=== PATIENT | male | born 1960 | race Caucasian/White ===

== ENCOUNTER 2019-09-25 23:20 | Inpatient (IN) | payer MEDICARE, MEDICAID, SELFPAY ==
--- NOTE | 2019-09-25 23:22 | ED_ITS ---
Entered by Constanza Jones, acting as scribe for Sabina Red HPI - SOB/Dyspnea General: Chief Complaint: Shortness of Breath/Dyspnea Stated Complaint: RESPIRATORY DISTRESS Time Seen by Provider: 09/25/19 23:22 Source: patient and EMS Mode of arrival: EMS History of Present Illness: HPI Narrative: 59 y/o male presents to the ED with complaint of SOB and difficulty breathing. EMS states he has been sick for the past 3-4 days. He has had a cough, yellow sputum and increased difficulty breathing. EMS gave him a breathing treatment en route and report he continued to become more SOB. He was given NTG when his pressure continued to climb ( 170/110). Pt was placed on CPAP after NC O2 became insufficient. EMS reports pedal edema and chest congestion. Pt has hx of CHF. MD elicited complaint: shortness of breath Pertinent past history: other (CHF) Onset (ago): day(s) (3-4) Context: recent illness Timing: progressively worsening Severity: moderate Exacerbating factors: movement, coughing, talking and deep breaths Known history of: congestive heart failure Associated symptoms: Reports cough; Deny abdominal pain, dizziness, extremity pain, fever(s), nausea, polydipsia or vomiting Treatment prior to arrival: oxygen, nitroglycerin, diuretics and other (CPAP) Review of Systems General: Reports: other (negative unless marked) Const: Denies: fever, chills, body aches, fatigue or malaise Eyes: Denies: change in vision or blurry vision ENMT: Denies: throat pain, painful swallowing, hoarseness, ear pain, ear discharge, Change in hearing or nasal discharge Resp: Reports: other (See HPI) GI: Denies: abdominal pain, nausea, vomiting, vomiting blood, coffee grounds in vomit, diarrhea, constipation, cramping, blood in stool or black tarry stool : Denies: flank pain, difficulty urinating, painful urination, urinary frequency, urinary urgency, decreased urine ouput, urinary incontinence or blood in urine Musc: Denies: neck pain, back pain, extremity pain, extremity swelling, joint pain, joint swelling, joint warmth or joint stiffness Skin/Breast: Denies: rash, skin tenderness or yellow skin Neuro: Denies: headache, numbness in extremities, weakness in extremities, changes in sensation, lack of coordination, difficulty walking, dizziness, vertigo or confusion Endo: Denies: excessive thirst, tired all the time, cold intolerance, excessive sweating, flushing or hot flashes Jigar/Lymph: Denies: easy bruising, easy bleeding, petechiae or enlarged lymph nodes All/Imm: Denies: hives, throat swelling, tongue swelling, facial swelling or acute wheezing PFSH ED PFSH: Medical History Hyperlipidemia Hypertension Severe chronic obstructive pulmonary disease Surgical History Hx of inguinal hernia surgery Family History Brother Diabetes Social History Smoking and tobacco status: current every day smoker Alcohol intake: never Substance/Drug Use: never Physical Exam Const: EXAM LIMITATIONS: no altered mental status ORIENTATION/CONSCIOUSNESS: Yes awake HENMT: COMMON NORMALS: normocephalic, head/scalp atraumatic, hearing grossly normal bilaterally, external ears normal, EAC's normal, external nose normal and moist oral mucous membranes HEAD & SCALP: normal to inspection, normocephalic and atraumatic FACE & SINUS: normal facial exam and face symmetric NOSE: external nose normal and nares normal EXTERNAL EAR: Yes external ears normal EXTERNAL AUDITORY CANAL: EAC's normal MOUTH: tongue normal Eye: COMMON NORMALS: PERRL, EOMs intact bilaterally, conjunctivae normal and no scleral icterus GENERAL EYE: normal appearance of both eyes and normal light reflex CONJUNCTIVA: Yes conjunctivae normal SCLERA: sclerae normal CORNEA: Yes corneas normal PUPIL: Yes PERRL DIRECT OPHTHALMOSCOPY: Yes normal light reflex Neck/C-Spine: COMMON NORMALS: full ROM, no lymphadenopathy, supple, no meningeal signs and no JVD GENERAL: Yes normal visual inspection and Yes trachea midline CERVICAL SPINE: Yes cervical ROM normal Chest: COMMONS NORMALS: inspection of chest normal and palpation of chest normal Resp: EFFORT & INSPECTION: Yes abnormal respiratory pattern, Yes tachypneic, Yes respiratory distress, Yes labored, Yes grunting, Yes uses accessory muscles and Yes audible wheezes AUSCULTATION: rhonchi and wheezes Cardio: COMMON NORMALS: no JVD, regular rhythm, S1 normal heart sound, S2 normal heart sound, no gallops, no clicks, no murmurs and no rub JUGULAR VENOUS DISTENTION: no JVD RATE: tachycardic RHYTHM: regular rhythm HEART SOUNDS: S1 normal and S2 normal GI: COMMON NORMALS: non-tender, no hepatosplenomegaly and no masses INSPECTION: Yes normal to inspection PALPATION: Yes no hepatosplenomegaly : COMMON NORMALS: Yes no CVA tenderness BLADDER/KIDNEY EXAM: Yes no CVA tenderness Back/Pelvis: COMMON NORMALS: no CVA tenderness, thoracic and lumbar spine normal to inspection, no thoracic nor lumbar tenderness and thoraco-lumbar ROM normal Neuro: COMMON NORMALS: CN's II-XII intact bilaterally, moves all extremities, no focal motor deficits and no sensory deficits noted MENINGEAL SIGNS: Yes no meningeal signs Psych: COMMON NORMALS: mental status grossly normal, thought process normal, cooperative and affect normal THOUGHT PROCESS: normal thought process Course Vital Signs: Vital signs: Vital Signs Pulse Rate 115 H 09/26/19 01:09 Pulse Oximetry 96 09/26/19 01:09 MDM - SOB/Dyspnea MDM Narrative: Medical decision making narrative: Mr. Ramirez comes in in severe respiratory distress and hypercapnic respiratory failure. After placing him on AVAPS he is doing much better. He has been treated with Solu-Medrol, breathing treatments and he was treated for heart failure by EMS. Clinically he is improving and I have endorsed the case to Dr. Unger. He will be admitted to the hospital for further care. I see no sign or symptom of pulmonary embolism at this time as I believe his cough productive of yellow sputum which is a change from his baseline, his wheezing and his hypercapnic failure are enough to explain his symptoms. Lab Data: Labs: Lab Results 09/25/19 09/25/19 09/25/19 Range/Units 23:45 23:53 23:53 WBC 8.0 (4.0-10.0) 10^3/ uL RBC 5.42 H (4.1-5.3) 10^6/u L Hgb 15.3 (11.7-16.6) g/dL Hct 48.0 (42.0-52.0) % MCV 88.6 (80-94) fL MCH 28.2 (28.0-34.0) pg MCHC 31.9 (30.0-36.0) g/dL RDW 12.5 (12.1-15.1) % Plt Count 143 (130-400) 10^3/c mm MPV 12.2 H (7.4-10.4) fL Neut % (Auto) 87.0 % Lymph % (Auto) 5.1 % Douglas % (Auto) 7.1 % Eos % (Auto) 0.4 % Baso % (Auto) 0.2 % Neut # (Auto) 7.0 (1.8-7.7) 10^3/u L Lymph # (Auto) 0.4 L (0.8-4.8) 10^3/u L Douglas # (Auto) 0.6 (0.2-0.9) 10^3/u L Eos # (Auto) 0.0 (0.0-0.8) 10^3/u L Baso # (Auto) 0.0 (0.0-0.1) 10^3/u L Nucleated RBC % (a uto) 0 % Nucleated RBCs # 0.0 /100WBC Specimen Type Arterial Sample Site Radial, right ABG pH 7.28 L (7.35-7.45) ABG pCO2 81.0 H* (35-45) mmHg ABG pO2 79.9 L (80.0-100.0) mmH g ABG HCO3 37.9 H (22-26) mmol/L ABG Base Excess 7.3 H (-2.0-2.0) mmol/ L Miguel Angel Test Pos Hematocrit 48.8 (42-52) % O2 Delivery Device Bipap FiO2 40.0 % Water Well Driller ID [email or web address] Sodium 141 (136-145) mmol/L Potassium 3.6 (3.5-5.1) mmol/L Chloride 89 L (98-107) mmol/L Carbon Dioxide 35 H (22-29) mmol/L Anion Gap 20.6 H (5-19) BUN 9 (6-20) mg/dL Creatinine 0.5 L (0.7-1.2) mg/dL GFR Calculation 170.2 H (90-130) mL/min Glucose 203 H (65-115) mg/dL Lactic Acid (0.5-2.2) mmol/L Calcium 10.2 (8.5-10.5) mg/dL Magnesium 1.9 (1.7-2.3) mg/dL Total Bilirubin 0.5 (0.15-1.2) mg/dL AST 12 (0-40) U/L ALT 12 (0-41) U/L Alkaline Phosphata se 67 (40-130) IU/L Troponin T Baselin e (0-15) ng/mL NT-Pro-B Natriuret Pep 55 (0-125) pg/mL Total Protein 8.2 (6.6-8.7) g/dL Albumin 4.4 (3.5-5.2) g/dL Globulin 3.8 (1.3-4.6) g/dL 09/25/19 09/25/19 09/26/19 Range/Units 23:53 23:53 00:30 WBC (4.0-10.0) 10^3/ uL RBC (4.1-5.3) 10^6/u L Hgb (11.7-16.6) g/dL Hct (42.0-52.0) % MCV (80-94) fL MCH (28.0-34.0) pg MCHC (30.0-36.0) g/dL RDW (12.1-15.1) % Plt Count (130-400) 10^3/c mm MPV (7.4-10.4) fL Neut % (Auto) % Lymph % (Auto) % Douglas % (Auto) % Eos % (Auto) % Baso % (Auto) % Neut # (Auto) (1.8-7.7) 10^3/u L Lymph # (Auto) (0.8-4.8) 10^3/u L Douglas # (Auto) (0.2-0.9) 10^3/u L Eos # (Auto) (0.0-0.8) 10^3/u L Baso # (Auto) (0.0-0.1) 10^3/u L Nucleated RBC % (a uto) % Nucleated RBCs # /100WBC Specimen Type Arterial Sample Site Radial, left ABG pH 7.28 L (7.35-7.45) ABG pCO2 79.6 H* (35-45) mmHg ABG pO2 68.1 L (80.0-100.0) mmH g ABG HCO3 37.7 H (22-26) mmol/L ABG Base Excess 7.3 H (-2.0-2.0) mmol/ L Miguel Angel Test Pos Hematocrit 48.2 (42-52) % O2 Delivery Device Bipap FiO2 40.0 % Water Well Driller ID [email or web address] Sodium (136-145) mmol/L Potassium (3.5-5.1) mmol/L Chloride (98-107) mmol/L Carbon Dioxide (22-29) mmol/L Anion Gap (5-19) BUN (6-20) mg/dL Creatinine (0.7-1.2) mg/dL GFR Calculation (90-130) mL/min Glucose (65-115) mg/dL Lactic Acid 1.4 (0.5-2.2) mmol/L Calcium (8.5-10.5) mg/dL Magnesium (1.7-2.3) mg/dL Total Bilirubin (0.15-1.2) mg/dL AST (0-40) U/L ALT (0-41) U/L Alkaline Phosphata se (40-130) IU/L Troponin T Baselin e 11 (0-15) ng/mL NT-Pro-B Natriuret Pep (0-125) pg/mL Total Protein (6.6-8.7) g/dL Albumin (3.5-5.2) g/dL Globulin (1.3-4.6) g/dL Imaging Data^: CXR: My impression: Cardiomegaly with borderline mild vascular congestion. EKG Data^: EKG 1: Attestation: I personally reviewed and interpreted this EKG as follows: EKG Interpretation Date: 09/25/19 EKG interpretation time: 23:56 Interpretation: Sinus tachycardia with a rate of 126, narrow QRS, nonspecific ST and T wave changes. Discharge Plan Discharge Patient Disposition: Admitted As Inpatient Admit Provider: Harry Fair Clinical Impression: Severe chronic obstructive pulmonary disease Condition: Stable Coding Level of Care Code ED Specialist Icu for Chg Fwd Exam Comprehensive The documentation recorded by the Robert irene Ashley, accurately reflects the service I personally performed and the decisions made by Neda tijerina Eli N Sep 25, 2019 23:20
--- NOTE | 2019-09-25 23:22 | XR_ITS ---
WS: [id number] XR chest 1V portable [id number] REASON FOR EXAM: cough FINDINGS: Comparisons were made to October 21, 2018. There is evidence of a reticular pattern throughout both lung bowling these are increased since previo us exam and suggests chronic bronchitis. There is no definite pneumonia or pulmonary edema seen today. The heart is within normal limits. XR/XR chest 1V portable [id number] IMPRESSION: Increased markings bilaterally suggesting chronic bronchitis.
[2019-09-25 23:23] VITALS: PULSE 131; RESP 27; O2SAT 94
--- NOTE | 2019-09-25 23:23 | ECG_ITS ---
Measurements Intervals [place] Rate: 126 P: 74 IA: 155 QRS: 85 QRSD: 98 T: 74 QT: 335 QTc: [address] & T-WAVE ABNORMALITY ABNORMAL RHYTHM ECG Compared to ECG 11/21/2018 13:32:25 T-wave abnormality now present Electronically Signed On 09-26-2019 9:13:48 LABORER DRIVER by Villa Hart M.D. [email or web address]
[2019-09-25] MEDS: nitroglycerin 1 gm/inch oint Pkt 1 INCH TOPICAL (23:39)
[2019-09-25 23:56] LABS: ABG PH Result 7.28 (7.35-7.45); Arterial Blood Gas Hematocrit 48.8 % (42-52); Base Excess ABG 7.3 mmol/L (-2.0-2.0); Blood Gas Allen Test Pos; Blood Gas Sample Site Radial, right; Blood Gas Sample Type Arterial; HCO3 ABG 37.9 mmol/L (22-26); Oxygen Device BIPAP; PO2 ABG 79.9 mmHg (80.0-100.0)
[2019-09-25 23:59] LABS: Basophils % 0.2 %; Eosinophils % 0.4 %; Hemoglobin 15.3 g/dL (11.7-16.6); Lymphocytes # 0.4 10^3/uL (0.8-4.8); Lymphocytes % 5.1 %; Mean Corpuscular HGB Conc 31.9 g/dL (30.0-36.0); Mean Corpuscular Hemoglobin 28.2 pg (28.0-34.0); Mean Corpuscular Volume 88.6 fL (80-94); Mean Platelet Volume 12.2 fL (7.4-10.4); Monocytes # 0.6 10^3/uL (0.2-0.9); Monocytes % 7.1 %; Nucleated Red Blood Cells % 0 %; Platelet Count 143 10^3/cmm (130-400); Red Blood Count 5.42 10^6/uL (4.1-5.3); Red Cell Distribution Width 12.5 % (12.1-15.1)
[2019-09-26] VITALS (201 sets, daily range): BP systolic 102–181; BP diastolic 63–119; PULSE 65–128; RESP 15–33; O2SAT 81–98
[2019-09-26 00:15] LABS: Lactic Sepsis W/Reflex 1.4 mmol/L (0.5-2.2)
[2019-09-26 00:17] LABS: Troponin(5th) Baseline 11 ng/mL (0-15)
[2019-09-26 00:25] LABS: Alanine Aminotransferase 12 U/L (0-41); Albumin Level 4.4 g/dL (3.5-5.2); Alkaline Phosphatase 67 IU/L (40-130); Anion Gap 20.6 (5-19); Aspartate Amino Transferase 12 U/L (0-40); Blood Urea Nitrogen 9 mg/dL (6-20); Calcium 10.2 mg/dL (8.5-10.5); Carbon Dioxide 35 mmol/L (22-29); Chloride 89 mmol/L (98-107); Globulin 3.8 g/dL (1.3-4.6); Glomerular Filtration Rate 170.2 mL/min (90-130); Glucose 203 mg/dL (65-115); Magnesium 1.9 mg/dL (1.7-2.3); NT Pro B Type Natriuretic Pept 55 pg/mL (0-125); Potassium 3.6 mmol/L (3.5-5.1); Sodium 141 mmol/L (136-145); Total Bilirubin 0.5 mg/dL (0.15-1.2); Total Protein 8.2 g/dL (6.6-8.7)
[2019-09-26 00:40] LABS: ABG PH Result 7.28 (7.35-7.45); Arterial Blood Gas Hematocrit 48.2 % (42-52); Base Excess ABG 7.3 mmol/L (-2.0-2.0); Blood Gas Allen Test Pos; Blood Gas Sample Site Radial, left; Blood Gas Sample Type Arterial; HCO3 ABG 37.7 mmol/L (22-26); Oxygen Device BIPAP; PO2 ABG 68.1 mmHg (80.0-100.0)
[2019-09-26 00:41] LABS: ABG PCO2 79.6 mmHg (35-45)
--- NOTE | 2019-09-26 01:32 | PM.HP ---
Providers/Chief Complaint Primary Care Provider: EMMIE Freedman Chief Complaint: RESPIRATORY DISTRESS History of Present Illness Conrad Ramirez is a 59 year old male with a past medical history of COPD 5 to 6 L oxygen dependent continuously (spirometry in 2014 showed an FEV1 40% of predicted, FVC 64% of predicted, FEV1 over FVC severely reduced at 62%, total lung capacity is 264% consistent with hyperinflation, hypertension, hyperlipidemia, chronic smoker, obesity who presents emergency room due to complaints of shortness of breath. Currently patient is in acute respiratory failure on BiPAP, history was difficult to obtain, but was able to answer short a few basic questions, answer yes or no questions. Patient states that he presented to the emergency room today due to shortness of breath and cough. Patient states that recently has been having more shortness of breath with exertion, to minimal exertion, and shortness of breath now at rest. His cough is been nonproductive. No fevers. No chills. No sick contacts. No recent antibiotic use. No recent steroid use. Patient continues to smoke. He uses 5 to 6 L oxygen throughout the day. No history of DAWIT, does not use CPAP. Does complain of some substernal chest pain, with his shortness of breath, nonradiating, no diaphoresis, no nausea, no vomiting. Review of Systems Const: Denies: fever, chills, fatigue or malaise Eyes: Denies: change in vision or blurry vision ENMT: Denies: nasal congestion Card: Reports: chest pain; Denies: palpitations, irregular heart rhythm or lightheadedness Resp: Reports: shortness of breath and non-productive cough; Denies: productive cough or wheezing GI: Denies: abdominal pain, nausea, vomiting, vomiting blood, diarrhea, constipation, blood in stool or black tarry stool : Denies: flank pain, difficulty urinating, painful urination or urinary frequency Musc: Denies: neck pain or back pain Skin/Breast: Denies: rash Neuro: Denies: headache, dizziness or vertigo Psych: Denies: anxiety or depression Endo: Denies: excessive urination or excessive thirst Medications/Allergies Additional Medication Information Additional Medication Information: Patient does not know which medications he takes at home, PFSH Acute PFSH: Medical History (Updated 09/26/19 @ 01:40 by Harry Fair MD) Hyperlipidemia Hypertension Severe chronic obstructive pulmonary disease Surgical History (Updated 09/26/19 @ 01:40 by Harry Fair MD) Hx of inguinal hernia surgery Family History (Updated 09/26/19 @ 01:40 by Harry Fair MD) Brother Diabetes Social History (Updated 09/26/19 @ 01:40 by Harry Fair MD) Smoking and tobacco status: current every day smoker Alcohol intake: never Substance/Drug Use: never Vitals/I&O/Wt Last Vital Signs Pulse 115 H 09/26/19 01:09 Pulse Ox 96 09/26/19 01:09 Physical Exam Const: COMMON NORMALS: oriented x3 GENERAL APPEARANCE: cooperative, disheveled and diaphoretic NUTRITIONAL APPEARANCE: obese HENMT: COMMON NORMALS: normocephalic HEAD & SCALP: normocephalic Eye: COMMON NORMALS: PERRL, EOMs intact bilaterally and no papilledema GENERAL EYE: normal appearance of both eyes PUPIL: Yes PERRL DIRECT OPHTHALMOSCOPY: Yes no papilledema Neck/C-Spine: COMMON NORMALS: full ROM, no lymphadenopathy, no JVD and thyroid normal THYROID: thyroid normal Lymph: LYMPHATIC: no lymphadenopathy noted Resp: COMMON NORMALS: normal respiratory effort EFFORT & INSPECTION: Yes abnormal respiratory pattern and Yes tachypneic AUSCULTATION: clear to auscultation bilaterally and breath sounds absent (Diminished breath sounds bilaterally) Cardio: COMMON NORMALS: no JVD, regular rate, regular rhythm, S1 normal heart sound, S2 normal heart sound, no gallops, no clicks and no murmurs RATE: tachycardic RHYTHM: regular rhythm HEART SOUNDS: S1 normal and S2 normal GI: COMMON NORMALS: normal to inspection, nondistended, normoactive bowel sounds, soft to palpation, non-tender and no hepatosplenomegaly PALPATION: Yes soft and Yes no hepatosplenomegaly Extremity: COMMON NORMALS: normal to inspection, full ROM, normal capillary refill and no pedal edema Neuro: COMMON NORMALS: oriented x3, moves all extremities and no focal motor deficits OTHER: Cannot follow full neurologic exam due to somnolence, and as it is on BiPAP Psych: COMMON NORMALS: mental status grossly normal and cooperative THOUGHT PROCESS: normal thought process Data : 09/25/19 23:53 09/25/19 23:53 Micro: Microbiology 09/25/19 23:42 Blood Culture - Preliminary Blood SPECIMEN COLLECTED 09/25/19 23:53 Blood Culture - Preliminary Blood SPECIMEN COLLECTED A&P Assessment and plan (1) Acute on chronic respiratory failure with hypoxia and hypercapnia: Secondary to COPD exacerbation, obesity hypoventilation syndrome Patient is a chronic CO2 retainer, PCO2 has been as high as 90s in the past No diagnosis of sleep apnea, but likely has it Plan: -Admit to the ICU -Patient's PCO2 is improving, has been switched over to a avaps, if PCO2 improves continue BiPAP, patient is full code -Patient does have episodes of somnolence, thus a AVAPS will work better, but is arousable, sitting up in the gurney -Continue ipratropium every 4 hours scheduled, every 2 hours as needed -Solu-Medrol 125 followed like 40 every 8 hours -IV hydration -Doxycycline for anti-inflammatory effect, I cannot see any pneumonia on the chest x-ray, pro-Bishnu pending -CT of the chest -Cardiac echocardiogram -Patient will likely benefit from a BiPAP machine as outpatient for chronic CO2 retention Status: Acute Code(s): J96.21 - Acute and chronic respiratory failure with hypoxia; J96.22 - Acute and chronic respiratory failure with hypercapnia (2) Severe chronic obstructive pulmonary disease: Status: Acute Code(s): J44.9 - Chronic obstructive pulmonary disease, unspecified (3) Sinus tachycardia: Likely secondary to acute respiratory failure, continue telemetry monitoring Status: Acute Code(s): R00.0 - Tachycardia, unspecified (4) Hyperlipidemia: Status: Acute Code(s): E78.5 - Hyperlipidemia, unspecified (5) Hypertension: Status: Acute Code(s): I10 - Essential (primary) hypertension (6) Chest pain: -No active chest pain -EKG shows sinus tachycardia -Troponins pending Plan: -Trend troponins, serial EKGs -Aspirin, statin -Patient did have a negative cardiac catheterization in 2010 Status: Acute Code(s): R07.9 - Chest pain, unspecified Attestations Medical Necessity Statement*: Patient requires ICU mission, greater than 2 midnights, for acute respiratory failure secondary COPD Coding Level of Care Code 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
[2019-09-26 01:41] LABS: ABG PH Result 7.33 (7.35-7.45); Arterial Blood Gas Hematocrit 47.4 % (42-52); Base Excess ABG 9.1 mmol/L (-2.0-2.0); Blood Gas Allen Test Pos; Blood Gas Sample Site Radial, right; Blood Gas Sample Type Arterial; HCO3 ABG 38.5 mmol/L (22-26); Oxygen Device BIPAP; PO2 ABG 69.2 mmHg (80.0-100.0)
[2019-09-26 01:42] LABS: ABG PCO2 73.1 mmHg (35-45)
[2019-09-26 02:18] LABS: Troponin 5 2HR 11.39 ng/mL (0-15); Troponin 5 2HR Delta 0.39 ABS# (0-10)
[2019-09-26 02:23] LABS: Bilirubin Urine Neg (NEGATIVE); Blood Urine Neg (Negative); Glucose Urine UA Norm (Normal); Ketones Urine Negative (Negative); Leukocyte Esterase Urine Negative (Negative); Nitrate Urine Negative (Negative); Protein Urine 3+ (Negative); Urine Appearance Clear (CLEAR); Urine Color Yellow (Yellow); Urobilinogen Urine Norm (Negative); pH Urine 5 (5-7)
[2019-09-26 02:24] LABS: Bacteria Urine TRACE; Mucus Urine TRACE; RBC Urine 0-4 /hpf (0-2); Squamous Epithelial Cell Urine 0-4 (0-5); WBC Urine 0-4 /hpf (0-5)
[2019-09-26 02:25] LABS: Add Urine Culture? No
[2019-09-26 02:29] LABS: Amphetamines Screen Urine Negative (Negative); Barbiturates Screen Urine Negative (Negative); Benzodiazepines Screen Urine Negative (Negative); Cocaine Screen Urine Negative (Negative); Opiate Screen Urine Negative (Negative); PCP Screen Urine Negative (Negative); THC Screen Urine Negative (Negative)
--- NOTE | 2019-09-26 02:39 | USCV_ITS ---
Conrad Ramirez Age: 59 Gender: M : 1960 Exam Date: 09/26/2019 06:20 Ordering Phys: Harry Fair MD Technologist: Beckie Kaur Exam Location[place] [facility] [place] Indication: SOB BP: 156 / 90 HR: 89 Rhythm: Sinus Technical Quality: Suboptimal MEASUREMENTS (Male / Female) Normal Values 2D ECHO LV Diastolic Diameter PLAX 3.7 cm 4.2 - 5.9 / 3.9 - 5.3 cm LV Systolic Diameter PLAX 2.8 cm LV Chamber Size 2.7 cm IVS Diastolic Thickness 1.7 cm 0.6 - 1.0 / 0.6 - 0.9 cm IVS Systolic Thickness 1.3 cm LVPW Diastolic Thickness 2.0 cm 0.6 - 1.0 / 0.6 - 0.9 cm LVPW Systolic Thickness 2.3 cm RV Chamber Size 2.8 cm LVOT Diameter 2.1 cm LV Ejection Fraction 2D Teich 47.6 % LV Ejection Fraction MOD 2C 41.3 % LV Ejection Fraction 2C AL 37.2 % LA Diameter 3.2 cm LA Width 3.3 cm LA Height 4.0 cm RA Width 3.8 cm RA Height 2.8 cm Aorta at Sinotubular Diameter 3.1 cm M-MODE LV Diastolic Diameter MM 3.3 cm 4.2 - 5.9 / 3.9 - 5.3 cm LV Systolic Diameter MM 2.1 cm LV Ejection Fraction MM Teich 66.5 % IVS Diastolic Thickness MM 1.1 cm 0.6 - 1.0 / 0.6 - 0.9 cm IVS Systolic Thickness MM 1.6 cm LVPW Diastolic Thickness MM 1.6 cm 0.6 - 1.0 / 0.6 - 0.9 cm LVPW Systolic Thickness MM 1.7 cm RV Diastolic Diameter MM 1.8 cm Aortic Annulus Diameter 3.1 cm LA Ao Ratio MM 1.0 MV E Point Septal Separation 0.5 cm DOPPLER AV Peak Velocity 165.0 cm/s LVOT Peak Velocity 119.0 cm/s AV Area Cont Eq vti 2.2 cm squared AV Area Cont Eq pk 2.4 cm squared MV Area PHT 8.5 cm squared Mitral E to A Ratio 0.8 MV E' Velocity 11.0 cm/s Mitral E to MV E' Ratio 9.4 Mitral E to LV E' Lateral Ratio 8.6 Mitral E to LV E' Septal Ratio 10.5 TR Peak Velocity 188.2 cm/s TR Peak Gradient 14.2 mmHg TR Mean Velocity 138.7 cm/s TR Mean Gradient 8.9 mmHg TR Velocity Time Integral 48.5 cm TV Peak E Velocity 72.0 cm/s Right Atrial Pressure 5.0 mmHg Pulmonary Artery Systolic Pressu 19.2 mmHg PV Peak Velocity 75.0 cm/s RV Acceleration Time 0.2 s RV Ejection Time 0.4 s RV AcT/ET 0.5 FINDINGS Left Ventricle Left ventricular cavity not well visualized. Normal left ventricular size, systolic function and wall thickness, with no regional wall motion abnormalities. Grade I/IV diastolic dysfunction (abnormal relaxation filling pattern), normal to mildly elevated filling pressures. Left ventricular ejection fraction is estimated at 60%. Right Ventricle Right ventricle not well visualized. Normal right ventricular size and systolic function. Normal right ventricular systolic pressure. Right Atrium The right atrium is normal in size. Left Atrium The left atrium is normal in size. Mitral Valve Mitral valve not well visualized. No mitral valve regurgitation. Aortic Valve Aortic valve not well visualized. No aortic valve regurgitation. No aortic valve stenosis. Tricuspid Valve Tricuspid valve not well visualized. Pulmonic Valve Pulmonic valve not well visualized. Pericardium Normal pericardium without effusion. Aorta Normal ascending aorta dimension. CONCLUSIONS Left ventricular cavity not well visualized. Normal left ventricular size, systolic function and wall thickness, with no regional wall motion abnormalities. Grade I/IV diastolic dysfunction (abnormal relaxation filling pattern), normal to mildly elevated filling pressures. Left ventricular ejection fraction is estimated at 60%. Technically limited study. No significant valve abnormalities. No change from the previous study done 04/03/2015 Dr. Villa Hart MD (Electronically Signed) Final Date: 26 September 2019 09:05 S
--- NOTE | 2019-09-26 02:39 | CTR_ITS ---
PROCEDURE INFORMATION: Exam: CT Chest With Contrast Exam date and time: 09/26/2019 4:18 AM Age: 59 years old Clinical indication: Shortness of breath; Additional info: SOB TECHNIQUE: Imaging protocol: Computed tomography of the chest with intravenous contrast. Total DLP: 1037.79 mGy-cm Radiation optimization: All CT scans at this facility use at least one of these dose optimization techniques: automated exposure control; mA and/or kV adjustment per patient size (includes targeted exams where dose is matched to clinical indication); or iterative reconstruction. Contrast material: OMNI 300; Contrast volume: 95 ml; Contrast route: RT AC; COMPARISON: CT chest w con* [id number] 10/28/2016 10:03 AM FINDINGS: Lungs: Apical predominant emphysematous change appears stable. There is an unchanged 7 mm spiculated nodule within the right upper lobe (image 16, series 3). Additional subpleural subcentimeter nodules within the right upper lobe are not significantly changed. Additional scattered 6 mm and less bilateral pulmonary nodules are unchanged. No new pulmonary nodules identified. There is no focal consolidation. There is unchanged chronic interstitial thickening with bilateral reticular opacities. Pleural space: No pneumothorax. No pleural effusion. Heart: No cardiomegaly. No pericardial effusion. Aorta: No aortic aneurysm. Lymph nodes: Multiple mildly enlarged mediastinal and right hilar lymph nodes, some which are calcified appear stable to slightly increased in size from prior with the largest a left paratracheal node measuring up to 1.4 cm in short axis (image 27, series 2). Bones/joints: No acute fracture. Soft tissues: Unremarkable. CT/CT chest w con* [id number] IMPRESSION: 1. Stable appearance of emphysematous change with scattered bilateral pulmonary nodules. There is no focal consolidation. No new pulmonary nodules identified. Continued surveillance per clinical protocol is suggested. 2. Stable to mild interval increase of mediastinal and right hilar adenopathy, which may be reactive. Attention on follow-up suggested. Radiation Dose CTDIVOL = (mGy): DLP = 1037.79 (mGy-cm)
[2019-09-26] MEDS: ipratropium-albuterol 3 mL Neb INHALATION ×6 (03:22→23:16)
[2019-09-26 04:21] LABS: Influenza A by IFA Negative (Negative); Influenza B by IFA Negative (Negative)
[2019-09-26] MEDS: sodium chloride 0.9% 1,000 ML 100 ML IV (04:50)
[2019-09-26] MEDS: doxycycline 100 MG in sodium chloride 0.9% (plus) 100 ML IV (04:51)
[2019-09-26] MEDS: amlodipine 10 mg Tablet PO (04:52)
[2019-09-26] MEDS: enoxaparin 40 mg/0.4 mL Syringe SUBCUT (04:52)
[2019-09-26] MEDS: aspirin 81 mg EC Tablet PO ×2 (04:53→09:13)
[2019-09-26] MEDS: atorvastatin 40 mg Tablet PO ×2 (04:53→20:17)
--- NOTE | 2019-09-26 05:23 | ECG_ITS ---
Measurements Intervals [place] Rate: 108 P: 83 DE: 148 QRS: 80 QRSD: 98 T: 73 QT: 322 QTc: 432 SINUS TACHYCARDIA RIGHT ATRIAL ENLARGEMENT [0.3mV P WAVE] POSSIBLE LEFT ATRIAL ENLARGEMENT [-0.1mV P WAVE IN V1/V2] NONSPECIFIC T-WAVE ABNORMALITY Compared to ECG 11/21/2018 13:32:25 T-wave abnormality now present Electronically Signed On 09-26-2019 9:15:05 HAND TRIMMER by Villa Hart M.D. [email or web address]
--- NOTE | 2019-09-26 06:00 | PC.NURSE ---
patient arrived at 0230, sob but no complaints of pain. he came o stretcher and 3 staff helped him transfer to his bed and settled him. patient is alert, oriented and pleasant. patient on bipap on arrival
[2019-09-26 06:36] LABS: Basophils % 0.2 %; Hematocrit 44.6 % (42.0-52.0); Hemoglobin 14.4 g/dL (11.7-16.6); Lymphocytes # 0.2 10^3/uL (0.8-4.8); Lymphocytes % 3.7 %; Mean Corpuscular HGB Conc 32.3 g/dL (30.0-36.0); Mean Corpuscular Hemoglobin 28.3 pg (28.0-34.0); Mean Corpuscular Volume 87.8 fL (80-94); Mean Platelet Volume 12.3 fL (7.4-10.4); Monocytes # 0.1 10^3/uL (0.2-0.9); Monocytes % 1.3 %; Neutrophils # 5.8 10^3/uL (1.8-7.7); Neutrophils % 94.6 %; Nucleated Red Blood Cells % 0 %; Platelet Count 140 10^3/cmm (130-400); Red Blood Count 5.08 10^6/uL (4.1-5.3); Red Cell Distribution Width 12.6 % (12.1-15.1); White Blood Count 6.2 10^3/uL (4.0-10.0)
[2019-09-26 06:49] LABS: Alanine Aminotransferase 11 U/L (0-41); Albumin Level 4.1 g/dL (3.5-5.2); Alkaline Phosphatase 61 IU/L (40-130); Anion Gap 13.4 (5-19); Aspartate Amino Transferase 11 U/L (0-40); Blood Urea Nitrogen 13 mg/dL (6-20); Calcium 10.1 mg/dL (8.5-10.5); Carbon Dioxide 38 mmol/L (22-29); Chloride 93 mmol/L (98-107); Globulin 3.7 g/dL (1.3-4.6); Glomerular Filtration Rate 220.2 mL/min (90-130); Glucose 164 mg/dL (65-115); Potassium 4.4 mmol/L (3.5-5.1); Sodium 140 mmol/L (136-145); Total Bilirubin 0.3 mg/dL (0.15-1.2); Total Protein 7.8 g/dL (6.6-8.7)
[2019-09-26 06:51] LABS: Troponin 5 6HR 13.72 ng/mL (0-15); Troponin 5 6HR Delta 2.72 ng/L (0-12)
[2019-09-26 07:01] LABS: Procalcitonin 0.12 ng/mL (0-0.5)
[2019-09-26 07:06] LABS: Magnesium 2.1 mg/dL (1.7-2.3); Phosphorus 2.8 mg/dL (2.5-4.5)
[2019-09-26 07:08] LABS: Estmated Average Glucose 105; Hemoglobin A1C 5.3 % (4.0-6.0)
[2019-09-26 07:12] LABS: Chol HDL Ratio 4.14 mg/dL (1.0-5.00); Cholesterol 207 mg/dL (0-200); HDL Cholesterol 50 mg/dL (60-100); LDL Cholesterol Calculated 138 mg/dL (50-129); LDL HDL Ratio 2.76 RATIO (0.00-3.22); Triglycerides 93 mg/dL (0-150)
--- NOTE | 2019-09-26 07:33 | PM.PN ---
Subjective Subjective: Interval history: Patient sleeping when I entered the room. Currently on BiPAP. History and physical reviewed. No specific complaints. Vitals/I&O/Wt Last Vital Signs Pulse 71 09/26/19 05:23 Resp 21 H 09/26/19 04:00 BP 119/82 09/26/19 04:00 Pulse Ox 92 09/26/19 05:23 09/25/19 09/26/19 09/26/19 22:59 06:59 14:59 Intake Total 83.333 / 83.333 Balance 83.333 / 83.333 Weight last 48 hrs Weight 122.651 kg Physical Exam Narrative: EXAM NARRATIVE: General exam is no apparent distress Cardiovascular mild tachycardia, regular, no murmur Lungs diminished breath sounds bilaterally. A few expiratory wheezes are noted Abdomen is soft, positive bowel sounds Extremities trace to 1+ edema bilaterally Data : 09/26/19 06:25 09/26/19 06:25 Micro: Microbiology 09/25/19 23:42 Blood Culture - Preliminary Blood SPECIMEN COLLECTED 09/25/19 23:53 Blood Culture - Preliminary Blood SPECIMEN COLLECTED A&P Assessment and plan (1) Severe chronic obstructive pulmonary disease: Continue IV steroids currently. On 40 mg IV every 8 hours. Will reduce dose slightly. Continue pulmonary toilet with albuterol and Atrovent every 4 hours Change doxycycline to p.o. Status: Acute Code(s): J44.9 - Chronic obstructive pulmonary disease, unspecified (2) Acute on chronic respiratory failure with hypoxia and hypercapnia: Status: Acute Code(s): J96.21 - Acute and chronic respiratory failure with hypoxia; J96.22 - Acute and chronic respiratory failure with hypercapnia (3) Hyperglycemia: A1c normal. Likely blood sugar elevation will resolve with decrease of steroids and eventual discontinue Status: Acute Code(s): R73.9 - Hyperglycemia, unspecified (4) Tobacco dependency: Counseled on abstaining from smoking Status: Acute Code(s): F17.200 - Nicotine dependence, unspecified, uncomplicated Additional A&P Information Hyperlipidemia Hypertension, controlled DVT prophylaxis with Lovenox Reduce IV fluids Laboratory in the a.m. Echocardiogram, CT chest, and TSH have been ordered and are pending from admitting physician. Await results. Attestations Medical Necessity Statement*: Needs continued hospital stay for frequent breathing treatments, support with BiPAP secondary to hypercarbic respiratory failure Coding Level of Care Code Acute Special Effects Designer for Chg F[employer] Diagnoses Severe chronic obstructive pulmonary disease J44.9 Acute on chronic respiratory failure with hypoxia and hypercapnia J96.21; J96.22 Hyperglycemia R73.9 Tobacco dependency F17.200
[2019-09-26 08:12] LABS: Thyroid Stimulating Hormone 1.04 uIU/mL (0.27-4.20)
[2019-09-26] MEDS: iohexol 300 mg/mL 100 mL Btl IV (09:08)
[2019-09-26] MEDS: doxycycline 100 mg Tablet PO ×2 (09:13→17:26)
[2019-09-26] MEDS: FUROsemide 40 mg Tablet PO ×2 (09:13→17:26)
[2019-09-26] MEDS: fenofibrate 145 mg Tablet PO (09:13)
[2019-09-26] MEDS: roflumilast 500 mcg Tablet PO (09:13)
[2019-09-26] MEDS: sodium chloride 0.9% 1,000 ML 50 ML IV (20:16)
[2019-09-27] VITALS (40 sets, daily range): BP systolic 113–147; BP diastolic 60–84; PULSE 60–120; RESP 9–26; TEMP 36.6–37.1; O2SAT 89–98
[2019-09-27] MEDS: enoxaparin 40 mg/0.4 mL Syringe SUBCUT (02:55)
[2019-09-27] MEDS: ipratropium-albuterol 3 mL Neb INHALATION ×6 (03:32→23:16)
[2019-09-27 05:33] LABS: Basophils % 0.2 %; Hematocrit 42.8 % (42.0-52.0); Hemoglobin 13.4 g/dL (11.7-16.6); Lymphocytes # 0.5 10^3/uL (0.8-4.8); Lymphocytes % 8.3 %; Mean Corpuscular HGB Conc 31.3 g/dL (30.0-36.0); Mean Corpuscular Hemoglobin 27.8 pg (28.0-34.0); Mean Corpuscular Volume 88.8 fL (80-94); Mean Platelet Volume 12.5 fL (7.4-10.4); Monocytes # 0.4 10^3/uL (0.2-0.9); Monocytes % 6.3 %; Neutrophils # 5.5 10^3/uL (1.8-7.7); Neutrophils % 84.7 %; Nucleated Red Blood Cells % 0 %; Platelet Count 133 10^3/cmm (130-400); Red Blood Count 4.82 10^6/uL (4.1-5.3); Red Cell Distribution Width 12.3 % (12.1-15.1); White Blood Count 6.5 10^3/uL (4.0-10.0)
[2019-09-27 05:51] LABS: Alanine Aminotransferase 10 U/L (0-41); Albumin Level 3.3 g/dL (3.5-5.2); Alkaline Phosphatase 53 IU/L (40-130); Anion Gap 11.4 (5-19); Aspartate Amino Transferase 11 U/L (0-40); Blood Urea Nitrogen 18 mg/dL (6-20); Carbon Dioxide 39 mmol/L (22-29); Chloride 95 mmol/L (98-107); Globulin 3.9 g/dL (1.3-4.6); Glomerular Filtration Rate 220.2 mL/min (90-130); Glucose 154 mg/dL (65-115); Magnesium 2.3 mg/dL (1.7-2.3); Phosphorus 2.8 mg/dL (2.5-4.5); Potassium 4.4 mmol/L (3.5-5.1); Sodium 141 mmol/L (136-145); Total Bilirubin 0.2 mg/dL (0.15-1.2); Total Protein 7.2 g/dL (6.6-8.7)
[2019-09-27] MEDS: doxycycline 100 mg Tablet PO ×2 (08:55→17:10)
[2019-09-27] MEDS: aspirin 81 mg EC Tablet PO (08:55)
[2019-09-27] MEDS: fenofibrate 145 mg Tablet PO (08:55)
[2019-09-27] MEDS: roflumilast 500 mcg Tablet PO (08:55)
[2019-09-27] MEDS: amlodipine 10 mg Tablet PO (08:56)
[2019-09-27] MEDS: FUROsemide 40 mg Tablet PO ×2 (08:56→17:10)
--- NOTE | 2019-09-27 12:17 | P.PN_ITS ---
Subjective Subjective: Interval history: He is feeling a little bit better. This morning was weaned down to nasal cannula, although currently back to BiPAP as he was going to take a nap. Vitals/I&O/Wt Last Vital Signs Temp 98.7 F 09/27/19 12:00 Pulse 120 H 09/27/19 12:00 Resp 22 H 09/27/19 12:00 BP 130/70 09/27/19 12:00 Pulse Ox 90 09/27/19 12:00 09/26/19 09/27/19 09/27/19 22:59 06:59 14:59 Intake Total 1100 / 1685 240 / 1925 1140 / 1140 Output Total 600 / 1300 600 / 1900 1300 / 1300 Balance 500 / 385 -360 / 25 -160 / -160 Weight last 48 hrs Weight 122.651 kg Physical Exam Const: COMMON NORMALS: no apparent distress and oriented x3 HENMT: COMMON NORMALS: oropharynx normal Neck/C-Spine: COMMON NORMALS: no JVD Resp: AUSCULTATION: diminished lung sounds OTHER: BiPAP mask on. Cardio: COMMON NORMALS: no JVD, regular rhythm, S1 normal heart sound, S2 normal heart sound and no murmurs RHYTHM: regular rhythm HEART SOUNDS: S1 normal and S2 normal GI: COMMON NORMALS: normal to inspection, nondistended, normoactive bowel sounds, soft to palpation and non-tender PALPATION: Yes soft Extremity: COMMON NORMALS: no joint enlargement and no pedal edema OTHER: Bilateral chronic venous stasis changes, but no edema. Neuro: COMMON NORMALS: oriented x3 and moves all extremities Skin: COMMON NORMALS: no rashes or lesions noted GENERAL SKIN EXAM: no rashes or lesions noted Data : 09/27/19 04:42 09/27/19 04:42 Micro: Microbiology 09/26/19 05:30 Gram Stain - Final Sputum - Expectorated Sputum Sputum Culture - Preliminary 09/25/19 23:42 Blood Culture - Preliminary Blood NEGATIVE TO DATE 09/25/19 23:53 Blood Culture - Preliminary Blood NEGATIVE TO DATE 09/26/19 01:53 Bacterial Antigens - Final Urine,Voided A&P Assessment and plan (1) Severe chronic obstructive pulmonary disease: Given slow improvement for now we will continue IV steroids unchanged. They were reduced to 40 mg every 12 hours. Continue pulmonary toilet with albuterol and Atrovent every 4 hours Continue doxycycline for now. CT chest with stable appearing emphysema, scattered bilateral pulmonary nodules. No focal consolidation. CT chest with contrast without obvious reported PE. Stable mediastinal and right hilar adenopathy which may be reactive. Consider follow-up. We will transfer him out of ICU. Continuous pulse oximetry. He reports at home he is on 5 L oxygen chronically by nasal cannula. Given severity of his COPD, slow improvement, hypercapnia, will assess with overnight pulse oximetry as he may likely benefit from BiPAP at home. Status: Acute Code(s): J44.9 - Chronic obstructive pulmonary disease, unspecified (2) Acute on chronic respiratory failure with hypoxia and hypercapnia: Severe distribution of COPD. As above. Status: Acute Code(s): J96.21 - Acute and chronic respiratory failure with hypoxia; J96.22 - Acute and chronic respiratory failure with hypercapnia (3) Hyperglycemia: A1c normal. Glucose with some improvement. Likely were secondary to steroids currently. Status: Acute Code(s): R73.9 - Hyperglycemia, unspecified (4) Tobacco dependency: Encourage cessation. Status: Acute Code(s): F17.200 - Nicotine dependence, unspecified, uncomplicated Additional A&P Information Hyperlipidemia Hypertension, controlled DVT prophylaxis with Lovenox Attestations Medical Necessity Statement*: Continue admission for assessment management of severe exacerbation of COPD, acute on severe failure with hypoxia, hypercapnia. Coding Level of Care Code Acute Seasonal Sales Associate for Chg Fwd Diagnoses Severe chronic obstructive pulmonary disease J44.9 Acute on chronic respiratory failure with hypoxia and hypercapnia J96.21; J96.22 Hyperglycemia R73.9 Tobacco dependency F17.200
--- NOTE | 2019-09-27 13:14 | PC.CHAP ---
Pastoral Care Encounter/Spiritual Assessment Type of Contact [] Declined allergist visit [] Patient/Family/Request visit [] Outpatient visit [] Follow-up visit [] Physician referral [] Code/Alert [x] Routine visit [] Staff referral [] Actively dying [] Patient sleeping [] Family support [] [] Out of room [] Palliative care [] [] Receiving care in room [] Pre-surgical visit [] Trauma [] Long length of stay [x] ICU visit [] Other: Relational/Emotional Strength [x] Patient feels connected with others/family/visitors/staff [] Distress [] Loneliness/isolation [x] Abandonment Spirituality of Patient [] Person of [place] [] Attends Anglican of their [place] [x] Believes in Prayer [] Reads Bible or Sikh materials [] There are Spiritual issues to be addressed Crate Icer Interventions [x] Prayer [x] Active listening [x] Non-anxious presence [x] Spiritual/emotional support [] Crisis/trauma care [] Spiritual counseling [] Bereavement support [] Provided bereavement packet [] Provided Bible/devotional materials [] Provided toy/stuffed animal, coloring book to patient or family member [] Provided Communion [] Anointing/[place] [] Salvation [x] Completed spiritual assessment [] Other: Impact on Illness or Injury [] Angry [] Fearful [] Anxious [] Often cries [] Exhaustion [] Unable to work [] Unable to attend methodist [] Unable to walk/stand [] Unable to read [] Unable to drive [] Unable to eat/drink [] Unable to sleep [] Unable to be with family [] Patient intubated [] Other: Summary Patient expressed continued grief over his leaving him. Patient stated that he did not know if he had any tests or procedures coming up and wasn't sure what the course of treatment was going to be. Patient asked for prayer for his children; allergist prayed with him. Patient was visited by Crate Icermarnie Mar. Time spent with patient 13 minutes
--- NOTE | 2019-09-27 14:05 | PC.RESP ---
Patient given information on Smoking Cessation and Pulmonary Rehab.
[2019-09-27] MEDS: sodium chloride 0.9% 1,000 ML 50 ML IV (16:12)
--- NOTE | 2019-09-27 19:00 | PC.NURSE ---
Introduction of staff and report received, aidet.
[2019-09-27] MEDS: atorvastatin 40 mg Tablet PO (21:40)
[2019-09-28] VITALS (17 sets, daily range): BP systolic 101–156; BP diastolic 63–79; PULSE 71–117; RESP 16–24; TEMP 36.4–36.8; O2SAT 90–98
[2019-09-28] MEDS: sodium chloride 0.9% 1,000 ML 50 ML IV (01:15)
[2019-09-28] MEDS: ipratropium-albuterol 3 mL Neb INHALATION ×5 (03:20→20:35)
[2019-09-28] MEDS: enoxaparin 40 mg/0.4 mL Syringe SUBCUT (04:28)
[2019-09-28 05:49] LABS: Hematocrit 42.6 % (42.0-52.0); Hemoglobin 13.4 g/dL (11.7-16.6); Lymphocytes # 0.7 10^3/uL (0.8-4.8); Lymphocytes % 9.4 %; Mean Corpuscular HGB Conc 31.5 g/dL (30.0-36.0); Mean Corpuscular Hemoglobin 27.8 pg (28.0-34.0); Mean Corpuscular Volume 88.4 fL (80-94); Mean Platelet Volume 12.6 fL (7.4-10.4); Monocytes # 0.4 10^3/uL (0.2-0.9); Neutrophils # 6.1 10^3/uL (1.8-7.7); Nucleated Red Blood Cells % 0 %; Platelet Count 134 10^3/cmm (130-400); Red Blood Count 4.82 10^6/uL (4.1-5.3); Red Cell Distribution Width 12.3 % (12.1-15.1); White Blood Count 7.1 10^3/uL (4.0-10.0)
[2019-09-28 06:09] LABS: Alanine Aminotransferase 13 U/L (0-41); Albumin Level 3.5 g/dL (3.5-5.2); Alkaline Phosphatase 53 IU/L (40-130); Anion Gap 13.2 (5-19); Aspartate Amino Transferase 14 U/L (0-40); Blood Urea Nitrogen 16 mg/dL (6-20); Calcium 9.8 mg/dL (8.5-10.5); Carbon Dioxide 38 mmol/L (22-29); Chloride 92 mmol/L (98-107); Globulin 3.2 g/dL (1.3-4.6); Glomerular Filtration Rate 220.2 mL/min (90-130); Glucose 142 mg/dL (65-115); Magnesium 2.3 mg/dL (1.7-2.3); Phosphorus 3.8 mg/dL (2.5-4.5); Potassium 4.2 mmol/L (3.5-5.1); Sodium 139 mmol/L (136-145); Total Bilirubin 0.2 mg/dL (0.15-1.2); Total Protein 6.7 g/dL (6.6-8.7)
[2019-09-28] MEDS: fenofibrate 145 mg Tablet PO (08:33)
[2019-09-28] MEDS: aspirin 81 mg EC Tablet PO (08:33)
[2019-09-28] MEDS: roflumilast 500 mcg Tablet PO (08:33)
[2019-09-28] MEDS: doxycycline 100 mg Tablet PO ×2 (08:33→17:56)
[2019-09-28] MEDS: amlodipine 10 mg Tablet PO (08:33)
[2019-09-28] MEDS: FUROsemide 40 mg Tablet PO ×2 (08:33→17:56)
--- NOTE | 2019-09-28 19:00 | PC.NURSE ---
Introduction of staff and report received, aidet.
--- NOTE | 2019-09-28 20:25 | PC.NURSE ---
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 States Dr told him he didn't have to, that since he was on continuous pulse ox, that was all he needed. Dr Mao made aware.
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
[2019-09-28] MEDS: atorvastatin 40 mg Tablet PO (21:20)
[2019-09-28] MEDS: predniSONE 20 mg Tablet 40 MG PO (21:24)
[2019-09-29] VITALS (13 sets, daily range): BP systolic 114–143; BP diastolic 70–82; PULSE 67–104; RESP 16–20; TEMP 36.5–36.7; O2SAT 90–98
[2019-09-29] MEDS: ipratropium-albuterol 3 mL Neb INHALATION ×4 (00:04→12:36)
[2019-09-29] MEDS: enoxaparin 40 mg/0.4 mL Syringe SUBCUT (01:36)
[2019-09-29 06:04] LABS: Basophils % 0.1 %; Hematocrit 46.6 % (42.0-52.0); Hemoglobin 14.9 g/dL (11.7-16.6); Lymphocytes # 0.8 10^3/uL (0.8-4.8); Lymphocytes % 10.2 %; Mean Corpuscular Hemoglobin 27.9 pg (28.0-34.0); Mean Corpuscular Volume 87.1 fL (80-94); Mean Platelet Volume 12.6 fL (7.4-10.4); Monocytes # 0.3 10^3/uL (0.2-0.9); Monocytes % 4.2 %; Neutrophils # 6.7 10^3/uL (1.8-7.7); Neutrophils % 83.8 %; Nucleated Red Blood Cells % 0 %; Platelet Count 154 10^3/cmm (130-400); Red Blood Count 5.35 10^6/uL (4.1-5.3); Red Cell Distribution Width 12.4 % (12.1-15.1); White Blood Count 8.1 10^3/uL (4.0-10.0)
[2019-09-29] MEDS: roflumilast 500 mcg Tablet PO (08:44)
[2019-09-29] MEDS: fenofibrate 145 mg Tablet PO (08:44)
[2019-09-29] MEDS: FUROsemide 40 mg Tablet PO (08:44)
[2019-09-29] MEDS: doxycycline 100 mg Tablet PO (08:45)
[2019-09-29] MEDS: predniSONE 20 mg Tablet 40 MG PO (08:45)
[2019-09-29] MEDS: aspirin 81 mg EC Tablet PO (08:45)
[2019-09-29] MEDS: amlodipine 10 mg Tablet PO (08:45)
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
[2019-09-30 12:01] LABS: Adenovirus Not Detected (Not Detected); Human Metapneumovirus Not Detected (Not Detected); Human Parainflu Virus 1 Not Detected (Not Detected); Human Parainflu Virus 2 Not Detected (Not Detected); Human Parainflu Virus 3 Not Detected (Not Detected); Human Rsv A Not Detected (Not Detected); Influenza A Not Detected (Not Detected); Influenza B Not Detected (Not Detected); Rhinovirus/Enterovirus Not Detected (Not Detected)
== END 2019-09-29 15:44 | disposition home or self-care (01) | DRG 190 ==
LOC: ER 23:41 → ICU 09-26 01:50 → MEDSURG 09-27 15:48
PROVIDERS: Admitting Provider Family Medicine; Emergency Provider Emergency Medicine; Family Provider Nurse Practitioner; PCP Nurse Practitioner; Visit Provider Internal Medicine
DX: J44.1 Chronic obstructive pulmonary disease with (acute) exacerbation (principal); J96.21 Acute and chronic respiratory failure with hypoxia; J96.22 Acute and chronic respiratory failure with hypercapnia; F17.210 Nicotine dependence, cigarettes, uncomplicated; Z99.81 Dependence on supplemental oxygen; E78.5 Hyperlipidemia, unspecified; E66.9 Obesity, unspecified; Z68.36 Body mass index [BMI] 36.0-36.9, adult; I10 Essential (primary) hypertension; R73.9 Hyperglycemia, unspecified; T38.0X5A Adverse effect of glucocorticoids and synthetic analogues, initial encounter; R00.0 Tachycardia, unspecified; Z88.8 Allergy status to other drugs, medicaments and biological substances; Z79.82 Long term (current) use of aspirin; Z79.899 Other long term (current) drug therapy
CPT/HCPCS: 12345; 36415; 36600; 71045; 71260; 80053; 80061; 80307; 81001; 82803; 83036; 83605; 83735; 83880; 84100; 84145; 84443; 84484; 85025; 86403; 87040; 87070; 87205; 87804; 93005; 93306; 94640; 94660; 94762; 96372; 96375; 99283; J0743; J1650; J2920; J2930; J3490; J7030; J7050; J7512; Q9967

== ENCOUNTER → 2019-12-28 10:21 | Outpatient (BNVA) | payer MEDICARE, MEDICAID, SELFPAY | PROVIDERS: Family Provider Nurse Practitioner; PCP Nurse Practitioner; Visit Provider Nurse Practitioner | DX: M79.672 Pain in left foot (principal); J44.9 Chronic obstructive pulmonary disease, unspecified; R73.9 Hyperglycemia, unspecified | CPT/HCPCS: 73630; 80053; 83036 ==

== ENCOUNTER 2020-01-13 12:50 | Outpatient (CLI) | payer MEDICARE, MEDICAID, SELFPAY ==
--- NOTE | 2020-01-13 15:17 | PFTS_ITS ---
Date of Study:01/13/20 Date of Dictation: MECHANICS: Forced vital capacity (FVC) is Reduced. Forced expiratory volume in one second (FEV1) is Reduced. FEV1/FVC is Reduced. FLOW VOLUME LOOP: Reduced flow at all lung volumes with significant scooping. LUNG VOLUMES: Total lung capacity (TLC) is Normal. Residual volume (RV) is Elevated. DIFFUSING CAPACITY FOR CARBON MONOXIDE: Severely reduced. INTERPRETATION: The pulmonary function tests are Consistent with very severe airflow obstruction. Lung volumes are consistent with air trapping. Gas exchange is severely reduced. MTDD
== END 2020-01-13 12:51 | disposition home or self-care (01) ==
LOC: RT 12:54
PROVIDERS: Family Provider Nurse Practitioner; PCP Nurse Practitioner; Visit Provider Internal Medicine Critical Care Medicine
DX: J44.9 Chronic obstructive pulmonary disease, unspecified (principal)
CPT/HCPCS: 94060; 94726; 94729; J7611

== ENCOUNTER → 2020-05-16 14:42 | Outpatient (BNVA) | payer MEDICARE, MEDICAID, SELFPAY | PROVIDERS: Family Provider Nurse Practitioner; PCP Nurse Practitioner; Visit Provider Nurse Practitioner | DX: I11.0 Hypertensive heart disease with heart failure (principal); E78.5 Hyperlipidemia, unspecified; J44.9 Chronic obstructive pulmonary disease, unspecified; I50.9 Heart failure, unspecified | CPT/HCPCS: 80053; 81000; 85025 ==

== ENCOUNTER 2020-05-25 15:19 | Inpatient (IN) | payer MEDICARE, MEDICAID, SELFPAY ==
[2020-05-25] VITALS (18 sets, daily range): BP systolic 108–177; BP diastolic 66–82; PULSE 65–137; RESP 16–30; TEMP 37.2–38.8; O2SAT 86–100; BMI 38.6
--- NOTE | 2020-05-25 15:26 | XR_ITS ---
WS: [id number] Portable AP upright chest, 05/25/2020 Clinical Data: chest pain Comparison: Portable chest, 09/25/2019. Findings: No nodules, masses or effusions are seen. The heart is normal. The pulmonary vascularity is not increased. No pneumonia or pneumothorax is seen. There are basilar interstitial changes probably from chronic lung disease. The diaphragms are flattened. XR/XR chest 1V portable [id number] Impression: Hyperinflation and bibasilar interstitial opacities consistent with chronic obs tructive pulmonary disease.
--- NOTE | 2020-05-25 15:27 | ECG_ITS ---
[facility] Test Date: 2020-05-25 Pat Name: Conrad Ramirez Department: Room: Gender: Male Data Analysis Assistant: : 1960 Requested By: Sabina Gomes Order Number: [id number] Bergman MD: Dirk Perez M.D. Measurements Intervals [place] Rate: 133 P: 79 VA: 181 QRS: 80 QRSD: 93 T: 73 QT: 332 QTc: 494 Interpretive Statements SINUS TACHYCARDIA NONSPECIFIC T-WAVE ABNORMALITY ABNORMAL RHYTHM ECG Compared to ECG 09/26/2019 01:47:14 Atrial abnormality no longer present T-wave abnormality still present Electronically Signed On 05-25-2020 18:33:28 CDT by Dirk Perez M.D. [email or web address]
--- NOTE | 2020-05-25 15:59 | ED_ITS ---
HPI - General Adult General: Chief complaint: Shortness of Breath/Dyspnea Stated complaint: RUNNING A FEVER/ SOB Time Seen by Provider: 05/25/20 15:23 Source: EMS Mode of arrival: EMS Limitations: altered mental status History of Present Illness: HPI narrative: Mr. Ramirez is a 59-year-old male who comes in via EMS with report of altered mental status and fever. Patient is on CPAP and appears lethargic. Family states that he was normal until found by his son this afternoon and the patient appeared weak and lethargic. He also was covered up with a blanket and appeared chilled. EMS got a axillary temperature of 103.4 in route and then recheck this oral and found it to be at 102. Patient has not received any antipyretics up till now. Patient was also noted to be hypoxic and labored. Patient was placed on CPAP but no other medicines have been given. All further information at this time is taken from old charts. Review of Systems General: Reports: ROS unobtainable due to mental status and Other (Pertinent positive review of systems is noted in HPI as best as can be ascertained.) [facility] ED PFSH: Medical History (Updated 05/25/20 @ 18:48 by Ivan Chau MD) CHF (congestive heart failure) Environmental and seasonal allergies Hyperlipidemia Hypertension Severe chronic obstructive pulmonary disease Surgical History History of colonoscopy with polypectomy 2015 Hx of inguinal hernia surgery Family History Brother Diabetes Social History Smoking and tobacco status: current every day smoker cigarettes Packs smoked per day: 1 Years cigarettes smoked: 45 [ Other cigarette details: Hx of 2PPD ] Quit status (tobacco): considering quitting Second hand smoke exposure: Yes Smoking risk assessment/counseling performed?: Yes Alcohol intake: never Desire information about alcohol rehabilitation?: No Counseling given: No Desire information about substance/drug rehabilitation?: No Counseling given: No Adopted: No Caregiver/support person: No Lives independently: Yes Household members: children Housing: House Marital status: Single service: No Current occupational status: disabled History of recent travel: No Current gender identity: Male Physical Exam Const: COMMON NORMALS: alert GENERAL APPEARANCE: in distress (Respiratory) and lethargic ORIENTATION/CONSCIOUSNESS: Yes lethargic HENMT: COMMON NORMALS: normocephalic, atraumatic, external ears normal, EAC's normal and Normal external nose present HEAD & SCALP: normal to inspection, normocephalic and atraumatic FACE & SINUS: normal facial exam and face symmetric NOSE: Normal external nose present and Normal nares present EXTERNAL EAR: Yes external ears normal EXTERNAL AUDITORY CANAL: EAC's normal MOUTH: Normal oral and palatal mucosa present, lip normal and tongue normal Eye: COMMON NORMALS: Equal, round and reactive pupils present and conjunctivae normal GENERAL EYE: appearance normal, both eyes and all related structures ALIGNMENT: Yes alignment normal PERIORBITAL: periorbital findings normal EYELID: eyelids normal CONJUNCTIVA: Yes conjunctivae normal SCLERA: sclerae normal PUPIL: Yes Equal, round and reactive pupils present Neck/C-Spine: COMMON NORMALS: full ROM, no lymphadenopathy, supple, no meningeal signs and no JVD GENERAL: Yes normal visual inspection and Yes trachea midline Chest: COMMONS NORMALS: normal inspection of the chest and normal palpation of entire chest wall Resp: EFFORT & INSPECTION: Yes tachypneic and Yes labored AUSCULTATION: rhonchi, wheezes and diminished lung sounds Cardio: COMMON NORMALS: no JVD, regular rate, regular rhythm, S1 normal heart sound present and S2 normal heart sound present RATE: regular rate RHYTHM: regular rhythm HEART SOUNDS: S1 normal heart sound present, S2 normal heart sound present, no click, no gallops, no murmurs and no rubs GI: COMMON NORMALS: Soft to palpation and No hepatosplenomegaly present PALPATION: Yes Soft to palpation, No Tenderness to palpation present (GI), No Guarding due to palpation present (GI), No Rigid due to palpation, Yes No hepatosplenomegaly present, No Hernia present, No Palpable mass present and No Pulsatile mass present : COMMON NORMALS: Yes no CVA tenderness BLADDER/KIDNEY EXAM: Yes no CVA tenderness Back/Pelvis: COMMON NORMALS: no CVA tenderness, thoracic and lumbar spine normal to inspection, no thoracic nor lumbar tenderness and thoraco-lumbar ROM normal Extremity: COMMON NORMALS: normal to inspection, full ROM, capillary refill normal, no joint enlargement and no calf tenderness Neuro: COMMON NORMALS: CN's II-XII intact bilaterally, moves all extremities, no focal motor deficits and no sensory deficits noted SENSORIUM/ORIENTATION: Yes alert and Yes lethargic MENINGEAL SIGNS: Yes no meningeal signs SPEECH: speech normal Skin: COMMON NORMALS: no rashes or lesions noted, turgor normal, no jaundice, no petechiae and no mottling GENERAL SKIN EXAM: no rashes or lesions noted and turgor normal Course Vital Signs: Vital signs: Vital Signs Temperature 102 F H 05/25/20 15:36 Pulse Rate 96 05/25/20 18:17 Respiratory Rate 24 H 05/25/20 18:17 Blood Pressure 108/74 05/25/20 18:17 Pulse Oximetry 95 05/25/20 18:17 MDM - General Adult MDM Narrative: Medical decision making narrative: 1753 -patient is still in mild distress and is not moving much air. Breathing treatments have not yet been completed. Patient is still dependent on BiPAP to keep his oxygen elevated. I have reviewed the case in full with Dr. Islas who agrees to meet the patient in the ICU. We will send the PTC test for Covid. Continue steroids, breathing treatments and will give empiric antibiotics. Lab Data: Attestation: I reviewed the patient's lab results. Labs: Lab Results 05/25/20 05/25/20 05/25/20 Range/Units 15:46 15:46 15:46 WBC 16.4 H (4.0-10.0) 10^3/ uL RBC 5.47 H (4.1-5.3) 10^6/u L Hgb 15.7 (11.7-16.6) g/dL Hct 49.8 (42.0-52.0) % MCV 91.0 (80-94) fL MCH 28.7 (28.0-34.0) pg MCHC 31.5 (30.0-36.0) g/dL RDW 13.6 (12.1-15.1) % Plt Count 100 L (130-400) 10^3/c mm MPV 13.0 H (7.4-10.4) fL Neut % (Auto) 90.5 % Lymph % (Auto) 3.2 % Callaway % (Auto) 5.2 % Eos % (Auto) 0.0 % Baso % (Auto) 0.2 % Neut # (Auto) 14.83 H (1.8-7.7) 10^3/u L Lymph # (Auto) 0.5 L (0.8-4.8) 10^3/u L Callaway # (Auto) 0.9 (0.2-0.9) 10^3/u L Eos # (Auto) 0.0 (0.0-0.8) 10^3/u L Baso # (Auto) 0.0 (0.0-0.1) 10^3/u L Nucleated RBC % (a uto) 0 % Nucleated RBCs # 0.0 /100WBC PT 13.60 (12.1-14.9) SECO NDS INR 1.01 (0.8-1.2) D-Dimer (0-0.59) ug/mIFE U Specimen Type Sample Site ABG pH (7.35-7.45) ABG pCO2 (35-45) mmHg ABG pO2 (80.0-100.0) mmH g ABG HCO3 (22-26) mmol/L ABG Base Excess (-2.0-2.0) mmol/ L Miguel Angel Test Hematocrit (42-52) % O2 Delivery Device FiO2 % Oven Technician ID Sodium 137 (136-145) mmol/L Potassium 3.5 (3.5-5.1) mmol/L Chloride 93 L (98-107) mmol/L Carbon Dioxide 29 (22-29) mmol/L Anion Gap 18.5 (5-19) BUN 14 (6-20) mg/dL Creatinine 0.5 L (0.7-1.2) mg/dL GFR Calculation 170.2 H (90-130) mL/min Glucose 114 (65-115) mg/dL Calculated Osmolal ity 285 (285-295) mOsm/k g Lactic Acid (0.5-2.2) mmol/L Calcium 9.6 (8.5-10.5) mg/dL Magnesium 1.9 (1.7-2.3) mg/dL Total Bilirubin 0.5 (0.15-1.2) mg/dL AST 15 (0-40) U/L ALT 12 (0-41) U/L Alkaline Phosphata se 56 (40-130) IU/L Creatine Kinase 49 (39-308) U/L Troponin T Baselin e (0-15) ng/L Total Protein 6.7 (6.6-8.7) g/dL Albumin 0.2 L (3.5-5.2) g/dL Globulin 6.5 H (1.3-4.6) g/dL Influenza Type A A g (Negative) Influenza Type B A g (Negative) SARS-CoV-2 Ag (Rap id) (Negative) 05/25/20 05/25/20 05/25/20 Range/Units 15:46 15:46 15:57 WBC (4.0-10.0) 10^3/ uL RBC (4.1-5.3) 10^6/u L Hgb (11.7-16.6) g/dL Hct (42.0-52.0) % MCV (80-94) fL MCH (28.0-34.0) pg MCHC (30.0-36.0) g/dL RDW (12.1-15.1) % Plt Count (130-400) 10^3/c mm MPV (7.4-10.4) fL Neut % (Auto) % Lymph % (Auto) % Callaway % (Auto) % Eos % (Auto) % Baso % (Auto) % Neut # (Auto) (1.8-7.7) 10^3/u L Lymph # (Auto) (0.8-4.8) 10^3/u L Callaway # (Auto) (0.2-0.9) 10^3/u L Eos # (Auto) (0.0-0.8) 10^3/u L Baso # (Auto) (0.0-0.1) 10^3/u L Nucleated RBC % (a uto) % Nucleated RBCs # /100WBC PT (12.1-14.9) SECO NDS INR (0.8-1.2) D-Dimer 0.68 H (0-0.59) ug/mIFE U Specimen Type Sample Site ABG pH (7.35-7.45) ABG pCO2 (35-45) mmHg ABG pO2 (80.0-100.0) mmH g ABG HCO3 (22-26) mmol/L ABG Base Excess (-2.0-2.0) mmol/ L Miguel Angel Test Hematocrit (42-52) % O2 Delivery Device FiO2 % Oven Technician ID Sodium (136-145) mmol/L Potassium (3.5-5.1) mmol/L Chloride (98-107) mmol/L Carbon Dioxide (22-29) mmol/L Anion Gap (5-19) BUN (6-20) mg/dL Creatinine (0.7-1.2) mg/dL GFR Calculation (90-130) mL/min Glucose (65-115) mg/dL Calculated Osmolal ity (285-295) mOsm/k g Lactic Acid 1.7 (0.5-2.2) mmol/L Calcium (8.5-10.5) mg/dL Magnesium (1.7-2.3) mg/dL Total Bilirubin (0.15-1.2) mg/dL AST (0-40) U/L ALT (0-41) U/L Alkaline Phosphata se (40-130) IU/L Creatine Kinase (39-308) U/L Troponin T Baselin e 18 H (0-15) ng/L Total Protein (6.6-8.7) g/dL Albumin (3.5-5.2) g/dL Globulin (1.3-4.6) g/dL Influenza Type A A g (Negative) Influenza Type B A g (Negative) SARS-CoV-2 Ag (Rap id) (Negative) 05/25/20 05/25/20 05/25/20 Range/Units 16:26 16:26 17:26 WBC (4.0-10.0) 10^3/ uL RBC (4.1-5.3) 10^6/u L Hgb (11.7-16.6) g/dL Hct (42.0-52.0) % MCV (80-94) fL MCH (28.0-34.0) pg MCHC (30.0-36.0) g/dL RDW (12.1-15.1) % Plt Count (130-400) 10^3/c mm MPV (7.4-10.4) fL Neut % (Auto) % Lymph % (Auto) % Callaway % (Auto) % Eos % (Auto) % Baso % (Auto) % Neut # (Auto) (1.8-7.7) 10^3/u L Lymph # (Auto) (0.8-4.8) 10^3/u L Callaway # (Auto) (0.2-0.9) 10^3/u L Eos # (Auto) (0.0-0.8) 10^3/u L Baso # (Auto) (0.0-0.1) 10^3/u L Nucleated RBC % (a uto) % Nucleated RBCs # /100WBC PT (12.1-14.9) SECO NDS INR (0.8-1.2) D-Dimer (0-0.59) ug/mIFE U Specimen Type Arterial Sample Site Lr ABG pH 7.44 (7.35-7.45) ABG pCO2 49.0 H (35-45) mmHg ABG pO2 81.0 (80.0-100.0) mmH g ABG HCO3 33.8 H (22-26) mmol/L ABG Base Excess 8.1 H (-2.0-2.0) mmol/ L Miguel Angel Test Pos Hematocrit 48.7 (42-52) % O2 Delivery Device Bipap FiO2 50.0 % Oven Technician ID Cak Sodium (136-145) mmol/L Potassium (3.5-5.1) mmol/L Chloride (98-107) mmol/L Carbon Dioxide (22-29) mmol/L Anion Gap (5-19) BUN (6-20) mg/dL Creatinine (0.7-1.2) mg/dL GFR Calculation (90-130) mL/min Glucose (65-115) mg/dL Calculated Osmolal ity (285-295) mOsm/k g Lactic Acid (0.5-2.2) mmol/L Calcium (8.5-10.5) mg/dL Magnesium (1.7-2.3) mg/dL Total Bilirubin (0.15-1.2) mg/dL AST (0-40) U/L ALT (0-41) U/L Alkaline Phosphata se (40-130) IU/L Creatine Kinase (39-308) U/L Troponin T Baselin e (0-15) ng/L Total Protein (6.6-8.7) g/dL Albumin (3.5-5.2) g/dL Globulin (1.3-4.6) g/dL Influenza Type A A g Negative (Negative) Influenza Type B A g Negative (Negative) SARS-CoV-2 Ag (Rap id) Negative (Negative) Imaging Data^: CXR: Attestation: I personally reviewed and interpreted this imaging study as follows: My impression: Interstitial prominence, suspect viral pneumonitis EKG Data^: EKG 1: Attestation: I personally reviewed and interpreted this EKG as follows: EKG interpretation date: 05/25/20 EKG interpretation time: 16:01 Interpretation: Normal sinus rhythm with a ventricular to 133 beats a minute, no blocks, normal intervals, nonspecific ST and T wave changes. Discharge Plan Discharge Patient Disposition: Admitted As Inpatient Admit Provider: Destinee Mao Clinical Impression: Acute exacerbation of chronic obstructive airways disease Respiratory failure with hypoxia Qualifiers: Chronicity: acute on chronic Qualified Code(s): J96.21 - Acute and chronic respiratory failure with hypoxia Condition: Stable Referrals: Stephani Pitts, AUDITOR-C [Primary Care Provider] - Discharge Date/Time: 05/25/20 19:23 Coding Level of Care Code ED Sanding Line Operator for Chg Fwd Exam Comprehensive
[2020-05-25] MEDS: ondansetron 2 mg/ML SDV 2 mL 4 MG IVP (16:07)
[2020-05-25] MEDS: sodium chloride 0.9% 1,000 ML 999 ML IV (16:07)
[2020-05-25 16:12] LABS: Basophils % 0.2 %; Hematocrit 49.8 % (42.0-52.0); Hemoglobin 15.7 g/dL (11.7-16.6); Lymphocytes # 0.5 10^3/uL (0.8-4.8); Lymphocytes % 3.2 %; Mean Corpuscular HGB Conc 31.5 g/dL (30.0-36.0); Mean Corpuscular Hemoglobin 28.7 pg (28.0-34.0); Monocytes # 0.9 10^3/uL (0.2-0.9); Monocytes % 5.2 %; Neutrophils # 14.83 10^3/uL (1.8-7.7); Neutrophils % 90.5 %; Nucleated Red Blood Cells % 0 %; Platelet Count 100 10^3/cmm (130-400); Red Blood Count 5.47 10^6/uL (4.1-5.3); Red Cell Distribution Width 13.6 % (12.1-15.1); White Blood Count 16.4 10^3/uL (4.0-10.0)
[2020-05-25] MEDS: piperacillin-tazobactam 3.375 GM in sodium chloride 0.9% (plus) 50 ML IV ×2 (16:17→23:32)
[2020-05-25 16:36] LABS: INR 1.01 (0.8-1.2)
[2020-05-25 16:38] LABS: Lactic Sepsis W/Reflex 1.7 mmol/L (0.5-2.2)
[2020-05-25 16:44] LABS: Alanine Aminotransferase 12 U/L (0-41); Albumin Level 0.2 g/dL (3.5-5.2); Alkaline Phosphatase 56 IU/L (40-130); Aspartate Amino Transferase 15 U/L (0-40); Blood Urea Nitrogen 14 mg/dL (6-20); Calcium 9.6 mg/dL (8.5-10.5); Carbon Dioxide 29 mmol/L (22-29); Creatine Phosphokinase 49 U/L (39-308); Globulin 6.5 g/dL (1.3-4.6); Glomerular Filtration Rate 170.2 mL/min (90-130); Glucose 114 mg/dL (65-115); Magnesium 1.9 mg/dL (1.7-2.3); Total Bilirubin 0.5 mg/dL (0.15-1.2); Total Protein 6.7 g/dL (6.6-8.7)
[2020-05-25 16:45] LABS: Troponin(5th) Baseline 18 ng/L (0-15)
[2020-05-25 16:50] LABS: Anion Gap 18.5 (5-19); Chloride 93 mmol/L (98-107); Osmolality Calculated 285 mOsm/kg (285-295); Potassium 3.5 mmol/L (3.5-5.1); Sodium 137 mmol/L (136-145)
[2020-05-25 17:00] LABS: Influenza A by IFA Negative (Negative); Influenza B by IFA Negative (Negative); SARS Covid-2 Antigen Negative (Negative)
--- NOTE | 2020-05-25 17:14 | PC.NURSE ---
Pt sts he is feeling better. Pt now more oriented, vitals improving steadily, pt appears calm and in no acute distress, will continue to monitor closely.
[2020-05-25 17:38] LABS: ABG PH Result 7.44 (7.35-7.45); Arterial Blood Gas Hematocrit 48.7 % (42-52); Base Excess ABG 8.1 mmol/L (-2.0-2.0); Blood Gas Allen Test POS; Blood Gas Operator Identificat CAK; HCO3 ABG 33.8 mmol/L (22-26); Oxygen Device BIPAP
[2020-05-25 17:39] LABS: Blood Gas Sample Site LR; Blood Gas Sample Type ARTERIAL
[2020-05-25] MEDS: ipratropium-albuterol 3 mL Neb 9 ML INHALATION (18:01)
--- NOTE | 2020-05-25 18:34 | P.HP_ITS ---
Providers/Chief Complaint Admitting Physician: Ivan Chau MD Primary Care Provider: Stephani Pitts, OLIVER-Sonu Chief Complaint: RUNNING A FEVER/ SOB History of Present Illness Conrad Ramirez is a 59 year old male with a past medical history of COPD 5 to 6 L oxygen dependent continuously (spirometry in 2014 showed an FEV1 40% of predicted, FVC 64% of predicted, FEV1 over FVC severely reduced at 62%, total lung capacity is 264% consistent with hyperinflation, hypertension, h yperlipidemia, chronic smoker, obesity who presents emergency room due to complaints of shortness of breath. Most of the history taken via phone from his brother. Patient is not able to give me any history because he seems confused and is on BiPAP. As per the brother patient was absolutely fine till 2 days ago and was his baseline breathing status but today morning he was coughing a lot along with sputum production and was getting gradually worsening of his mental status with becoming more and more confused to a point when he was sluggishly responsive at that time EMS was called who found him to have a saturation in high 70s. EMS also found him to have an x-ray temperature of 103.4 Fahrenheit. Patient has also been having chills since today morning. On presentation to the ER patient was hypoxic but not labored and was placed on CPAP. Of note patient was in hospital in September also with similar presentation at that time was found to have influenza pneumonia. His blood work in the ER showed white count 16.4, hemoglobin of 15.7, platelet count of 100, neutrophilia of 14.8, INR of 1, ABG with a pH of 7.44, PCO2 49, PO2 of 81 on 50% FiO2 BiPAP, sodium 137, chloride of 93, creatinine of 0.5, AST/ALT of 15/12, baseline troponin of 18. Review of Systems General: Reports: ROS unobtainable due to mental status Medications/Allergies Home Medications Medication Instructions Recorded Confirmed Last Taken Type levalbuterol HCl 1.25 mg/3 mL 1.25 mg INHALATION QID ml 11/15/19 05/16/20 Unknown History solution for nebulization aspirin 81 mg tablet,delayed 81 mg PO DAILY #30 tab 05/16/20 05/16/20 Unknown Rx release atorvastatin 40 mg tablet 40 mg PO BEDTIME #30 tab 05/16/20 05/16/20 Unknown Rx azelastine-fluticasone 137 mcg-50 1 spray INTRANASAL BID 90 Days #23 05/16/20 05/16/20 Unknown Rx mcg/spray nasal spray gm fenofibrate 160 mg tablet 160 mg PO DAILY #30 tab 05/16/20 05/16/20 Unknown Rx furosemide 40 mg tablet 40 mg PO BID #60 tab 05/16/20 05/16/20 Unknown Rx levalbuterol tartrate 45 2 inh INHALATION Q4H #15 gm 05/16/20 05/16/20 Unknown Rx mcg/actuation aerosol inhaler metoprolol tartrate 25 mg tablet 25 mg PO BID #60 tab 05/16/20 05/16/20 Unknown Rx potassium chloride 10 mEq 10 meq PO BID #60 tab 05/16/20 05/16/20 Unknown Rx tablet,extended release(part/cryst) roflumilast 500 mcg tablet 500 mcg PO DAILY #30 tab 05/16/20 05/16/20 Unknown Rx fluticasone fur. 100 mcg-umeclid 1 inh INHALATION DAILY #60 each 05/17/20 05/20/20 Unknown Rx 62.5 mcg-vilant 25 mcg inhalat.powder Allergies Allergy/AdvReac Type Severity Reaction Status Date / Time celecoxib [From Celebrex] Allergy Unknown Verified 11/15/19 13:25 simvastatin Allergy Unknown Verified 11/15/19 13:25 PFSH Acute PFSH: Medical History (Updated 05/25/20 @ 18:48 by Ivan Chau MD) CHF (congestive heart failure) Environmental and seasonal allergies Hyperlipidemia Hypertension Severe chronic obstructive pulmonary disease Surgical History History of colonoscopy with polypectomy 2015 Hx of inguinal hernia surgery Family History Brother Diabetes Social History Smoking and tobacco status: current every day smoker cigarettes Packs smoked per day: 1 Years cigarettes smoked: 45 [ Other cigarette details: Hx of 2PPD ] Quit status (tobacco): considering quitting Second hand smoke exposure: Yes Smoking risk assessment/counseling performed?: Yes Alcohol intake: never Desire information about alcohol rehabilitation?: No Counseling given: No Desire information about substance/drug rehabilitation?: No Counseling given: No Adopted: No Caregiver/support person: No Lives independently: Yes Household members: children Housing: House Marital status: Single service: No Current occupational status: disabled History of recent travel: No Current gender identity: Male Vitals/I&O/Wt Last Vital Signs Temp 102 F H 05/25/20 15:36 Pulse 96 05/25/20 18:17 Resp 24 H 05/25/20 18:17 BP 108/74 05/25/20 18:17 Pulse Ox 95 05/25/20 18:17 Weight last 48 hrs Weight 129.274 kg Physical Exam Narrative: EXAM NARRATIVE: General: No acute distress, on BiPAP, AO x2, confused HEENT: PERRLA, pupils bilaterally equal and reactive Chest: Bronchial breath sounds all over the lung field, coarse crackles present right more than left, anterior more than posterior, no added sounds, equal good air entry bilaterally CVS: S1-S2 regular, no murmurs, no tachycardia, no gallops, no rubs Abdomen: Soft, nontender, no organomegaly, bowel sounds present, morbidly obese Neuro: No focal deficits, no facial deformity, AO x3, power 5/5 in all limbs Extremities: Bilateral pitting edema 2+ present up to the mid calf, erythema present in the right calf. Data : 05/25/20 15:46 05/25/20 15:46 Micro: Microbiology 05/25/20 15:57 Blood Culture - Preliminary Blood SPECIMEN COLLECTED 05/25/20 15:46 Blood Culture - Preliminary Blood SPECIMEN COLLECTED A&P Assessment and plan (1) Sepsis: Status: Acute (2) Respiratory failure with hypoxia: Status: Acute Qualifiers: Chronicity: acute on chronic Qualified Code(s): J96.21 - Acute and chronic respiratory failure with hypoxia (3) Acute exacerbation of chronic obstructive airways disease: Status: Acute (4) Severe chronic obstructive pulmonary disease: Status: Chronic (5) Hypertension: Status: Chronic Qualifiers: Hypertension type: essential hypertension Qualified Code(s): I10 - Essential (primary) hypertension (6) Hyperlipidemia: Status: Chronic Qualifiers: Hyperlipidemia type: mixed hyperlipidemia Qualified Code(s): E78.2 - Mixed hyperlipidemia Additional A&P Information Sepsis: Criteria met through tachycardia, fever, leukocytosis on presentation. Respiratory failure with hypoxia and hypercapnia: Most likely because of pneumonia causing exacerbation of COPD: Rapid antigen COVID-19 negative on the presentation. Check blood culture, sputum culture, urinalysis, urine culture, bacterial a ntigen, urine Legionella, procalcitonin, proBNP, COVID-19 PCR. Flu negative on admission. Isolation precaution for now. Start patient on vancomycin and Zosyn as patient is critically ill at present. We will also start patient on azithromycin for atypical coverage. We will de- escalate antibiotics as per the culture results. Check D-dimer. Depending on the D-dimer will decide off CTA chest with or without contrast. Keep mean arterial pressure of 65 mmhg. Last echocardiogram from September shows an EF of 60% with grade 1 diastolic dysfunction. At home patient takes Lasix 40 mg p.o. twice daily for now put him on 40 mg IV twice daily. Strict input output charting. Daily weights. We will repeat echocardiogram. Severe COPD: Continue with methylprednisone 80 every 8 hours for now as started in the ER. Advair, Spiriva as patient is on aerosol precautions. Vitamin C, zinc. Oxygen supplementation keeping saturation over 88%. At baseline patient is on 3 to 4 L of oxygen supplementation. Hypertension: Goal blood pressure less than 140/90 millimeters G. Continue home dose of metoprolol. Continue other chronic medications like aspirin, statin, Roflumilast, potassium supplementation. Patient's DPOA will be his son Mr. Sol [phone]. He is not currently picking up the phone tried multiple times. Will call again. Full code as per last note. Famotidine for PUD prophylaxis Cardiac diet. Patient is critically ill for now. Admit to ICU. Attestations Medical Necessity Statement*: Patient will require admission for more than 2 midnights for treatment and evaluation of sepsis, acute hypoxic and hypercapnic respiratory failure because of pneumonia leading to COPD exacerbation. Time Spent in Patient Care: Greater than 35 minutes (>than 50% of time spent in counselling and/or direct pt care on unit) . Coding Level of Care Code Acute Disk Sharpener for [facility] Diagnoses Sepsis A41.9 Respiratory failure with hypoxia J96.21 Chronicity: acute on chronic Acute exacerbation of chronic obstructive airways disease J44.1 Severe chronic obstructive pulmonary disease J44.9 Hypertension I10 Hypertension type: essential hypertension Hyperlipidemia E78.2 Hyperlipidemia type: mixed hyperlipidemia
[2020-05-25 18:58] LABS: D Dimer 0.68 ug/mIFEU (0-0.59)
--- NOTE | 2020-05-25 19:31 | PC.SOCIAL ---
Attempted to see patient for initial assessment in the Emergency Department but he had already been moved to the floor. No triggers known at this time.
[2020-05-25] MEDS: FUROsemide 10 mg/mL SDV 4mL 40 MG IVP (19:44)
[2020-05-25] MEDS: enoxaparin 40 mg/0.4 mL Syringe SUBCUT (19:51)
[2020-05-25] MEDS: famotidine 20 mg/2 mL INJ IVP (19:52)
[2020-05-25 20:03] LABS: Thyroid Stimulating Hormone 1.09 uIU/mL (0.27-4.20)
[2020-05-25] MEDS: ipratropium-albuterol 3 mL Neb INHALATION (20:05)
[2020-05-25] MEDS: budesonide 0.5 mg/2 mL Neb INHALATION (20:05)
--- NOTE | 2020-05-25 20:11 | CTR_ITS ---
PROCEDURE INFORMATION: Exam: CT Angiography Chest With Contrast Exam date and time: 05/25/2020 8:18 PM Age: 59 years old Clinical indication: Abnormal findings; Abnormal diagnostic tests; Elevated d-dimer; Shortness of breath; Additional info: Pna, elevated d dimer, covid rule 0ut TECHNIQUE: Imaging protocol: Computed tomographic angiography of the chest with intravenous contrast. 3D rendering (Not supervised by radiologist): MIP and/or 3D reconstructed images were created by the technologist. Radiation optimization: All CT scans at this facility use at least one of these dose optimization techniques: automated exposure control; mA and/or kV adjustment per patient size (includes targeted exams where dose is matched to clinical indication); or iterative reconstruction. Contrast material: OMNI 350; Contrast volume: 72 ml; Contrast route: INTRAVENOUS (IV); COMPARISON: CT chest w con* [id number] 09/26/2019 9:12 AM RADIATION DOSE METRICS: Total DLP (mGy-cm): 625.36 FINDINGS: Pulmonary arteries: Suboptimal pulmonary arterial contrast enhancement. No grossly visible central pulmonary embolism/pulmonary arterial thrombus. Aorta: The thoracic aorta is nonaneurysmal. No visible intimal flap or dissection. Lungs: Advanced centrilobular emphysema. There is a 4.7 mm pulmonary nodule right upper lobe (series 3, image 19). There are other bilateral very tiny subpleural pulmonary nodules. All of these are well under 3 mm. Minimal dependent atelectasis in lung bases. No visible evidence of acute interstitial or alveolar airspace disease. Pleural space: Unremarkable. No pneumothorax. No pleural effusion. Heart: Unremarkable. No cardiomegaly. No pericardial effusion. Lymph nodes: Calcified mediastinal lymph nodes of antecedent granulomatous disease. No visible active mediastinal or hilar lymphadenopathy. No appreciable significant will change since 09/26/2019. Bones/joints: No visible active or acute osseous pathology. Soft tissues: Unremarkable. CT/CT angio chest PE protcl [id number] IMPRESSION: 1. Suboptimal pulmonary arterial contrast enhancement. No grossly visible central pulmonary embolism/pulmonary arterial thrombus. 2. Advanced centrilobular emphysema. 3. Evidence of antecedent granulomatous disease. 4. There is a 4.7 mm pulmonary nodule right upper lobe (series 3, image 19). For patients at low risk (minimal or absent history of smoking and of other known risk factors), no routine follow-up is indicated. For patients at high risk (history of smoking or of other known risk factors), consider optional CT Chest at 12 months. (Reference: Scott) REFERENCES: Scott Jeffrey et al. Guidelines for Management of Incidental Pulmonary Nodules Detected on CT Images: From the Fleischner Society 2017. Radiology. 2017;284(1):228-243. Radiation Dose CTDIVOL = (mGy): DLP = 625.36 (mGy-cm)
[2020-05-25] MEDS: iohexol 350 mg/mL 100 mL Btl IV (21:19)
[2020-05-25] MEDS: atorvastatin 40 mg Tablet PO (21:43)
[2020-05-25] MEDS: benzonatate 100 mg Capsule PO (21:43)
[2020-05-25] MEDS: acetaminophen 325 mg Tablet 650 MG PO (21:44)
[2020-05-25 22:25] LABS: Troponin 5 6HR 17.39 ng/L (0-15)
[2020-05-25 22:30] LABS: Troponin 5 6HR Delta -0.61 ng/L (0-12)
[2020-05-25 22:44] LABS: Urine Random Chloride 68 mmol/L; Urine Random Sodium 88 mmol/L
[2020-05-25 22:47] LABS: Specific Gravity, Urine 1.005 (1.005-1.030); Urine Appearance Clear (CLEAR); Urine Color Yellow (Yellow); pH Urine 7 (5-7)
[2020-05-25 22:48] LABS: NT Pro B Type Natriuretic Pept 42 pg/mL (0-125); Procalcitonin 0.49 ng/mL (0-0.5)
[2020-05-25 22:48] LABS: Bilirubin Urine Neg (Negative); Blood Urine Neg (Negative); Glucose Urine UA Norm (Normal); Ketones Urine Negative (Negative); Leukocyte Esterase Urine Negative (Negative); Nitrate Urine Negative (Negative); Protein Urine Neg (Negative); Urobilinogen Urine 4 mg/dL (Negative)
[2020-05-25 22:49] LABS: Add Urine Culture? No; Bacteria Urine TRACE /hpf; RBC Urine RARE /hpf (0-2); Squamous Epithelial Cell Urine 0-4 /hpf (0-5); WBC Urine 0-4 /hpf (0-5)
[2020-05-25 22:59] LABS: Iron 20 ug/dL (59-158); Percent Saturation 7.7 % (20-50); Total Iron Binding Capacity 259 mcg/dl; Unsaturated Iron Binding 239 ug/dL (112-347)
[2020-05-25 23:17] LABS: Potassium, Radom Urine < 105 mmol/L
[2020-05-26] VITALS (47 sets, daily range): BP systolic 91–145; BP diastolic 58–83; PULSE 62–108; RESP 9–25; TEMP 36.4–36.6; O2SAT 87–99; BMI 38.5
[2020-05-26 03:49] LABS: Basophils % 0.1 %; Hematocrit 43.6 % (42.0-52.0); Hemoglobin 13.8 g/dL (11.7-16.6); Lymphocytes # 0.4 10^3/uL (0.8-4.8); Lymphocytes % 2.1 %; Mean Corpuscular HGB Conc 31.7 g/dL (30.0-36.0); Mean Corpuscular Hemoglobin 28.3 pg (28.0-34.0); Mean Corpuscular Volume 89.3 fL (80-94); Monocytes # 0.3 10^3/uL (0.2-0.9); Monocytes % 1.4 %; Neutrophils # 17.16 10^3/uL (1.8-7.7); Neutrophils % 95.6 %; Nucleated Red Blood Cells % 0 %; Platelet Count 96 10^3/cmm (130-400); Red Blood Count 4.88 10^6/uL (4.1-5.3); Red Cell Distribution Width 13.6 % (12.1-15.1)
[2020-05-26 04:19] LABS: Alanine Aminotransferase 12 U/L (0-41); Alkaline Phosphatase 59 IU/L (40-130); Anion Gap 11.6 (5-19); Aspartate Amino Transferase 17 U/L (0-40); Blood Urea Nitrogen 16 mg/dL (6-20); Calcium 8.7 mg/dL (8.5-10.5); Carbon Dioxide 34 mmol/L (22-29); Chloride 94 mmol/L (98-107); Globulin 2.7 g/dL (1.3-4.6); Glomerular Filtration Rate 137.9 mL/min (90-130); Glucose 223 mg/dL (65-115); Osmolality Calculated 290 mOsm/kg (285-295); Potassium 3.6 mmol/L (3.5-5.1); Sodium 136 mmol/L (136-145); Total Bilirubin 0.6 mg/dL (0.15-1.2); Total Protein 6.7 g/dL (6.6-8.7)
[2020-05-26 04:24] LABS: Chol HDL Ratio 3.63 mg/dL (1.0-5.00); Cholesterol 167 mg/dL (0-200); HDL Cholesterol 46 mg/dL (60-100); LDL Cholesterol Calculated 103 mg/dL (50-129); Triglycerides 92 mg/dL (0-150); VLDL Cholestrol Calculation 18 mg/dL (0-30)
[2020-05-26 04:26] LABS: Estmated Average Glucose 108; Hemoglobin A1C 5.4 % (4.0-6.0)
--- NOTE | 2020-05-26 06:00 | XR_ITS ---
WS: [id number] Portable AP semiupright chest, 05/26/2020 Clinical Data: covid Comparison: Portable chest, 05/25/2020 Findings: No nodules, masses or effusions are seen. The heart is normal. The pulmonary vascularity is not increased. No pneumonia or pneumothorax is seen. The diaphragms are flattened. Monitor leads are on the chest wall. XR/XR chest 1V portable [id number] Impression: Hyperinflation.
[2020-05-26] MEDS: FUROsemide 10 mg/mL SDV 4mL 40 MG IVP ×2 (06:05→14:50)
[2020-05-26] MEDS: piperacillin-tazobactam 3.375 GM in sodium chloride 0.9% (plus) 50 ML IV ×3 (08:07→23:20)
[2020-05-26] MEDS: metoprolol tartrate 25 mg Tablet PO ×2 (08:08→14:51)
[2020-05-26] MEDS: roflumilast 500 mcg Tablet PO (08:08)
[2020-05-26] MEDS: aspirin 81 mg EC Tablet PO (08:08)
[2020-05-26] MEDS: ascorbic acid 500 mg Tablet PO (08:08)
[2020-05-26] MEDS: acetaminophen 325 mg Tablet 650 MG PO (08:09)
[2020-05-26] MEDS: benzonatate 100 mg Capsule PO ×3 (08:09→21:07)
[2020-05-26] MEDS: azithromycin 500 MG in sodium chloride 0.9% 250 ML 250 MG IV (08:10)
[2020-05-26] MEDS: famotidine 20 mg/2 mL INJ IVP ×2 (08:16→19:33)
[2020-05-26] MEDS: zinc gluconate 50 mg Tablet PO (11:16)
[2020-05-26] MEDS: iron sucrose 200 MG in sodium chloride 0.9% (100 ml) 100 ML 220 MG IV (11:18)
[2020-05-26 11:28] LABS: Procalcitonin 0.69 ng/mL (0-0.5)
--- NOTE | 2020-05-26 11:35 | PC.RESP ---
Smoking Cessation and Pulmonary Rehab information sent to patient.
--- NOTE | 2020-05-26 11:44 | PM.PN ---
Subjective Subjective: Interval history: No acute events overnight. Patient has remained hemodynamically stable. T-max since admission 102 Fahrenheit at 4 PM yesterday 100.6 Fahrenheit at 8 PM yesterday. On examination patient is on 5 L nasal cannula saturating 95%. He is a lot more awake. Lab work, input output noted. Document reviewed notable for 3100 cc since admission. Vitals/I&O/Wt Last Vital Signs Temp 98 F 05/26/20 08:00 Pulse 68 05/26/20 11:13 Resp 18 05/26/20 11:13 BP 127/63 05/26/20 10:00 Pulse Ox 95 05/26/20 11:13 05/25/20 05/26/20 05/26/20 22:59 06:59 14:59 Intake Total 450 / 450 550 / 1000 900 / 900 Output Total 550 / 550 1525 / 2075 1100 / 1100 Balance -100 / -100 -975 / -1075 -200 / -200 Weight last 48 hrs Weight 128.956 kg Weight 129.274 kg Physical Exam Narrative: EXAM NARRATIVE: General: No acute distress, on BiPAP, AO x2, confused HEENT: PERRLA, pupils bilaterally equal and reactive Chest: Bronchial breath sounds all over the lung field, coarse crackles present right more than left, anterior more than posterior, no added sounds, equal good air entry bilaterally CVS: S1-S2 regular, no murmurs, no tachycardia, no gallops, no rubs Abdomen: Soft, nontender, no organomegaly, bowel sounds present, morbidly obese Neuro: No focal deficits, no facial deformity, AO x3, power 5/5 in all limbs Extremities: Bilateral pitting edema 2+ present up to the mid calf, erythema present in the right calf. Data : 05/26/20 03:15 05/26/20 03:15 Micro: Microbiology 05/26/20 00:40 MRSA Culture - Final Nose 05/26/20 04:50 Gram Stain - Final Sputum - Expectorated Sputum 05/25/20 20:55 Legionella Urinary Antigen - Final Urine,Clean Catch 05/25/20 15:57 Blood Culture - Preliminary Blood SPECIMEN COLLECTED 05/25/20 15:46 Blood Culture - Preliminary Blood SPECIMEN COLLECTED A&P Assessment and plan (1) Sepsis: Status: Acute (2) Respiratory failure with hypoxia: Status: Acute Qualifiers: Chronicity: acute on chronic Qualified Code(s): J96.21 - Acute and chronic respiratory failure with hypoxia (3) Acute exacerbation of chronic obstructive airways disease: Status: Acute (4) Severe chronic obstructive pulmonary disease: Status: Chronic (5) Thrombocytopenia: Status: Acute (6) Altered mental status: Status: Acute (7) Hypertension: Status: Chronic Qualifiers: Hypertension type: essential hypertension Qualified Code(s): I10 - Essential (primary) hypertension (8) Hyperlipidemia: Status: Chronic Qualifiers: Hyperlipidemia type: mixed hyperlipidemia Qualified Code(s): E78.2 - Mixed hyperlipidemia Additional A&P Information Sepsis: Criteria met through tachycardia, fever, leukocytosis on presentation. Respiratory failure with hypoxia and hypercapnia: Most likely because of pneumonia causing exacerbation of COPD: He was admitted in September with influenza pneumonia. Rapid antigen COVID-19 negative on the presentation. Urine Legionella, MRSA negative. Flu negative. CTA results appreciated. Ddimer positive, lower limb dopplers negative for DVT COVID-19 PCR results pending. Bacterial antigen, urine culture results pending. Isolation precautions. Recheck procalcitonin. MRSA is negative so we will stop vancomycin. Continue Zosyn azithromycin for now. Will defer antibiotics as per culture results. Keep mean arterial pressure of 65 mmhg. Last echocardiogram from September shows an EF of 60% with grade 1 diastolic dysfunction. Continue Lasix 40 mg IV twice daily for now. Patient is to 1200 cc negative since admission. Start on fluid restriction up to 1500 cc. Strict input output charting. Daily weights. We will repeat echocardiogram. Severe COPD: We will get her prednisone to 40 mg every 8 hours as needed. Advair, Spiriva as patient is on aerosol precautions. Vitamin C, zinc. Oxygen supplementation keeping saturation over 88%. At baseline patient is on 5 L of oxygen supplementation. BiPAP at night. Altered mental status: Most likely secondary to sepsis. Mild hypercapnia on ABG. We will add drug screen and alcohol level to blood work from yesterday. Resolving for now. Hypertension: Goal blood pressure less than 140/90mmhg. Continue home dose of metoprolol. Thrombocytopenia: Most likely because of sepsis. No signs of bleeding at present. We will continue to monitor. Iron panel suggestive of iron deficiency anemia. Start him on IV iron supplementation. Day 08/15 today. Continue other chronic medications like aspirin, statin, Roflumilast, potassium supplementation. Patient's DPOA will be his son Mr. Sol [phone]. Possible to talk to son today. He states he was at his baseline mentation earlier in the morning and did not suddenly started having altered mental status and hallucination along with high-grade fever We will also add drug screen to the urine sample from yesterday. Full code. Famotidine for PUD prophylaxis Cardiac diet. Continue ICU care for now. Attestations Medical Necessity Statement*: Needs further hospitalization for management of sepsis secondary to pneumonia leading to hypoxic respiratory failure along with severe COPD exacerbation. Time Spent in Patient Care: Greater than 35 minutes (>than 50% of time spent in counselling and/or direct pt care on unit). Coding Level of Care Code Acute Social Contact Worker for [facility] Fwd Diagnoses Sepsis A41.9 Respiratory failure with hypoxia J96.21 Chronicity: acute on chronic Acute exacerbation of chronic obstructive airways disease J44.1 Severe chronic obstructive pulmonary disease J44.9 Thrombocytopenia D69.6 Altered mental status R41.82 Hypertension I10 Hypertension type: essential hypertension Hyperlipidemia E78.2 Hyperlipidemia type: mixed hyperlipidemia
[2020-05-26 12:28] LABS: Alcohol Level < 10 mg/dL (0-10)
[2020-05-26 14:34] LABS: Amphetamines Screen Urine Negative (Negative); Barbiturates Screen Urine Negative (Negative); Benzodiazepines Screen Urine Negative (Negative); Cocaine Screen Urine Negative (Negative); Opiate Screen Urine Negative (Negative); PCP Screen Urine Negative (Negative); THC Screen Urine Negative (Negative)
--- NOTE | 2020-05-26 14:37 | PC.NURSE ---
right roberts reddened. back and legs have black and white head cysts prevelent. scrubbed patient from head to the bottom of his feet, refused socks, skin dry, +2 to 3 non pitting edema in ankles and feet. ekg pads do not like to stick to patient. have replaced pads over 4 times today.
--- NOTE | 2020-05-26 14:47 | PC.NURSE ---
desats with minimal activity ie bathing self or standing to change into clean clothes
[2020-05-26] MEDS: enoxaparin 40 mg/0.4 mL Syringe SUBCUT (14:51)
--- NOTE | 2020-05-26 19:26 | USCV_ITS ---
Conrad Ramirez Age: 59 Gender: M : 1960 Exam Date: 05/26/2020 07:17 Ordering Phys: Ivan Chau MD Technologist: Viet Pratt Exam Location: [facility] [place] Indication: r/o dvt PROCEDURES: Venous duplex imaging was performed in bilateral lower extremities. The following venous structures were evaluated: common femoral vein, profunda vein, proximal portion of the greater saphenous vein, superficial femoral vein, and the popliteal vein. In addition, the posterior tibial and peroneal trunk were evaluated. Serial compression, augmentation maneuvers, and spectral Doppler flow evaluation were performed. FINDINGS: Normal 2-D Doppler and augmentation and compressibility throughout the lower extremity venous structures. Additional imaging through the proximal calf veins also reveals no thrombus. Limited evaluation of the greater saphenous vein is patent with no thrombus. CONCLUSIONS No DVT bilateral lower extremities. Dr. Anaid Crain DO (Electronically Signed) Final Date: 26 May 2020 11:36 S
[2020-05-26] MEDS: atorvastatin 40 mg Tablet PO (21:07)
[2020-05-27] VITALS (27 sets, daily range): BP systolic 102–142; BP diastolic 56–90; PULSE 58–88; RESP 15–24; TEMP 36.6–36.9; O2SAT 92–99
[2020-05-27 04:51] LABS: Basophils % 0.1 %; Hematocrit 42.2 % (42.0-52.0); Hemoglobin 12.9 g/dL (11.7-16.6); Lymphocytes # 0.4 10^3/uL (0.8-4.8); Lymphocytes % 2.4 %; Mean Corpuscular HGB Conc 30.6 g/dL (30.0-36.0); Mean Corpuscular Hemoglobin 27.7 pg (28.0-34.0); Mean Corpuscular Volume 90.6 fL (80-94); Mean Platelet Volume 12.5 fL (7.4-10.4); Monocytes # 0.7 10^3/uL (0.2-0.9); Neutrophils # 16.84 10^3/uL (1.8-7.7); Neutrophils % 92.7 %; Nucleated Red Blood Cells % 0 %; Platelet Count 94 10^3/cmm (130-400); Red Blood Count 4.66 10^6/uL (4.1-5.3); Red Cell Distribution Width 13.8 % (12.1-15.1); White Blood Count 18.2 10^3/uL (4.0-10.0)
[2020-05-27 05:16] LABS: Alanine Aminotransferase 13 U/L (0-41); Albumin Level 3.5 g/dL (3.5-5.2); Alkaline Phosphatase 46 IU/L (40-130); Aspartate Amino Transferase 15 U/L (0-40); Blood Urea Nitrogen 17 mg/dL (6-20); Calcium 9.4 mg/dL (8.5-10.5); Carbon Dioxide 34 mmol/L (22-29); Chloride 96 mmol/L (98-107); Glomerular Filtration Rate 170.2 mL/min (90-130); Glucose 185 mg/dL (65-115); Osmolality Calculated 290 mOsm/kg (285-295); Sodium 137 mmol/L (136-145); Total Bilirubin 0.3 mg/dL (0.15-1.2); Total Protein 6.5 g/dL (6.6-8.7)
[2020-05-27] MEDS: FUROsemide 10 mg/mL SDV 4mL 40 MG IVP ×2 (06:12→18:38)
[2020-05-27] MEDS: piperacillin-tazobactam 3.375 GM in sodium chloride 0.9% (plus) 50 ML IV ×2 (07:37→15:50)
[2020-05-27] MEDS: famotidine 20 mg/2 mL INJ IVP ×2 (07:38→18:38)
[2020-05-27] MEDS: roflumilast 500 mcg Tablet PO (08:46)
[2020-05-27] MEDS: metoprolol tartrate 25 mg Tablet PO ×2 (08:46→18:38)
[2020-05-27] MEDS: zinc gluconate 50 mg Tablet PO (08:47)
[2020-05-27] MEDS: aspirin 81 mg EC Tablet PO (08:47)
[2020-05-27] MEDS: azithromycin 500 MG in sodium chloride 0.9% 250 ML 250 MG IV (08:47)
[2020-05-27] MEDS: ascorbic acid 500 mg Tablet PO (08:47)
[2020-05-27] MEDS: benzonatate 100 mg Capsule PO ×3 (08:47→21:39)
[2020-05-27] MEDS: iron sucrose 200 MG in sodium chloride 0.9% (100 ml) 100 ML 220 MG IV (11:11)
--- NOTE | 2020-05-27 14:05 | PM.PN ---
Subjective Subjective: Interval history: No acute events overnight patient has remained hemodynamically stable. Afebrile last 24 hours. He is a lot more awake and alert during my conversation. He is able to have full conversation. Denies any nausea, vomiting, dizziness. On examination saturating 94% on 6 L nasal cannula. COVID-19 PCR results still awaited. Vitals/I&O/Wt Last Vital Signs Temp 98.2 F 05/27/20 09:00 Pulse 80 05/27/20 12:00 Resp 20 H 05/27/20 12:00 BP 102/59 05/27/20 12:00 Pulse Ox 92 05/27/20 12:00 05/26/20 05/27/20 05/27/20 22:59 06:59 14:59 Intake Total 590 / 2120 400 / 2520 1030 / 1030 Output Total 1300 / 2400 400 / 2800 600 / 600 Balance -710 / -280 0 / -280 430 / 430 Weight last 48 hrs Weight 128.185 kg Weight 128.956 kg Weight 129.274 kg Physical Exam Narrative: EXAM NARRATIVE: General: No acute distress, on nasal cannula, AO x3 HEENT: PERRLA, pupils bilaterally equal and reactive Chest: Bronchial breath sounds all over the lung field, coarse crackles present right more than left, anterior more than posterior, no added sounds, equal good air entry bilaterally CVS: S1-S2 regular, no murmurs, no tachycardia, no gallops, no rubs Abdomen: Soft, nontender, no organomegaly, bowel sounds present, morbidly obese Neuro: No focal deficits, no facial deformity, AO x3, power 5/5 in all limbs Extremities: Bilateral pitting edema 2+ present up to the mid calf, erythema present in the right calf. Data : 05/27/20 04:30 05/27/20 04:30 Micro: Microbiology 05/25/20 15:57 Blood Culture - Preliminary Blood NEGATIVE TO DATE 05/25/20 15:46 Blood Culture - Preliminary Blood NEGATIVE TO DATE 05/25/20 20:55 Bacterial Antigens - Final Urine Kidney 05/26/20 00:40 MRSA Culture - Final Nose 05/26/20 04:50 Gram Stain - Final Sputum - Expectorated Sputum A&P Assessment and plan (1) Sepsis: Status: Acute (2) Respiratory failure with hypoxia: Status: Acute Qualifiers: Chronicity: acute on chronic Qualified Code(s): J96.21 - Acute and chronic respiratory failure with hypoxia (3) Acute exacerbation of chronic obstructive airways disease: Status: Acute (4) Severe chronic obstructive pulmonary disease: Status: Chronic (5) Thrombocytopenia: Status: Acute (6) Altered mental status: Status: Acute (7) Hypertension: Status: Chronic Qualifiers: Hypertension type: essential hypertension Qualified Code(s): I10 - Essential (primary) hypertension (8) Hyperlipidemia: Status: Chronic Qualifiers: Hyperlipidemia type: mixed hyperlipidemia Qualified Code(s): E78.2 - Mixed hyperlipidemia Additional A&P Information Sepsis: Criteria met through tachycardia, fever, leukocytosis on presentation. Respiratory failure with hypoxia and hypercapnia: Most likely because of pneumonia causing exacerbation of COPD: He was admitted in September with influenza pneumonia and was intubated at that time.. Rapid antigen COVID-19 negative on the presentation. Urine Legionella, bacterial antigen, MRSA negative. Flu negative. CTA results appreciated. Ddimer positive, lower limb dopplers negative for DVT COVID-19 PCR results pending. Isolation precautions. Continue with Zosyn for now. Change azithromycin to oral. Will finish 3-day course tomorrow. We will change antibiotics as per the culture results. Keep mean arterial pressure of 65 mmhg. Last echocardiogram from September shows an EF of 60% with grade 1 diastolic dysfunction. Continue Lasix 40 mg IV twice daily for now. Patient is to 1000 cc negative since admission. Fluid restriction up to 1500 cc. Strict input output charting. Daily weights. We will repeat echocardiogram. Severe COPD: Wean methylprednisolone to 40 mg IV daily for now. If patient continues to do well we will switch over to oral tomorrow. Advair, Spiriva as patient is on aerosol precautions. Vitamin C, zinc. Oxygen supplementation keeping saturation over 88%. At baseline patient is on 5 L of oxygen supplementation. BiPAP at night. Altered mental status: Resolved. Most likely secondary to sepsis. Mild hypercapnia on ABG. We will add drug screen and alcohol level to blood work from yesterday. Hypertension: Goal blood pressure less than 140/90mmhg. Continue home dose of metoprolol. Thrombocytopenia: Most likely because of sepsis. No signs of bleeding at present. We will continue to monitor. Iron panel suggestive of iron deficiency anemia. IV iron supplementation. Day 2/5. Continue other chronic medications like aspirin, statin, Roflumilast, potassium supplementation. Patient's DPOA will be his son Mr. Sol [phone]. Possible to talk to son today. He states he was at his baseline mentation earlier in the morning and did not suddenly started having altered mental status and hallucination along with high-grade fever We will also add drug screen to the urine sample from yesterday. Full code. Famotidine for PUD prophylaxis Cardiac diet. Continue ICU care for now. If patient continues to do well will transfer him to floors. Attestations Medical Necessity Statement*: Needs further hospitalization for management of acute hypoxic respiratory failure because of COPD exacerbation and pneumonia/sepsis. Time Spent in Patient Care: Greater than 35 minutes (>than 50% of time spent in counselling and/or direct pt care on unit). Coding Level of Care Code Acute Neuropsychology Director for [facility] Fwd Diagnoses Sepsis A41.9 Respiratory failure with hypoxia J96.21 Chronicity: acute on chronic Acute exacerbation of chronic obstructive airways disease J44.1 Severe chronic obstructive pulmonary disease J44.9 Thrombocytopenia D69.6 Altered mental status R41.82 Hypertension I10 Hypertension type: essential hypertension Hyperlipidemia E78.2 Hyperlipidemia type: mixed hyperlipidemia
[2020-05-27] MEDS: enoxaparin 40 mg/0.4 mL Syringe SUBCUT (18:38)
[2020-05-27] MEDS: atorvastatin 40 mg Tablet PO (21:39)
[2020-05-27 23:43] LABS: Quest SARS-CoV-2 RNA NOT DETECTED (NOT DETECTED)
[2020-05-28] VITALS (21 sets, daily range): BP systolic 90–170; BP diastolic 50–103; PULSE 56–93; RESP 12–20; TEMP 36.3–37; O2SAT 86–99
[2020-05-28] MEDS: piperacillin-tazobactam 3.375 GM in sodium chloride 0.9% (plus) 50 ML IV ×4 (00:16→23:37)
--- NOTE | 2020-05-28 06:00 | XRR_ITS ---
PROCEDURE INFORMATION: Exam: XR Chest, 1 View Exam date and time: 05/28/2020 6:45 AM Age: 59 years old Clinical indication: Condition or disease; Lung condition and disease; Other: Covid TECHNIQUE: Imaging protocol: XR of the chest Views: 1 view. COMPARISON: CR XR chest 1V portable [id number] 05/26/2020 4:27 AM FINDINGS: Lungs: No focal peripheral lung consolidation, air bronchogram formation, or silhouette sign. Prior pulmonary granulomatous disease. Pleural space: No pleural effusion or pneumothorax. Heart/Mediastinum: The cardiac silhouette is not enlarged. Bones/joints: No acute osseous abnormality. Soft tissues: There is a left epicardial fat pad. XR/XR chest 1V portable [id number] IMPRESSION: No acute abnormality. Noncontrast CT CHEST would be more sensitive in detecting mild changes from COVID-19 pneumonia.
[2020-05-28] MEDS: famotidine 20 mg/2 mL INJ IVP ×2 (06:41→18:02)
[2020-05-28] MEDS: FUROsemide 10 mg/mL SDV 4mL 40 MG IVP (06:41)
[2020-05-28] MEDS: ascorbic acid 500 mg Tablet PO (08:01)
[2020-05-28] MEDS: zinc gluconate 50 mg Tablet PO (08:01)
[2020-05-28] MEDS: aspirin 81 mg EC Tablet PO (08:01)
[2020-05-28] MEDS: nicotine 14 mg Patch 1 PATCH TRANSDERMA (08:01)
[2020-05-28] MEDS: roflumilast 500 mcg Tablet PO (08:01)
[2020-05-28] MEDS: benzonatate 100 mg Capsule PO ×3 (08:01→20:54)
[2020-05-28] MEDS: metoprolol tartrate 25 mg Tablet PO ×2 (08:01→18:02)
[2020-05-28 09:39] LABS: Basophils % 0.1 %; Eosinophils % 0.1 %; Hematocrit 44.8 % (42.0-52.0); Hemoglobin 13.9 g/dL (11.7-16.6); Lymphocytes # 1.1 10^3/uL (0.8-4.8); Lymphocytes % 8.1 %; Mean Corpuscular Hemoglobin 28.1 pg (28.0-34.0); Mean Corpuscular Volume 90.5 fL (80-94); Mean Platelet Volume 12.9 fL (7.4-10.4); Monocytes # 0.6 10^3/uL (0.2-0.9); Monocytes % 4.8 %; Neutrophils # 11.53 10^3/uL (1.8-7.7); Neutrophils % 86.4 %; Nucleated Red Blood Cells % 0 %; Platelet Count 112 10^3/cmm (130-400); Red Blood Count 4.95 10^6/uL (4.1-5.3); Red Cell Distribution Width 13.8 % (12.1-15.1); White Blood Count 13.3 10^3/uL (4.0-10.0)
[2020-05-28 10:21] LABS: Procalcitonin 0.27 ng/mL (0-0.5)
[2020-05-28 10:32] LABS: Alanine Aminotransferase 15 U/L (0-41); Albumin Level 3.8 g/dL (3.5-5.2); Alkaline Phosphatase 47 IU/L (40-130); Anion Gap 12.1 (5-19); Aspartate Amino Transferase 14 U/L (0-40); Blood Urea Nitrogen 17 mg/dL (6-20); Carbon Dioxide 35 mmol/L (22-29); Chloride 94 mmol/L (98-107); Glomerular Filtration Rate 220.2 mL/min (90-130); Glucose 140 mg/dL (65-115); Osmolality Calculated 290 mOsm/kg (285-295); Potassium 3.1 mmol/L (3.5-5.1); Sodium 138 mmol/L (136-145); Total Bilirubin 0.3 mg/dL (0.15-1.2); Total Protein 6.8 g/dL (6.6-8.7)
--- NOTE | 2020-05-28 12:07 | P.PN_ITS ---
Subjective Subjective: Interval history: Documents overnight. Patient is doing a lot better. Has remained hemodynamically stable and afebrile. Today morning on examination is completely awake alert and able to have complete conversation with me. COVID-19 results came back negative today. He has had 4.5 L of urine output since today morning. Currently on examination saturating well on 6 L nasal cannula oxygen supplementation. At baseline he requires 5 L. Vitals/I&O/Wt Last Vital Signs Temp 97.8 F 05/28/20 08:00 Pulse 67 05/28/20 08:09 Resp 18 05/28/20 08:08 BP 118/79 05/28/20 08:00 Pulse Ox 95 05/28/20 08:08 05/27/20 05/28/20 05/28/20 22:59 06:59 14:59 Intake Total 1050 / 2130 50 / 2180 600 / 600 Output Total 3000 / 3600 2800 / 6400 900 / 900 Balance -1950 / -1470 -2750 / -4220 -300 / -300 Weight last 48 hrs Weight 129.092 kg Weight 128.185 kg Physical Exam Narrative: EXAM NARRATIVE: General: No acute distress, on nasal cannula, AO x3 HEENT: PERRLA, pupils bilaterally equal and reactive Chest: Bronchial breath sounds all over the lung field, coarse crackles present right more than left, anterior more than posterior, no added sounds, equal good air entry bilaterally CVS: S1-S2 regular, no murmurs, no tachycardia, no gallops, no rubs Abdomen: Soft, nontender, no organomegaly, bowel sounds present, morbidly obese Neuro: No focal deficits, no facial deformity, AO x3, power 5/5 in all limbs Extremities: Bilateral pitting edema 2+ present up to the mid calf, erythema present in the right calf. Data : 05/28/20 09:32 05/28/20 09:32 Micro: Microbiology 05/26/20 04:50 Gram Stain - Final Sputum - Expectorated Sputum Sputum Culture - Preliminary A&P Assessment and plan (1) Sepsis: Status: Acute (2) Respiratory failure with hypoxia: Status: Acute Qualifiers: Chronicity: acute on chronic Qualified Code(s): J96.21 - Acute and chronic respiratory failure with hypoxia (3) Acute exacerbation of chronic obstructive airways disease: Status: Acute (4) Severe chronic obstructive pulmonary disease: Status: Chronic (5) Thrombocytopenia: Status: Acute (6) Altered mental status: Status: Acute (7) Hypertension: Status: Chronic Qualifiers: Hypertension type: essential hypertension Qualified Code(s): I10 - Essential (primary) hypertension (8) Hyperlipidemia: Status: Chronic Qualifiers: Hyperlipidemia type: mixed hyperlipidemia Qualified Code(s): E78.2 - Mixed hyperlipidemia Additional A&P Information Sepsis: Criteria met through tachycardia, fever, leukocytosis on presentation. Respiratory failure with hypoxia and hypercapnia: Most likely because of pneumonia causing exacerbation of COPD: He was admitted in September with influenza pneumonia and was intubated at that time.. COVID-19 ruled out. Urine Legionella, bacterial antigen, MRSA negative. Flu negative. CTA results appreciated. Ddimer positive, lower limb dopplers negative for DVT Remove isolation precautions. Continue with Zosyn for now. MRSA negative, urine Legionella, bacterial antigen negative. Sputum culture growing strep pneumonia. We will continue to monitor culture results and de-escalate antibiotics as per the sensitivities. Keep mean arterial pressure of 65 mmhg. Last echocardiogram from September shows an EF of 60% with grade 1 diastolic d ysfunction. Continue Lasix 40 mg IV twice daily for now. Switch to 60 mg oral twice daily from tomorrow. Patient is to 6 L negative since admission. Fluid restriction up to 1500 cc. Strict input output charting. Daily weights. Severe COPD: Switch to oral prednisone 40 mg daily. Most likely patient will require 5 days of prednisone and then can stop. Advair, Spiriva as patient is on aerosol precautions. Vitamin C, zinc. Oxygen supplementation keeping saturation over 88%. At baseline patient is on 5 L of oxygen supplementation. BiPAP at night. Altered mental status: Resolved. Most likely secondary to sepsis. Mild hypercapnia on ABG. We will add drug screen and alcohol level to blood work from yesterday. Hypertension: Goal blood pressure less than 140/90mmhg. Continue home dose of metoprolol. Thrombocytopenia: Most likely because of sepsis. Stable. No signs of bleeding at present. We will continue to monitor. Iron panel suggestive of iron deficiency anemia. IV iron supplementation. Day 3/5. Continue other chronic medications like aspirin, statin, Roflumilast, potassium supplementation. Patient's DPOA will be his son Mr. Sol [phone]. Possible to talk to son today. He states he was at his baseline mentation earlier in the morning and did not suddenly started having altered mental status and hallucination along with high-grade fever We will also add drug screen to the urine sample from yesterday. Full code. Famotidine for PUD prophylaxis Cardiac diet. Transfer to floor today. Attestations Medical Necessity Statement*: Patient requires further hospitalization for management of sepsis due to strep pneumonia along with severe COPD causing hypoxic respiratory failure. Time Spent in Patient Care: Greater than 35 minutes (>than 50% of time spent in counselling and/or direct pt care on unit) . Coding Level of Care Code Acute Tack Coverer for [facility] Fwd Diagnoses Sepsis A41.9 Respiratory failure with hypoxia J96.21 Chronicity: acute on chronic Acute exacerbation of chronic obstructive airways disease J44.1 Severe chronic obstructive pulmonary disease J44.9 Thrombocytopenia D69.6 Altered mental status R41.82 Hypertension I10 Hypertension type: essential hypertension Hyperlipidemia E78.2 Hyperlipidemia type: mixed hyperlipidemia
[2020-05-28] MEDS: iron sucrose 200 MG in sodium chloride 0.9% (100 ml) 100 ML 220 MG IV (12:44)
--- NOTE | 2020-05-28 13:32 | PC.NURSE ---
Report called to [facility] will transfer patient via wheelchair.
[2020-05-28] MEDS: ipratropium-albuterol 3 mL Neb INHALATION ×2 (13:53→20:15)
--- NOTE | 2020-05-28 15:11 | DCPLANNER ---
Pg 2 of IM updated and reviewed with pt. No questions, copy provided.
[2020-05-28] MEDS: enoxaparin 40 mg/0.4 mL Syringe SUBCUT (18:01)
--- NOTE | 2020-05-28 18:29 | PC.NURSE ---
Pt was transferred from ICU today to floor. desk monitor hooked up. Pt states he is in no pain and feeling better. Pt has had no fever. Fluid restrict sign up.
[2020-05-28] MEDS: budesonide 0.5 mg/2 mL Neb INHALATION (20:15)
[2020-05-28] MEDS: atorvastatin 40 mg Tablet PO (20:54)
[2020-05-29] VITALS (14 sets, daily range): BP systolic 99–137; BP diastolic 56–85; PULSE 64–87; RESP 17–22; TEMP 36.2–36.8; O2SAT 95–99
[2020-05-29] MEDS: ipratropium-albuterol 3 mL Neb INHALATION ×4 (02:26→20:00)
--- NOTE | 2020-05-29 05:12 | PC.NURSE ---
SHIFT SUMMARY No c/o tonight. Says still some SOB with exertion but is much better. Occ prod cough. O2 at 5l per NC. Receiving IV antibiotics. Slept some then sat on side of bed quite a bit second part of night. Has remained afebrile
[2020-05-29 05:48] LABS: Basophils % 0.1 %; Eosinophils % 0.2 %; Hematocrit 40.3 % (42.0-52.0); Hemoglobin 12.5 g/dL (11.7-16.6); Lymphocytes # 1.3 10^3/uL (0.8-4.8); Lymphocytes % 14.5 %; Mean Corpuscular Hemoglobin 28.4 pg (28.0-34.0); Mean Corpuscular Volume 91.6 fL (80-94); Mean Platelet Volume 12.4 fL (7.4-10.4); Monocytes # 0.8 10^3/uL (0.2-0.9); Monocytes % 9.2 %; Neutrophils # 6.51 10^3/uL (1.8-7.7); Neutrophils % 75.1 %; Nucleated Red Blood Cells % 0 %; Platelet Count 99 10^3/cmm (130-400); Red Cell Distribution Width 13.7 % (12.1-15.1); White Blood Count 8.7 10^3/uL (4.0-10.0)
[2020-05-29 06:17] LABS: Alanine Aminotransferase 14 U/L (0-41); Albumin Level 3.3 g/dL (3.5-5.2); Alkaline Phosphatase 40 IU/L (40-130); Anion Gap 11.2 (5-19); Aspartate Amino Transferase 12 U/L (0-40); Blood Urea Nitrogen 17 mg/dL (6-20); Calcium 9.1 mg/dL (8.5-10.5); Carbon Dioxide 37 mmol/L (22-29); Chloride 97 mmol/L (98-107); Globulin 2.5 g/dL (1.3-4.6); Glomerular Filtration Rate 137.9 mL/min (90-130); Glucose 104 mg/dL (65-115); Osmolality Calculated 296 mOsm/kg (285-295); Potassium 3.2 mmol/L (3.5-5.1); Sodium 142 mmol/L (136-145); Total Bilirubin 0.3 mg/dL (0.15-1.2); Total Protein 5.8 g/dL (6.6-8.7)
[2020-05-29] MEDS: ascorbic acid 500 mg Tablet PO (08:08)
[2020-05-29] MEDS: nicotine 14 mg Patch 1 PATCH TRANSDERMA (08:08)
[2020-05-29] MEDS: piperacillin-tazobactam 3.375 GM in sodium chloride 0.9% (plus) 50 ML IV ×3 (08:08→23:57)
[2020-05-29] MEDS: roflumilast 500 mcg Tablet PO (08:08)
[2020-05-29] MEDS: FUROsemide 40 mg Tablet 60 MG PO ×2 (08:09→15:05)
[2020-05-29] MEDS: benzonatate 100 mg Capsule PO ×3 (08:09→21:00)
[2020-05-29] MEDS: famotidine 20 mg/2 mL INJ IVP (08:09)
[2020-05-29] MEDS: zinc gluconate 50 mg Tablet PO (08:09)
[2020-05-29] MEDS: aspirin 81 mg EC Tablet PO (08:09)
[2020-05-29] MEDS: metoprolol tartrate 25 mg Tablet PO ×2 (08:09→17:14)
[2020-05-29] MEDS: predniSONE 20 mg Tablet 40 MG PO (08:09)
[2020-05-29] MEDS: budesonide 0.5 mg/2 mL Neb INHALATION ×2 (08:48→20:01)
--- NOTE | 2020-05-29 09:24 | USCV_ITS ---
Conrad Ramirez Age: 59 Gender: M : 1960 Exam Date: 05/29/2020 09:39 Ordering Phys: Harry Fair MD Technologist: Viet Pratt [place] [facility] [place]ication: RT LEG PAIN AND SWELLING HISTORY: Erythema. PROCEDURES: Venous duplex imaging was performed in only the right lower extremity. The following venous structures were evaluated: common femoral vein, profunda vein, proximal portion of the greater saphenous vein, superficial femoral vein, and the popliteal vein. In addition, the posterior tibial and peroneal trunk were evaluated. On the right side, the common femoral, superficial femoral, profunda femoral, popliteal, posterior tibial, greater saphenous veins and the peroneal trunk were identified and interrogated in the standard fashion. These veins were found to be easily compressible with spontaneous blood flow. No evidence of insufficiency or thrombus noted. FINDINGS: Normal 2-D Doppler and augmentation and compressibility throughout the lower extremity venous structures. Additional imaging through the proximal calf veins also reveals no thrombus. Limited evaluation of the greater saphenous vein is patent with no thrombus.. CONCLUSIONS No evidence of right lower extremity DVT. A few prominent inguinal lymph nodes likely reactive Phuc Quinonez MD (Electronically Signed) Final Date: 29 May 2020 13:43 S
[2020-05-29] MEDS: potassium chloride ER 10 mEq Tablet 40 MEQ PO (10:12)
--- NOTE | 2020-05-29 11:06 | PM.PN ---
Subjective Subjective: Interval history: This morning patient was examined, he sitting up to the side of the bed, states that his breathing has significantly improved, no fevers overnight, no cough, still ambulating with some shortness of breath, is on 5 L, however this morning he is complaining of significant left lower extremity swelling, pain, erythema, tenderness, warmth. States that this has happened before, when he popped a a couple of blisters on his left lower extremity, and he developed a cellulitis. Tells me that this redness and warmth has suddenly evolved over the last few hours, no fevers, chills. Vitals/I&O/Wt Last Vital Signs Temp 97.6 F 05/29/20 07:50 Pulse 76 05/29/20 08:59 Resp 18 05/29/20 08:50 BP 134/70 05/29/20 07:50 Pulse Ox 98 05/29/20 08:50 05/28/20 05/29/20 05/29/20 22:59 06:59 14:59 Intake Total 410 / 2020 170 / 2190 350 / 350 Output Total 550 / 2760 325 / 3085 Balance -140 / -740 -155 / -895 350 / 350 Weight last 48 hrs Weight 129.274 kg Weight 129.092 kg Physical Exam Const: COMMON NORMALS: no acute distress and patient oriented x3 HENMT: COMMON NORMALS: normocephalic HEAD & SCALP: normocephalic Neck/C-Spine: COMMON NORMALS: no JVD Resp: COMMON NORMALS: normal respiratory effort, No retractions, No use of accessory muscles and clear to auscultation bilaterally AUSCULTATION: clear to auscultation bilaterally Cardio: COMMON NORMALS: no JVD, regular rate, regular rhythm, S1 normal heart sound present and S2 normal heart sound present RATE: regular rate RHYTHM: regular rhythm HEART SOUNDS: S1 normal heart sound present and S2 normal heart sound present GI: COMMON NORMALS: Normal to inspection, nondistended, normoactive bowel sounds present, Soft to palpation, non-tender, No hepatosplenomegaly present, no masses and no bruits PALPATION: Yes Soft to palpation and Yes No hepatosplenomegaly present Extremity: NARRATIVE EXTREMITY EXAM: Left lower extremity swelling, erythema, tenderness, warmth, extending from the mid tibia, down to the hindfoot, significant calf swelling Neuro: COMMON NORMALS: patient oriented x3 Psych: COMMON NORMALS: mental status grossly normal Data : 05/29/20 05:37 05/29/20 05:37 Micro: Microbiology 05/26/20 04:50 Gram Stain - Final Sputum - Expectorated Sputum Sputum Culture - Preliminary Streptococcus pneumoniae prsp A&P Assessment and plan (1) Sepsis: Status: Acute (2) Respiratory failure with hypoxia: Status: Acute Qualifiers: Chronicity: acute on chronic Qualified Code(s): J96.21 - Acute and chronic respiratory failure with hypoxia (3) Acute exacerbation of chronic obstructive airways disease: Status: Acute (4) Severe chronic obstructive pulmonary disease: Status: Chronic (5) Thrombocytopenia: Status: Acute (6) Altered mental status: Status: Acute (7) Hypertension: Status: Chronic Qualifiers: Hypertension type: essential hypertension Qualified Code(s): I10 - Essential (primary) hypertension (8) Hyperlipidemia: Status: Chronic Qualifiers: Hyperlipidemia type: mixed hyperlipidemia Qualified Code(s): E78.2 - Mixed hyperlipidemia Additional A&P Information Sepsis: Resolved, secondary to strep pneumonia -criteria met through tachycardia, fever, leukocytosis on presentation. -Respiratory failure with hypoxia and hypercapnia: Most likely because of pneumonia causing exacerbation of COPD: He was admitted in -----September with influenza pneumonia and was intubated at that time.. -COVID-19 ruled out. Urine Legionella, bacterial antigen, MRSA negative. Flu negative. lower limb dopplers negative for DVT - Continue with Zosyn for now. -Sputum culture growing strep pneumonia. We will continue to monitor culture results and de-escalate antibiotics as per the sensitivities. -Currently on 5 L nasal cannula, still short of breath with minimal exertion Last echocardiogram from September shows an EF of 60% with grade 1 diastolic dysfunction. On 60 mg Lasix twice daily, patient is to 6 L negative since admission. Fluid restriction up to 1500 cc. Strict input output charting. Daily weights. Severe COPD: Continue 40 mg of oral prednisone daily Advair, Spiriva as patient is on aerosol precautions. Vitamin C, zinc. Oxygen supplementation keeping saturation over 88%. At baseline patient is on 5 L of oxygen supplementation. BiPAP at night. Altered mental status: Resolved. Most likely secondary to sepsis. Mild hypercapnia on ABG. Hypertension: Goal blood pressure less than 140/90mmhg. Continue home dose of metoprolol. Thrombocytopenia: Most likely because of sepsis. Stable. No signs of bleeding at present. We will continue to monitor. Iron panel suggestive of iron deficiency anemia. IV iron supplementation. Day 3/5. Left lower extremity swelling, erythema, tenderness, warmth: Clinically feels a lot like a DVT, will order an ultrasound to rule out DVT, had an ultrasound of bilateral extremity a few days ago which was negative for DVT, has been on DVT prophylaxis since admission. If ultrasound is negative, will add vancomycin for c possible cellulitis, Continue other chronic medications like aspirin, statin, Roflumilast, potassium supplementation. Patient's DPOA will be his son Mr. Sol [phone]. Possible to talk to son today. He states he was at his baseline mentation earlier in the morning and did not suddenly started having altered mental status and hallucination along with high-grade fever Full code. Famotidine for PUD prophylaxis Lovenox for DVT prophylaxis Cardiac diet. Attestations Medical Necessity Statement*: Patient requires hospitalization for respiratory failure secondary to pneumonia, now left lower extremity swelling Coding Level of Care Code Acute Legal Assistant for [facility] Fwd Diagnoses Sepsis A41.9 Respiratory failure with hypoxia J96.21 Chronicity: acute on chronic Acute exacerbation of chronic obstructive airways disease J44.1 Severe chronic obstructive pulmonary disease J44.9 Thrombocytopenia D69.6 Altered mental status R41.82 Hypertension I10 Hypertension type: essential hypertension Hyperlipidemia E78.2 Hyperlipidemia type: mixed hyperlipidemia
[2020-05-29] MEDS: iron sucrose 200 MG in sodium chloride 0.9% (100 ml) 100 ML 220 MG IV (11:27)
[2020-05-29 12:27] LABS: Procalcitonin 0.16 ng/mL (0-0.5)
[2020-05-29 12:38] LABS: C Reactive Protein 19.4 mg/L (0.0-4.9)
[2020-05-29 13:12] LABS: Erythrocyte Sedimentation Rate 17 mm/hr (0-10)
--- NOTE | 2020-05-29 15:09 | XRR_ITS ---
PROCEDURE INFORMATION: Exam: XR Right Tibia and Fibula Exam date and time: 05/29/2020 3:30 PM Age: 59 years old Clinical indication: Pain; Swelling, leg or foot; Lower leg; Left; Additional info: Right leg swelling TECHNIQUE: Imaging protocol: XR Right tibia and fibula. Views: 2 views. COMPARISON: No relevant prior studies available. FINDINGS: Bones/joints: No fracture or other acute osseous abnormality. Soft tissues: Soft tissue edema noted. Vasculature: Round calcifications consistent with phleboliths are identified. XR/XR tibia fibula RT 2V [id number] IMPRESSION: 1. Soft tissue edema noted. 2. Round calcifications consistent with phleboliths are identified. 3. No acute osseous abnormality demonstrated.
--- NOTE | 2020-05-29 18:37 | PC.NURSE ---
END OF SHIFT SUMMARY pt has had an uneventful day. IV in the lower area of the forearm was tender to pt and positional. restarted IV higher up on the forearm and is patent and flushing well. pt able to take morning and evening PO meds well. pt is very pleasant and A/Ox4. pt able to move to BSC with SBA. pt currently sitting on the side of the bed eating dinner, watching TV, with call light within reach.
[2020-05-29] MEDS: famotidine 20 mg Tablet PO (19:22)
[2020-05-29] MEDS: enoxaparin 40 mg/0.4 mL Syringe SUBCUT (19:22)
[2020-05-29] MEDS: atorvastatin 40 mg Tablet PO (21:00)
[2020-05-30] VITALS (12 sets, daily range): BP systolic 105–143; BP diastolic 53–77; PULSE 64–82; RESP 16–19; TEMP 36.5–36.8; O2SAT 5–99
[2020-05-30] MEDS: ipratropium-albuterol 3 mL Neb INHALATION ×4 (02:52→20:06)
[2020-05-30 05:26] LABS: Alanine Aminotransferase 15 U/L (0-41); Albumin Level 3.4 g/dL (3.5-5.2); Alkaline Phosphatase 46 IU/L (40-130); Anion Gap 11.2 (5-19); Aspartate Amino Transferase 13 U/L (0-40); Blood Urea Nitrogen 14 mg/dL (6-20); Calcium 8.9 mg/dL (8.5-10.5); Carbon Dioxide 37 mmol/L (22-29); Chloride 96 mmol/L (98-107); Globulin 2.6 g/dL (1.3-4.6); Glomerular Filtration Rate 137.9 mL/min (90-130); Glucose 97 mg/dL (65-115); Osmolality Calculated 292 mOsm/kg (285-295); Potassium 3.2 mmol/L (3.5-5.1); Sodium 141 mmol/L (136-145); Total Bilirubin 0.4 mg/dL (0.15-1.2)
--- NOTE | 2020-05-30 06:00 | XRR_ITS ---
PROCEDURE INFORMATION: Exam: XR Chest, 1 View Exam date and time: 05/30/2020 6:58 AM Age: 59 years old Clinical indication: Condition or disease; Other: Covid TECHNIQUE: Imaging protocol: XR of the chest Views: 1 view. COMPARISON: CR XR chest 1V portable [id number] 05/28/2020 6:48 AM FINDINGS: Lungs: There is mild bilateral interstitial pulmonary haziness which is slightly more prominent than on previous examination. This may represent interstitial viral pneumonia. No focal airspace consolidation is seen. Pleural space: Unremarkable. No pleural effusion. No pneumothorax. Heart/Mediastinum: Unremarkable. No cardiomegaly. Bones/joints: Unremarkable. XR/XR chest 1V portable [id number] IMPRESSION: Mild bilateral interstitial pulmonary haze suggesting a mild viral process.
[2020-05-30 06:04] LABS: Basophils % 0.3 %; Eosinophils # 0.1 10^3/uL (0.0-0.8); Eosinophils % 0.6 %; Hematocrit 41.9 % (42.0-52.0); Lymphocytes # 1.5 10^3/uL (0.8-4.8); Lymphocytes % 15.4 %; Mean Corpuscular Hemoglobin 28.4 pg (28.0-34.0); Mean Corpuscular Volume 91.5 fL (80-94); Mean Platelet Volume 12.2 fL (7.4-10.4); Monocytes # 0.9 10^3/uL (0.2-0.9); Neutrophils # 7.13 10^3/uL (1.8-7.7); Neutrophils % 73.5 %; Nucleated Red Blood Cells % 0 %; Platelet Count 106 10^3/cmm (130-400); Red Blood Count 4.58 10^6/uL (4.1-5.3); Red Cell Distribution Width 13.8 % (12.1-15.1); White Blood Count 9.7 10^3/uL (4.0-10.0)
--- NOTE | 2020-05-30 06:17 | PC.NURSE ---
SHIFT SUMMARY Has rested well. Sits on side of bed alot. Has been afebrile tonight. Right lower leg remains quite swollen, red, tender and warm to touch. Has several small scabbed sores. Says has had this happen before and starts as blisters on his leg. Still some SOB with exertion but says is pretty normal for him. O2 at 5l which is his baseline. Occ prod cough. Remains on 1500ml fluid restriction and voids per urinal. Receiving IV antibiotics.
[2020-05-30] MEDS: budesonide 0.5 mg/2 mL Neb INHALATION ×2 (08:55→20:06)
[2020-05-30] MEDS: piperacillin-tazobactam 3.375 GM in sodium chloride 0.9% (plus) 50 ML IV ×3 (09:43→23:39)
[2020-05-30] MEDS: famotidine 20 mg Tablet PO ×2 (09:43→19:38)
[2020-05-30] MEDS: potassium chloride ER 10 mEq Tablet 30 MEQ PO ×2 (09:44→19:37)
[2020-05-30] MEDS: metoprolol tartrate 25 mg Tablet PO ×2 (09:45→16:40)
[2020-05-30] MEDS: aspirin 81 mg EC Tablet PO (09:45)
[2020-05-30] MEDS: ascorbic acid 500 mg Tablet PO (09:45)
[2020-05-30] MEDS: zinc gluconate 50 mg Tablet PO (09:45)
[2020-05-30] MEDS: roflumilast 500 mcg Tablet PO (09:45)
[2020-05-30] MEDS: nicotine 14 mg Patch 1 PATCH TRANSDERMA (09:46)
[2020-05-30] MEDS: benzonatate 100 mg Capsule PO ×3 (09:46→20:18)
[2020-05-30] MEDS: predniSONE 20 mg Tablet 40 MG PO (09:46)
--- NOTE | 2020-05-30 10:40 | CT_ITS ---
WS: [id number] NONCONTRAST CT RIGHT LOWER EXTREMITY TECHNIQUE: Noncontrast CT right lower extremity with coronal and sagittal reformatted images. CLINICAL INFORMATION: right leg swelling COMPARISON: None. DLP: 859.[address] scans at [facility] use at least one of these dose optimization techniques: automat ed exposure control; mA and/or kV adjustment per patient size (includes targeted exams where dose is matched to clinical indication); or iterative reconstruction. FINDINGS: Normal anatomic alignment. No acute fractures. Mild degenerative arthritis with joint space narrowing . Normal tibial plateau. Normal fibula head and fibular shaft. Visualized ankle mortise is normal. Pa rtially visualized patella is normal. Moderate diffuse soft tissue edema involving the right infrapat ellar soft tissues and right lower extremity. Vascular calcification. No drainable abscess or fluid c ollection. CT/CT lower leg RT wo con* [id number] IMPRESSION: 1. Normal anatomic alignment. No acute fractures. 2. Mild degenerative arthritis with joint space narrowing involving the medial lateral joint compartments. 3. Moderate diffuse soft tissue edema involving the right lower extremity wors e in the lower leg. 4. No drainable abscess or fluid collection. 5. Vascular calcification
--- NOTE | 2020-05-30 10:44 | USCV_ITS ---
Conrad Ramirez Age: 59 Gender: M : 1960 Exam Date: 05/30/2020 15:18 Ordering Phys: Harry Fair MD Technologist: Viet Pratt Exam Location: [facility] – [place] Indication: RT LEG PAIN AND REDNESS Risk Factors: Smoker Previous Vascular Surgery: None RIGHT LEFT BP: 140.0 / 80.00 BP: 140.0/ 80.00 0 0 Waveform Velocity (cm/s) Velocity (cm/s) Waveform Triphasic 132.1 Iliac Prox Triphasic 177.1 Iliac Mid Biphasic Iliac Distal 143.7 Biphasic 178.7 RESIDENCY COORDINATOR Monophasic 130.3 SFA Prox Monophasic 155.3 SFA Mid Monophasic 132.0 SFA Dist Monophasic 118.6 POP Monophasic 66.8 GUITAR REPAIR TECHNICIAN Monophasic 72.0 DPA 1.1 DEBBIE FINDINGS Normal resting DEBBIE on the right side Normal arterial Doppler flow velocities CONCLUSIONS 1. Normal resting DEBBIE with abnormal arterial Doppler waveforms, suggestive of nonobstructive artery disease Dr Aung Elizalde MD FAC (Electronically Signed) Final Date: 31 May 2020 20:26 S
[2020-05-30] MEDS: iron sucrose 200 MG in sodium chloride 0.9% (100 ml) 100 ML 220 MG IV (12:37)
[2020-05-30] MEDS: metroNIDAZOLE IV 500 MG/100 ML PREMIX 100 MG IV ×2 (14:05→19:41)
--- NOTE | 2020-05-30 15:00 | PC.SOCIAL ---
IMM Updated Page 2 of IMM updated and given to patient. Initialed, dated, and timed, and placed back in chart.
--- NOTE | 2020-05-30 15:05 | P.PN_ITS ---
Subjective Subjective: Interval history: Overnight patient remains afebrile, still on 5 L, ambulating a bit more today, still a bit short of breath, his main complaint today is his significant right lower extremity erythema, tenderness, swelling that is slightly worsened today, he tells me that this is happened before when he scratched had a skin lesion on his right lower extremity, and developed severe cellulitis, continues to have extensive swelling, tenderness, erythema of the location which is slightly worsened today Vitals/I&O/Wt Last Vital Signs Temp 97.9 F 05/30/20 12:00 Pulse 73 05/30/20 14:43 Resp 18 05/30/20 14:42 BP 112/53 05/30/20 12:00 Pulse Ox 5 L 05/30/20 14:42 05/30/20 05/30/20 05/30/20 06:59 14:59 22:59 Intake Total 110 / 2030 600 / 600 Output Total 750 / 3380 1000 / 1000 Balance -640 / -1350 -400 / -400 Weight last 48 hrs Weight 131.542 kg Weight 129.274 kg Physical Exam Const: COMMON NORMALS: no acute distress and patient oriented x3 HENMT: COMMON NORMALS: normocephalic HEAD & SCALP: normocephalic Neck/C-Spine: COMMON NORMALS: no JVD Resp: COMMON NORMALS: normal respiratory effort, No retractions, No use of accessory muscles and clear to auscultation bilaterally AUSCULTATION: clear to auscultation bilaterally Cardio: COMMON NORMALS: no JVD, regular rate, regular rhythm, S1 normal heart sound present and S2 normal heart sound present RATE: regular rate RHYTHM: regular rhythm HEART SOUNDS: S1 normal heart sound present and S2 normal heart sound present GI: COMMON NORMALS: Normal to inspection, nondistended, normoactive bowel sounds present, Soft to palpation, non-tender, No hepatosplenomegaly present, no masses and no bruits PALPATION: Yes Soft to palpation and Yes No hepatosplenomegaly present Extremity: NARRATIVE EXTREMITY EXAM: Right lower extremity, erythema, swelling, tenderness extending from the mid tib-fib down to the toes, with significant 1+ pitting edema, pain with range of motion, warmth, slightly worse compared to yesterday Neuro: COMMON NORMALS: patient oriented x3 Psych: COMMON NORMALS: mental status grossly normal Data : 05/30/20 04:32 05/30/20 04:32 Micro: Microbiology 05/30/20 14:11 Blood Culture - Preliminary Blood SPECIMEN COLLECTED 05/30/20 14:07 Blood Culture - Preliminary Blood SPECIMEN COLLECTED A&P Assessment and plan (1) Sepsis: Status: Acute (2) Respiratory failure with hypoxia: Status: Acute Qualifiers: Chronicity: acute on chronic Qualified Code(s): J96.21 - Acute and chronic respiratory failure with hypoxia (3) Acute exacerbation of chronic obstructive airways disease: Status: Acute (4) Severe chronic obstructive pulmonary disease: Status: Chronic (5) Thrombocytopenia: Status: Acute (6) Altered mental status: Status: Acute (7) Hypertension: Status: Chronic Qualifiers: Hypertension type: essential hypertension Qualified Code(s): I10 - Essential (primary) hypertension (8) Hyperlipidemia: Status: Chronic Qualifiers: Hyperlipidemia type: mixed hyperlipidemia Qualified Code(s): E78.2 - Mixed hyperlipidemia (9) Cellulitis of right leg: Status: Acute Additional A&P Information Sepsis: Resolved, secondary to strep pneumonia -criteria met through tachycardia, fever, leukocytosis on presentation. Currently resolved. -Respiratory failure with hypoxia and hypercapnia: Most likely because of pneumonia causing exacerbation of COPD: He was admitted in -----September with influenza pneumonia and was intubated at that time.. -COVID-19 ruled out. Urine Legionella, bacterial antigen, MRSA negative. Flu negative. lower limb dopplers negative for DVT - Continue with Zosyn for now. -Sputum culture growing strep pneumonia. We will continue to monitor culture results and de-escalate antibiotics as per the sensitivities. -Currently on 5 L nasal cannula, still short of breath with minimal exertion, but improving Last echocardiogram from September shows an EF of 60% with grade 1 diastolic dysfunction. On 60 mg Lasix twice daily, patient is to 6 L negative since admission. Fluid restriction up to 1500 cc. Strict input output charting. Daily weights. Severe COPD: Continue 40 mg of oral prednisone daily Advair, Spiriva as patient is on aerosol precautions. Vitamin C, zinc. Oxygen supplementation keeping saturation over 88%. At baseline patient is on 5 L of oxygen supplementation. BiPAP at night. Altered mental status: Resolved. Most likely secondary to sepsis. Mild hypercapnia on ABG. Hypertension: Goal blood pressure less than 140/90mmhg. Continue home dose of metoprolol. Thrombocytopenia: Most likely because of sepsis. Stable. No signs of bleeding at present. We will continue to monitor. Iron panel suggestive of iron deficiency anemia. IV iron supplementation. Day 3/5. Right lower extremity cellulitis: Right lower extremity swelling, erythema, tenderness, warmth worse today -Ultrasound was negative for DVT -X-ray showed soft tissue swelling -Pro-Bishnu 0.16, CRP 19.4, ESR 16 -Has been on Vanco, Zosyn for the last 24 hours -I would have expected some clinical improvement, but slightly worse today, afebrile, normotensive Plan: -Continue vancomycin, Zosyn -Will add Flagyl for anaerobic coverage -It does not look like necrotizing fasciitis, but will do a CT of the right lower extremity -Right lower extremity arterial ultrasound to evaluate for blood flow -Doppler DP PT pulses, I was not able to palpate pulses, but has good capillary refill Continue other chronic medications like aspirin, statin, Roflumilast, potassium supplementation. Patient's DPOA will be his son Mr. Sol [phone]. Possible to talk to son today. He states he was at his baseline mentation earlier in the morning and did not suddenly started having altered mental status and hallucination along with high-grade fever Full code. Famotidine for PUD prophylaxis Lovenox for DVT prophylaxis Cardiac diet. Attestations Medical Necessity Statement*: Patient requires hospitalization, for respiratory failure, pneumonia, now right lower extremity cellulitis Coding Level of Care Code Acute Rare/Endangered Species Specialist for [facility] Diagnoses Sepsis A41.9 Respiratory failure with hypoxia J96.21 Chronicity: acute on chronic Acute exacerbation of chronic obstructive airways disease J44.1 Severe chronic obstructive pulmonary disease J44.9 Thrombocytopenia D69.6 Altered mental status R41.82 Hypertension I10 Hypertension type: essential hypertension Hyperlipidemia E78.2 Hyperlipidemia type: mixed hyperlipidemia Cellulitis of right leg L03.115
[2020-05-30 15:38] LABS: Vancomycin Trough 8.9 ug/mL (10-15)
[2020-05-30] MEDS: FUROsemide 40 mg Tablet PO (16:41)
[2020-05-30] MEDS: enoxaparin 40 mg/0.4 mL Syringe SUBCUT (19:38)
[2020-05-30] MEDS: atorvastatin 40 mg Tablet PO (20:18)
[2020-05-31] VITALS (14 sets, daily range): BP systolic 98–133; BP diastolic 58–71; PULSE 57–96; RESP 16–20; TEMP 36.6–37; O2SAT 93–100
[2020-05-31] MEDS: ipratropium-albuterol 3 mL Neb INHALATION ×4 (02:46→21:26)
[2020-05-31] MEDS: metroNIDAZOLE IV 500 MG/100 ML PREMIX 100 MG IV ×3 (03:55→17:11)
[2020-05-31 05:11] LABS: Basophils % 0.2 %; Eosinophils # 0.2 10^3/uL (0.0-0.8); Eosinophils % 1.3 %; Hematocrit 39.7 % (42.0-52.0); Hemoglobin 12.4 g/dL (11.7-16.6); Lymphocytes # 1.7 10^3/uL (0.8-4.8); Lymphocytes % 13.8 %; Mean Corpuscular HGB Conc 31.2 g/dL (30.0-36.0); Mean Corpuscular Hemoglobin 28.4 pg (28.0-34.0); Mean Corpuscular Volume 90.8 fL (80-94); Mean Platelet Volume 12.2 fL (7.4-10.4); Monocytes # 0.9 10^3/uL (0.2-0.9); Monocytes % 7.2 %; Neutrophils # 9.08 10^3/uL (1.8-7.7); Neutrophils % 75.1 %; Nucleated Red Blood Cells % 0 %; Platelet Count 132 10^3/cmm (130-400); Red Blood Count 4.37 10^6/uL (4.1-5.3); Red Cell Distribution Width 13.7 % (12.1-15.1); White Blood Count 12.1 10^3/uL (4.0-10.0)
[2020-05-31 05:27] LABS: Alanine Aminotransferase 13 U/L (0-41); Albumin Level 3.2 g/dL (3.5-5.2); Alkaline Phosphatase 40 IU/L (40-130); Anion Gap 8.5 (5-19); Aspartate Amino Transferase 10 U/L (0-40); Blood Urea Nitrogen 10 mg/dL (6-20); Calcium 8.8 mg/dL (8.5-10.5); Carbon Dioxide 36 mmol/L (22-29); Chloride 98 mmol/L (98-107); Globulin 2.3 g/dL (1.3-4.6); Glomerular Filtration Rate 220.2 mL/min (90-130); Glucose 98 mg/dL (65-115); Osmolality Calculated 287 mOsm/kg (285-295); Potassium 3.5 mmol/L (3.5-5.1); Sodium 139 mmol/L (136-145); Total Bilirubin 0.4 mg/dL (0.15-1.2); Total Protein 5.5 g/dL (6.6-8.7)
[2020-05-31 08:17] LABS: Procalcitonin 0.05 ng/mL (0-0.5)
[2020-05-31] MEDS: budesonide 0.5 mg/2 mL Neb INHALATION ×2 (08:26→21:26)
[2020-05-31 08:28] LABS: C Reactive Protein 26.2 mg/L (0.0-4.9)
[2020-05-31] MEDS: piperacillin-tazobactam 3.375 GM in sodium chloride 0.9% (plus) 50 ML IV (09:03)
[2020-05-31] MEDS: zinc gluconate 50 mg Tablet PO (09:03)
[2020-05-31] MEDS: predniSONE 20 mg Tablet 40 MG PO (09:04)
[2020-05-31] MEDS: FUROsemide 40 mg Tablet PO ×2 (09:04→17:11)
[2020-05-31] MEDS: ascorbic acid 500 mg Tablet PO (09:04)
[2020-05-31] MEDS: metoprolol tartrate 25 mg Tablet PO ×2 (09:04→17:11)
[2020-05-31] MEDS: benzonatate 100 mg Capsule PO ×3 (09:04→20:25)
[2020-05-31] MEDS: roflumilast 500 mcg Tablet PO (09:04)
[2020-05-31] MEDS: potassium chloride ER 10 mEq Tablet 30 MEQ PO ×2 (09:04→20:26)
[2020-05-31] MEDS: aspirin 81 mg EC Tablet PO (09:04)
[2020-05-31] MEDS: famotidine 20 mg Tablet PO ×2 (09:04→20:25)
[2020-05-31] MEDS: nicotine 14 mg Patch 1 PATCH TRANSDERMA (09:05)
--- NOTE | 2020-05-31 15:01 | PM.PN ---
Subjective Subjective: Interval history: This morning patient was seen, he is on his home 5 L, not complaining any chest pain, no shortness of breath, the right lower extremity erythema, swelling, warmth has significantly improved, but still persists in areas, overall doing better Vitals/I&O/Wt Last Vital Signs Temp 98.1 F 05/31/20 11:19 Pulse 96 05/31/20 14:23 Resp 17 05/31/20 14:23 BP 98/60 05/31/20 11:19 Pulse Ox 97 05/31/20 14:23 05/31/20 05/31/20 05/31/20 06:59 14:59 22:59 Intake Total 650 / 2290 600 / 600 Output Total 125 / 3925 75 / 75 Balance 525 / -1635 525 / 525 Weight last 48 hrs Weight 131.55 kg Weight 131.542 kg Physical Exam Const: COMMON NORMALS: no acute distress and patient oriented x3 HENMT: COMMON NORMALS: normocephalic HEAD & SCALP: normocephalic Neck/C-Spine: COMMON NORMALS: no JVD Resp: COMMON NORMALS: normal respiratory effort, No retractions, No use of accessory muscles and clear to auscultation bilaterally AUSCULTATION: clear to auscultation bilaterally Cardio: COMMON NORMALS: no JVD, regular rate, regular rhythm, S1 normal heart sound present and S2 normal heart sound present RATE: regular rate RHYTHM: regular rhythm HEART SOUNDS: S1 normal heart sound present and S2 normal heart sound present GI: COMMON NORMALS: Normal to inspection, nondistended, normoactive bowel sounds present, Soft to palpation, non-tender, No hepatosplenomegaly present, no masses and no bruits PALPATION: Yes Soft to palpation and Yes No hepatosplenomegaly present Extremity: NARRATIVE EXTREMITY EXAM: Right lower extremity, erythema, swelling, tenderness extending from the mid tib-fib down to the toes, with significant 1+ pitting edema, pain with range of motion, warmth, improved compared to yesterday Neuro: COMMON NORMALS: patient oriented x3 Psych: COMMON NORMALS: mental status grossly normal Data : 05/31/20 04:56 05/31/20 04:56 Micro: Microbiology 05/30/20 14:11 Blood Culture - Preliminary Blood NEGATIVE TO DATE 05/30/20 14:07 Blood Culture - Preliminary Blood NEGATIVE TO DATE 05/26/20 04:50 Gram Stain - Final Sputum - Expectorated Sputum Sputum Culture - Final Streptococcus pneumoniae 05/25/20 15:57 Blood Culture - Final Blood NO GROWTH AFTER 5 DAYS 05/25/20 15:46 Blood Culture - Final Blood NO GROWTH AFTER 5 DAYS A&P Assessment and plan (1) Sepsis: Status: Acute (2) Respiratory failure with hypoxia: Status: Acute Qualifiers: Chronicity: acute on chronic Qualified Code(s): J96.21 - Acute and chronic respiratory failure with hypoxia (3) Acute exacerbation of chronic obstructive airways disease: Status: Acute (4) Severe chronic obstructive pulmonary disease: Status: Chronic (5) Thrombocytopenia: Status: Acute (6) Altered mental status: Status: Acute (7) Hypertension: Status: Chronic Qualifiers: Hypertension type: essential hypertension Qualified Code(s): I10 - Essential (primary) hypertension (8) Hyperlipidemia: Status: Chronic Qualifiers: Hyperlipidemia type: mixed hyperlipidemia Qualified Code(s): E78.2 - Mixed hyperlipidemia (9) Cellulitis of right leg: Status: Acute Additional A&P Information Sepsis: Resolved, secondary to strep pneumonia -criteria met through tachycardia, fever, leukocytosis on presentation. Currently resolved. -Respiratory failure with hypoxia and hypercapnia: Most likely because of pneumonia causing exacerbation of COPD: He was admitted in -----September with influenza pneumonia and was intubated at that time.. -COVID-19 ruled out. Urine Legionella, bacterial antigen, MRSA negative. Flu negative. lower limb dopplers negative for DVT -Sputum culture positive for strep pneumo, resistant to penicillin, switch to Rocephin -Currently on 5 L nasal cannula, still short of breath with minimal exertion, but improving Last echocardiogram from September shows an EF of 60% with grade 1 diastolic dysfunction. On 60 mg Lasix twice daily, patient is to 6 L negative since admission. Fluid restriction up to 1500 cc. Strict input output charting. Daily weights. Severe COPD: Continue 40 mg of oral prednisone daily Advair, Spiriva as patient is on aerosol precautions. Vitamin C, zinc. Oxygen supplementation keeping saturation over 88%. At baseline patient is on 5 L of oxygen supplementation. BiPAP at night. Altered mental status: Resolved. Most likely secondary to sepsis. Mild hypercapnia on ABG. Hypertension: Goal blood pressure less than 140/90mmhg. Continue home dose of metoprolol. Thrombocytopenia: Most likely because of sepsis. Stable. No signs of bleeding at present. We will continue to monitor. Iron panel suggestive of iron deficiency anemia. Finished IV replacement Will require outpatient follow-up for colonoscopy Right lower extremity cellulitis: Right lower extremity swelling, erythema, tenderness, warmth improved today -Ultrasound was negative for DVT -CT of right lower extremity shows no evidence of abscess, necrotizing fasciitis, -Pro-Bishnu 0.16, CRP 19.4, ESR 16 -Has been on Vanco, Zosyn for the last 24 hours -I would have expected some clinical improvement, but slightly worse today, afebrile, normotensive Plan: -Continue vancomycin, Zosyn -Will add Flagyl for anaerobic coverage -It does not look like necrotizing fasciitis, but will do a CT of the right lower extremity, moderate diffuse soft tissue edema -Right lower extremity arterial ultrasound to evaluate for blood flow -Doppler DP PT pulses, I was able to palpate DP pulse, but has good capillary refill Continue other chronic medications like aspirin, statin, Roflumilast, potassium supplementation. Patient's DPOA will be his son Mr. Sol [phone]. Possible to talk to son today. He states he was at his baseline mentation earlier in the morning and did not suddenly started having altered mental status and hallucination along with high-grade fever Full code. Famotidine for PUD prophylaxis Lovenox for DVT prophylaxis Cardiac diet. Attestations Medical Necessity Statement*: Patient requires hospitalization for acute respiratory failure, right lower extremity cellulitis Coding Level of Care Code Acute Plow Shaker for [facility] Diagnoses Sepsis A41.9 Respiratory failure with hypoxia J96.21 Chronicity: acute on chronic Acute exacerbation of chronic obstructive airways disease J44.1 Severe chronic obstructive pulmonary disease J44.9 Thrombocytopenia D69.6 Altered mental status R41.82 Hypertension I10 Hypertension type: essential hypertension Hyperlipidemia E78.2 Hyperlipidemia type: mixed hyperlipidemia Cellulitis of right leg L03.115
[2020-05-31] MEDS: cefTRIAXone 1,000 MG in sodium chloride 0.9% (plus) 50 ML 100 MG IV (17:11)
[2020-05-31] MEDS: enoxaparin 40 mg/0.4 mL Syringe SUBCUT (20:25)
[2020-05-31] MEDS: atorvastatin 40 mg Tablet PO (20:26)
[2020-06-01] VITALS (12 sets, daily range): BP systolic 115–128; BP diastolic 63–82; PULSE 65–89; RESP 16–20; TEMP 36.4–36.9; O2SAT 93–97
[2020-06-01] MEDS: metroNIDAZOLE IV 500 MG/100 ML PREMIX 100 MG IV ×3 (03:14→17:11)
[2020-06-01] MEDS: ipratropium-albuterol 3 mL Neb INHALATION ×4 (03:14→20:59)
[2020-06-01 06:13] LABS: Basophils % 0.3 %; Eosinophils # 0.2 10^3/uL (0.0-0.8); Eosinophils % 1.9 %; Hematocrit 41.3 % (42.0-52.0); Hemoglobin 12.6 g/dL (11.7-16.6); Lymphocytes % 15.2 %; Mean Corpuscular HGB Conc 30.5 g/dL (30.0-36.0); Mean Corpuscular Hemoglobin 27.8 pg (28.0-34.0); Mean Platelet Volume 12.4 fL (7.4-10.4); Monocytes # 0.9 10^3/uL (0.2-0.9); Monocytes % 6.7 %; Neutrophils # 9.25 10^3/uL (1.8-7.7); Neutrophils % 71.3 %; Nucleated Red Blood Cells % 0 %; Platelet Count 131 10^3/cmm (130-400); Red Blood Count 4.54 10^6/uL (4.1-5.3); Red Cell Distribution Width 13.6 % (12.1-15.1)
[2020-06-01] MEDS: famotidine 20 mg Tablet PO ×2 (06:35→20:23)
[2020-06-01 06:36] LABS: Alanine Aminotransferase 16 U/L (0-41); Albumin Level 3.2 g/dL (3.5-5.2); Alkaline Phosphatase 42 IU/L (40-130); Anion Gap 11.7 (5-19); Aspartate Amino Transferase 12 U/L (0-40); Blood Urea Nitrogen 10 mg/dL (6-20); Calcium 8.5 mg/dL (8.5-10.5); Carbon Dioxide 32 mmol/L (22-29); Chloride 99 mmol/L (98-107); Globulin 2.7 g/dL (1.3-4.6); Glomerular Filtration Rate 220.2 mL/min (90-130); Glucose 89 mg/dL (65-115); Magnesium 2.2 mg/dL (1.7-2.3); Osmolality Calculated 287 mOsm/kg (285-295); Potassium 3.7 mmol/L (3.5-5.1); Sodium 139 mmol/L (136-145); Total Bilirubin 0.3 mg/dL (0.15-1.2); Total Protein 5.9 g/dL (6.6-8.7)
[2020-06-01 06:43] LABS: Procalcitonin 0.05 ng/mL (0-0.5)
[2020-06-01 06:54] LABS: C Reactive Protein 21.1 mg/L (0.0-4.9)
[2020-06-01] MEDS: budesonide 0.5 mg/2 mL Neb INHALATION ×2 (08:16→20:59)
--- NOTE | 2020-06-01 09:18 | DCPLANNER ---
Pg 2 of IM updated and reviewed with pt. No questions, copy provided.
[2020-06-01] MEDS: aspirin 81 mg EC Tablet PO (09:30)
[2020-06-01] MEDS: FUROsemide 40 mg Tablet PO ×2 (09:30→17:07)
[2020-06-01] MEDS: potassium chloride ER 10 mEq Tablet 30 MEQ PO ×2 (09:30→20:24)
[2020-06-01] MEDS: metoprolol tartrate 25 mg Tablet PO ×2 (09:31→17:08)
[2020-06-01] MEDS: predniSONE 20 mg Tablet 40 MG PO (09:31)
[2020-06-01] MEDS: zinc gluconate 50 mg Tablet PO (09:31)
[2020-06-01] MEDS: nicotine 14 mg Patch 1 PATCH TRANSDERMA (09:31)
[2020-06-01] MEDS: benzonatate 100 mg Capsule PO ×3 (09:31→20:24)
[2020-06-01] MEDS: roflumilast 500 mcg Tablet PO (09:31)
[2020-06-01] MEDS: ascorbic acid 500 mg Tablet PO (09:31)
[2020-06-01] MEDS: cefTRIAXone 1,000 MG in sodium chloride 0.9% (plus) 50 ML 100 MG IV (14:17)
[2020-06-01 15:12] LABS: Vancomycin Trough 12.6 ug/mL (10-15)
--- NOTE | 2020-06-01 15:43 | PM.PN ---
Subjective Subjective: Interval history: Patient is doing well this morning, no fevers, chills, still on 5 L nasal cannula, tell me that the right lower extremity swelling, erythema, tenderness, warmth has significantly improved, but persists in certain areas, no nausea, no vomiting, ambulating with some pain Vitals/I&O/Wt Last Vital Signs Temp 97.5 F L 06/01/20 15:34 Pulse 79 06/01/20 15:34 Resp 18 06/01/20 15:34 BP 125/82 06/01/20 15:34 Pulse Ox 96 06/01/20 15:34 06/01/20 06/01/20 06/01/20 06:59 14:59 22:59 Intake Total 600 / 2310 600 / 600 Output Total 1105 / 2505 800 / 800 Balance -505 / -195 -200 / -200 Weight last 48 hrs Weight 134.717 kg Weight 131.55 kg Physical Exam Const: COMMON NORMALS: no acute distress and patient oriented x3 Neck/C-Spine: COMMON NORMALS: no JVD Resp: COMMON NORMALS: normal respiratory effort, No retractions, No use of accessory muscles and clear to auscultation bilaterally AUSCULTATION: clear to auscultation bilaterally Cardio: COMMON NORMALS: no JVD, regular rate, regular rhythm, S1 normal heart sound present and S2 normal heart sound present RATE: regular rate RHYTHM: regular rhythm HEART SOUNDS: S1 normal heart sound present and S2 normal heart sound present GI: COMMON NORMALS: Normal to inspection, nondistended, normoactive bowel sounds present, Soft to palpation, non-tender, No hepatosplenomegaly present, no masses and no bruits PALPATION: Yes Soft to palpation and Yes No hepatosplenomegaly present Extremity: NARRATIVE EXTREMITY EXAM: Right lower extremity, erythema, swelling, tenderness extending from the mid tib-fib down to the toes, with significant 1+ pitting edema, some pain with range of motion, significantly improved compared to yesterday, but certainly dark red warmth in certain areas Neuro: COMMON NORMALS: patient oriented x3 Psych: COMMON NORMALS: mental status grossly normal Data : 06/01/20 05:17 06/01/20 05:17 Micro: Microbiology 05/30/20 14:11 Blood Culture - Preliminary Blood NEGATIVE TO DATE 05/30/20 14:07 Blood Culture - Preliminary Blood NEGATIVE TO DATE 05/26/20 04:50 Gram Stain - Final Sputum - Expectorated Sputum Sputum Culture - Final Streptococcus pneumoniae A&P Assessment and plan (1) Sepsis: Status: Acute (2) Respiratory failure with hypoxia: Status: Acute Qualifiers: Chronicity: acute on chronic Qualified Code(s): J96.21 - Acute and chronic respiratory failure with hypoxia (3) Acute exacerbation of chronic obstructive airways disease: Status: Acute (4) Severe chronic obstructive pulmonary disease: Status: Chronic (5) Thrombocytopenia: Status: Acute (6) Altered mental status: Status: Acute (7) Hypertension: Status: Chronic Qualifiers: Hypertension type: essential hypertension Qualified Code(s): I10 - Essential (primary) hypertension (8) Hyperlipidemia: Status: Chronic Qualifiers: Hyperlipidemia type: mixed hyperlipidemia Qualified Code(s): E78.2 - Mixed hyperlipidemia (9) Cellulitis of right leg: Status: Acute Additional A&P Information Sepsis: Resolved, secondary to strep pneumonia -criteria met through tachycardia, fever, leukocytosis on presentation. Currently resolved. -Respiratory failure with hypoxia and hypercapnia: Most likely because of pneumonia causing exacerbation of COPD: He was admitted in September with influenza pneumonia and was intubated at that time.. -COVID-19 ruled out. Urine Legionella, bacterial antigen, MRSA negative. Flu negative. lower limb dopplers negative for DVT -Sputum culture positive for strep pneumo, resistant to penicillin, switched to Rocephin -Currently on 5 L nasal cannula, still short of breath with minimal exertion, but improving Last echocardiogram from September shows an EF of 60% with grade 1 diastolic dysfunction. On 60 mg Lasix twice daily, patient is to 6 L negative since admission. Fluid restriction up to 1500 cc. Strict input output charting. Daily weights. Severe COPD: Continue 40 mg of oral prednisone daily Advair, Spiriva as patient is on aerosol precautions. Vitamin C, zinc. Oxygen supplementation keeping saturation over 88%. At baseline patient is on 5 L of oxygen supplementation. BiPAP at night. Altered mental status: Resolved. Most likely secondary to sepsis. Mild hypercapnia on ABG. Hypertension: Goal blood pressure less than 140/90mmhg. Continue home dose of metoprolol. Thrombocytopenia: Most likely because of sepsis. Resolved has significantly improved today No signs of bleeding at present. We will continue to monitor. Iron panel suggestive of iron deficiency anemia. Finished IV replacement Will require outpatient follow-up for colonoscopy Right lower extremity cellulitis: Right lower extremity swelling, erythema, tenderness, warmth improved today -Ultrasound was negative for DVT -CT of right lower extremity shows no evidence of abscess, necrotizing fasciitis, -Pro-Bishnu 0.16, CRP 19.4, ESR 16 and white blood cell count 13 -Has been on Vanco, for the last 48 hours, change Zosyn to Rocephin, and added Flagyl in the last 24 -Remains afebrile, normotensive, good clinical improvement today Plan: -Continue vancomycin, Rocephin and Flagyl -It does not look like necrotizing fasciitis, but will do a CT of the right lower extremity, moderate diffuse soft tissue edema -Right lower extremity arterial ultrasound to evaluate for blood flow with abnormal arterial Doppler waveforms suggestive of nonobstructive artery disease -Doppler DP PT pulses, I was able to palpate DP pulse, but has good capillary refill Continue other chronic medications like aspirin, statin, Roflumilast, potassium supplementation. Patient's DPOA will be his son Mr. Sol [phone]. Possible to talk to son today. He states he was at his baseline mentation earlier in the morning and did not suddenly started having altered mental status and hallucination along with high-grade fever Full code. Famotidine for PUD prophylaxis Lovenox for DVT prophylaxis Cardiac diet. Attestations Medical Necessity Statement*: Patient requires hospitalization for sepsis, respiratory failure, now with right lower extremity cellulitis improved, likely discharge the next 24 hours Coding Level of Care Code Acute Acquisitions Editor for [facility] Diagnoses Sepsis A41.9 Respiratory failure with hypoxia J96.21 Chronicity: acute on chronic Acute exacerbation of chronic obstructive airways disease J44.1 Severe chronic obstructive pulmonary disease J44.9 Thrombocytopenia D69.6 Altered mental status R41.82 Hypertension I10 Hypertension type: essential hypertension Hyperlipidemia E78.2 Hyperlipidemia type: mixed hyperlipidemia Cellulitis of right leg L03.115
[2020-06-01] MEDS: enoxaparin 40 mg/0.4 mL Syringe SUBCUT (20:23)
[2020-06-01] MEDS: atorvastatin 40 mg Tablet PO (20:24)
[2020-06-02] VITALS (9 sets, daily range): BP systolic 113–144; BP diastolic 63–77; PULSE 66–92; RESP 16–19; TEMP 36.4–37; O2SAT 93–98
[2020-06-02] MEDS: ipratropium-albuterol 3 mL Neb INHALATION ×2 (02:40→08:51)
[2020-06-02] MEDS: metroNIDAZOLE IV 500 MG/100 ML PREMIX 100 MG IV ×2 (02:48→11:08)
[2020-06-02 05:29] LABS: Hematocrit 39.6 % (42.0-52.0); Hemoglobin 12.2 g/dL (11.7-16.6); Mean Corpuscular HGB Conc 30.8 g/dL (30.0-36.0); Mean Platelet Volume 12.1 fL (7.4-10.4); Platelet Count 143 10^3/cmm (130-400); Red Blood Count 4.35 10^6/uL (4.1-5.3); Red Cell Distribution Width 13.5 % (12.1-15.1); White Blood Count 9.8 10^3/uL (4.0-10.0)
[2020-06-02 06:12] LABS: Slide Review Slide Review Perform
[2020-06-02 06:13] LABS: Alanine Aminotransferase 25 U/L (0-41); Albumin Level 3.1 g/dL (3.5-5.2); Alkaline Phosphatase 39 IU/L (40-130); Anion Gap 10.6 (5-19); Aspartate Amino Transferase 18 U/L (0-40); Blood Urea Nitrogen 14 mg/dL (6-20); Calcium 8.5 mg/dL (8.5-10.5); Carbon Dioxide 34 mmol/L (22-29); Chloride 101 mmol/L (98-107); Globulin 2.4 g/dL (1.3-4.6); Glomerular Filtration Rate 220.2 mL/min (90-130); Glucose 101 mg/dL (65-115); Magnesium 2.1 mg/dL (1.7-2.3); Osmolality Calculated 295 mOsm/kg (285-295); Phosphorus 3.4 mg/dL (2.5-4.5); Potassium 3.6 mmol/L (3.5-5.1); Sodium 142 mmol/L (136-145); Total Bilirubin 0.3 mg/dL (0.15-1.2); Total Protein 5.5 g/dL (6.6-8.7)
[2020-06-02 06:15] LABS: Absolute Eosinophils 0.2 10^3/cmm (0.0-0.7); Absolute Segmented Neutrophil 6.9 10/cmm (1.6-7.1); Eosinophils 3 %; Lymphocytes 18 %; Monocytes Absolute 0.9 10^3/cmm (0.1-0.6); Platelet Estimate Normal (Normal); Segmented Neutrophils 70 %; Total Cells Counted 100 (0-100)
[2020-06-02 06:16] LABS: Absolute Neutrophil 6.9 10^3/cmm (1.4-6.5)
[2020-06-02 06:20] LABS: Procalcitonin 0.04 ng/mL (0-0.5)
[2020-06-02] MEDS: famotidine 20 mg Tablet PO (06:32)
[2020-06-02 06:34] LABS: C Reactive Protein 12.7 mg/L (0.0-4.9)
[2020-06-02] MEDS: nicotine 14 mg Patch 1 PATCH TRANSDERMA (07:57)
[2020-06-02] MEDS: ascorbic acid 500 mg Tablet PO (07:57)
[2020-06-02] MEDS: roflumilast 500 mcg Tablet PO (07:57)
[2020-06-02] MEDS: zinc gluconate 50 mg Tablet PO (07:58)
[2020-06-02] MEDS: predniSONE 20 mg Tablet 40 MG PO (07:58)
[2020-06-02] MEDS: benzonatate 100 mg Capsule PO (07:58)
[2020-06-02] MEDS: FUROsemide 40 mg Tablet PO (07:58)
[2020-06-02] MEDS: aspirin 81 mg EC Tablet PO (07:58)
[2020-06-02] MEDS: potassium chloride ER 10 mEq Tablet 30 MEQ PO (07:58)
[2020-06-02] MEDS: metoprolol tartrate 25 mg Tablet PO (07:59)
[2020-06-02] MEDS: budesonide 0.5 mg/2 mL Neb INHALATION (08:51)
--- NOTE | 2020-06-02 12:00 | PM.DCS ---
Discharge Providers Date of Admission: 05/25/20 17:51 Date of Discharge: June 02, 2020 Attending Provider at Admission: Destinee Mao MD Attending Provider at Discharge: Harry Fair MD Primary Care Provider: EMMIE Freedman Diagnoses at Discharge Discharge Diagnosis (1) Sepsis: Status: Acute (2) Respiratory failure with hypoxia: Status: Acute Qualifiers: Chronicity: acute on chronic Qualified Code(s): J96.21 - Acute and chronic respiratory failure with hypoxia (3) Acute exacerbation of chronic obstructive airways disease: Status: Acute (4) Severe chronic obstructive pulmonary disease: Status: Chronic (5) Thrombocytopenia: Status: Acute (6) Altered mental status: Status: Acute (7) Hypertension: Status: Chronic Qualifiers: Hypertension type: essential hypertension Qualified Code(s): I10 - Essential (primary) hypertension (8) Hyperlipidemia: Status: Chronic Qualifiers: Hyperlipidemia type: mixed hyperlipidemia Qualified Code(s): E78.2 - Mixed hyperlipidemia (9) Cellulitis of right leg: Status: Acute Reason for Visit Reason for Visit: RUNNING A FEVER/ SOB Hospital Course Discharge Summary: This is a 59-year-old male with past medical history of COPD, uses 5-6L oxygen dependent, hypertension, hyperlipidemia, chronic smoker, obesity who presents to [facility] due to complaints of shortness of breath. Patient was admitted to [facility] for acute hypoxic respiratory failure and sepsis secondary, diastolic CHF exacerbation, to strep pneumonia positive sputum cultures, admitted to the ICU, received broad-spectrum antibiotics, steroid therapy, Lasix therapy, patient clinically improved, oxygen therapy was weaned down, moved to general medical floors, did well on the general medical floors, ambulating without significant symptomatology, on his home 5 to 6 L oxygen, discharged on Levaquin for 7 remaining days. For his diastolic CHF exacerbation, received Lasix therapy, clinically improved, diuresed 9.7 L, discharged on Lasix 40 twice daily, potassium replacement therapy, with a follow-up CMP in 1 week During his hospitalization, patient developed significant right lower extremity cellulitis, ultrasound was negative for DVT, CT scan was negative for abscess or necrotizing fasciitis, his antibiotic therapy was broadened, he was monitored for the next 72 hours, clinically there is area of cellulitis improved. Patient was discharged on doxycycline for 14 days, Flagyl for 14 days, and Levaquin for 7 days as above, with close follow-up with primary care provider in 1 week, I advised patient to continue ambulation, if patient were to have sudden worsening of swelling this could be an indicator of a DVT and he should go to the emergency room or primary care physician's office. For his severe COPD, was sent home on a steroid taper, advised to quit smoking, follow with pulmonary in 1 week Patient was also found to have iron deficiency anemia through his hospitalization, he finished IV replacement as inpatient, patient has a history of colonic polyps in the past, cannot remember when the last colonoscopy was performed, he needs an outpatient follow-up with general surgery for consideration EGD and colonoscopy. Physical Exam Const: COMMON NORMALS: no acute distress and patient oriented x3 HENMT: COMMON NORMALS: normocephalic HEAD & SCALP: normocephalic Neck/C-Spine: COMMON NORMALS: no JVD Resp: COMMON NORMALS: normal respiratory effort, No retractions, No use of accessory muscles and clear to auscultation bilaterally AUSCULTATION: clear to auscultation bilaterally Cardio: COMMON NORMALS: no JVD, regular rate, regular rhythm, S1 normal heart sound present and S2 normal heart sound present RATE: regular rate RHYTHM: regular rhythm HEART SOUNDS: S1 normal heart sound present and S2 normal heart sound present GI: COMMON NORMALS: Normal to inspection, nondistended, normoactive bowel sounds present, Soft to palpation, non-tender, No hepatosplenomegaly present, no masses and no bruits PALPATION: Yes Soft to palpation and Yes No hepatosplenomegaly present Extremity: COMMON NORMALS: capillary refill normal, no clubbing, cyanosis or edema and no calf tenderness NARRATIVE EXTREMITY EXAM: Right lower extremity cellulitis area significantly improved, retracting down marked borders, minimal edema, Neuro: COMMON NORMALS: patient oriented x3 Psych: COMMON NORMALS: mental status grossly normal Discharge Data Data Completed and Pending: Completed Studies During Hospitalization Category Date Time Status CT angio chest PE protcl [id number] Urge nt Cat Scan 05/25/20 20:[address] lower leg RT w o con* [id number] Routi ne Cat Scan 05/30/20 10:40 Completed XR chest 1V daisy ble 46493 Q48H Exams 05/26/20 06:00 Completed XR chest 1V daisy ble [id number] Q48H Exams 05/28/20 06:00 Completed XR chest 1V daisy ble [id number] Q48H Exams 05/30/20 06:00 Completed XR chest 1V daisy ble [id number] Stat Exams 05/25/20 15:26 Completed XR tibia fibula R T 2V [id number] Stat Exams 05/29/20 15:09 [place] [id number] Rout ine Ultrasound 05/30/20 10:44 [place] [id number] Urgent Ultrasound 05/26/20 19:26 [place] [id number] Stat Ultrasound 05/29/20 09:24 Completed Pending at discharge Category Date Time Status Blood Culture Sta t Lab 05/30/20 14:11 Results Complete Blood Co unt w/Auto AM LABS Lab 06/03/20 04:00 Ordered Comprehensive Met abolic Panel AM LA BS Lab 06/03/20 04:00 Ordered Magnesium AM LABS Lab 06/03/20 04:00 Ordered Phosphorus AM LAB S Lab 06/03/20 04:00 Ordered Procalcitonin AM LABS Lab 06/03/20 04:00 Ordered Labs from last 24 hours 06/02/20 06/02/20 06/02/20 04:41 04:41 04:41 WBC 9.8 RBC 4.35 Hgb 12.2 Hct 39.6 L MCV 91.0 MCH 28.0 MCHC 30.8 RDW 13.5 Plt Count 143 MPV 12.1 H Lymph % (Auto) Not Reportable [facility] % (Auto) Not Reportable Lymph # (Auto) Not Reportable [facility] # (Auto) Not Reportable Total Counted 100 Atypical Lymphs % 0.0 Absolute Neutrophi ls 6.9 H Segmented Neutroph ils 70 Abs Segm Neuts (Ma n) 6.9 Band Neutrophils 0.0 Abs Band Neuts (Ma n) 0.0 Lymphocytes (Manua l) 18 Monocytes (Manual) 9.0 Absolute Monocytes 0.9 H Eosinophils (Manua l) 3 Absolute Eosinophi ls 0.2 Basophils (Manual) 0.0 Absolute Basophils 0.0 Platelet Estimate Normal Sodium 142 Potassium 3.6 Chloride 101 Carbon Dioxide 34 H Anion Gap 10.6 BUN 14 Creatinine 0.4 L GFR Calculation 220.2 H Glucose 101 Calculated Osmolal ity 295 Calcium 8.5 Phosphorus 3.4 Magnesium 2.1 Total Bilirubin 0.3 AST 18 ALT 25 Alkaline Phosphata se 39 L C-Reactive Protein 12.7 H Total Protein 5.5 L Albumin 3.1 L Globulin 2.4 Procalcitonin 0.04 Vancomycin Trough 06/01/20 14:12 WBC RBC Hgb Hct MCV MCH MCHC RDW Plt Count MPV Lymph % (Auto) [facility] % (Auto) Lymph # (Auto) [facility] # (Auto) Total Counted Atypical Lymphs % Absolute Neutrophi ls Segmented Neutroph ils Abs Segm Neuts (Ma n) Band Neutrophils Abs Band Neuts (Ma n) Lymphocytes (Manua l) Monocytes (Manual) Absolute Monocytes Eosinophils (Manua l) Absolute Eosinophi ls Basophils (Manual) Absolute Basophils Platelet Estimate Sodium Potassium Chloride Carbon Dioxide Anion Gap BUN Creatinine GFR Calculation Glucose Calculated Osmolal ity Calcium Phosphorus Magnesium Total Bilirubin AST ALT Alkaline Phosphata se C-Reactive Protein Total Protein Albumin Globulin Procalcitonin Vancomycin Trough 12.6 Vitals: Last Vital Signs Temp 98.6 F 06/02/20 11:44 Pulse 78 06/02/20 11:44 Resp 17 06/02/20 11:44 BP 113/71 06/02/20 11:44 Pulse Ox 95 06/02/20 11:44 Discharge Plan Discharge Patient Disposition: Home Health Service Condition: Stable Prescriptions: New Vitamin C 500 mg Tablet 500 mg PO DAILY 30 Days Qty: 30 RF: 0 potassium chloride 10 mEq Tablet Extended Release 30 meq PO Q12H 30 Days Qty: 180 RF: 0 prednisone 10 mg tablet See Rx Instructions .ROUTE .COMPLEX Qty: 53 RF: 0 doxycycline hyclate 100 mg tablet 100 mg PO BID 14 Days Qty: 28 RF: 0 levofloxacin 750 mg tablet 750 mg PO DAILY 7 Days Qty: 7 RF: 0 Continued aspirin 81 mg tablet,delayed release (DR/EC) 81 mg PO DAILY Qty: 30 RF: 2 atorvastatin 40 mg tablet 40 mg PO BEDTIME Qty: 30 RF: 2 azelastine-fluticasone 137-50 mcg/spray spray,non-aerosol 1 spray INTRANASAL BID 90 Days Qty: 23 RF: 3 Xopenex HFA 45 mcg/actuation HFA aerosol inhaler 2 inh INHALATION Q4H Qty: 15 RF: 2 metoprolol tartrate 25 mg tablet 25 mg PO BID Qty: 60 RF: 2 Daliresp 500 mcg tablet 500 mcg PO DAILY Qty: 30 RF: 2 fenofibrate 160 mg tablet 160 mg PO DAILY Qty: 30 RF: 2 levalbuterol HCl 1.25 mg/3 mL solution for nebulization 1.25 mg INHALATION QID RF: 0 Trelegy Ellipta 100-62.5-25 mcg blister with device 1 inh INHALATION DAILY Qty: 60 RF: 2 furosemide 40 mg tablet 40 mg PO BID 30 Days Qty: 60 RF: 0 Discontinued potassium chloride 10 mEq tablet,ER particles/crystals 10 meq PO BID Qty: 60 RF: 2 Discharge Orders: Discharge Order (Routine); Ordered 06/02/20 Ordered By: Harry Fair Other Ambulatory Orders: Complete Blood Count w/Auto (Routine) Timeframe: 1 Week Location: Determined by Patient Ordered By: Harry Fair Comprehensive Metabolic Panel (Routine) Timeframe: 1 Week Facility: [facility] - Location: Lab - Main Lab Ordered By: Harry Fair [place] [facility] [place] [facility] [facility] [place]Outside] Lakhwinder Amado MD [Physician] - 1 month (fe defecienc anemia, hx of polyps, needs colonoscpy and egf) Stephani Pitts, COMPENSATION AND BENEFITS ADMINISTRATOR-C [Primary Care Provider] - Sania Castillo MD [Physician] - 1 week Discharge Diet: Cardiac Discharge Activity: Resume usual activity Patient Instructions: Cellulitis, COPD, Doxycycline (By mouth), Prednisone (By mouth), Potassium Chloride (By mouth), Ascorbic Acid (Vitamin C) (By mouth), Levofloxacin (By mouth), COPD Stoplight Activity Restrictions/Additional Instructions: -Please continue ambulation -Take antibiotics as prescribed -Continue to monitor cellulitis, if area worsens, swelling worsens go to ER emergency room or primary care as this can be an indicator of a DVT -Please quit smoking -Please use oxygen as prescribed, do not smoke with oxygen on, around oxygen tank - Discharge Attestations Time Spent in Discharge Care*: less than 30 min Quality Metrics Clinical Quality Measures During this hospital stay, did patient experience: None Coding Level of Care Code Acute Cooler Service Supervisor for [facility]am Comprehensive Diagnoses Sepsis A41.9 Respiratory failure with hypoxia J96.21 Chronicity: acute on chronic Acute exacerbation of chronic obstructive airways disease J44.1 Severe chronic obstructive pulmonary disease J44.9 Thrombocytopenia D69.6 Altered mental status R41.82 Hypertension I10 Hypertension type: essential hypertension Hyperlipidemia E78.2 Hyperlipidemia type: mixed hyperlipidemia Cellulitis of right leg L03.115
--- NOTE | 2020-06-02 13:13 | PC.NURSE ---
pt iv removed and intact. pt discharge instruction explained and questions answered. pt taken to surgical services entrance via wheelchair to family member.
== END 2020-06-02 13:17 | disposition home health service (06) | DRG 871 ==
LOC: ER 17:56 → ICU 18:28 → MEDSURG 05-28 13:41
PROVIDERS: Emergency Medicine; Student in an Organized Health Care Education/Training Program; Admitting Provider Student in an Organized Health Care Education/Training Program; PCP Nurse Practitioner; Visit Provider Family Medicine
DX: A41.9 Sepsis, unspecified organism (principal); J15.4 Pneumonia due to other streptococci; I50.31 Acute diastolic (congestive) heart failure; J96.21 Acute and chronic respiratory failure with hypoxia; J96.22 Acute and chronic respiratory failure with hypercapnia; J44.1 Chronic obstructive pulmonary disease with (acute) exacerbation; J44.0 Chronic obstructive pulmonary disease with (acute) lower respiratory infection; L03.115 Cellulitis of right lower limb; Z99.81 Dependence on supplemental oxygen; I11.0 Hypertensive heart disease with heart failure; E78.2 Mixed hyperlipidemia; F17.210 Nicotine dependence, cigarettes, uncomplicated; E66.9 Obesity, unspecified; Z68.39 Body mass index [BMI] 39.0-39.9, adult; Z87.01 Personal history of pneumonia (recurrent); D69.59 Other secondary thrombocytopenia; R41.82 Altered mental status, unspecified; D50.9 Iron deficiency anemia, unspecified; Z79.82 Long term (current) use of aspirin
CPT/HCPCS: 12345; 36415; 36600; 71045; 71275; 73590; 73700; 80053; 80061; 80202; 80306; 80307; 81001; 82436; 82550; 82803; 83036; 83540; 83550; 83605; 83735; 83880; 84100; 84133; 84145; 84300; 84443; 84484; 85007; 85025; 85378; 85610; 85651; 86140; 86403; 87040; 87070; 87077; 87186; 87205; 87426; 87449; 87635; 87641; 87804; 93005; 93926; 93970; 93971; 94640; 94660; 96372; 96375; 97161; 97530; 99283; J0131; J0456; J0696; J1650; J1756; J1940; J2405; J2543; J2920; J2930; J3370; J3490; J7030; J7040; J7050; J7512; J7626; Q9967; S0030

== ENCOUNTER → 2020-06-06 14:27 | Outpatient (BNVA) | payer MEDICARE, MEDICAID, SELFPAY | PROVIDERS: PCP Nurse Practitioner; Visit Provider Nurse Practitioner | DX: L03.115 Cellulitis of right lower limb (principal); J44.1 Chronic obstructive pulmonary disease with (acute) exacerbation | CPT/HCPCS: 80053; 85025 ==

== ENCOUNTER 2020-06-15 10:02 | Outpatient (CLI) | payer MEDICARE, MEDICAID, SELFPAY ==
--- NOTE | 2020-06-15 11:15 | CT_ITS ---
WS: [id number] CT scan of the chest without IV contrast, additional two-dimensional coronal and sagittal reconstruct ion was performed. 06/15/2020 Clinical Data: nodules, hilar adenopathy Comparison: CT chest PE study, 05/25/2020. DLP: 1224.[address] scans at [facility] use at least one of these dose optimization techniques: automat ed exposure control; mA and/or kV adjustment per patient size (includes targeted exams where dose is matched to clinical indication); or iterative reconstruction. Findings: There is a right upper lobe nodule which measures 0.8 cm seen best on axial image 14 of 75. There are other small subpleural nodules unchanged. No masses or effusions are seen. The heart size is normal with no pericardial effusion. No pneumonia or pneumothorax is seen. Bilateral emphysematous changes are present. The pulmonary arterial system a nd thoracic aorta demonstrate no abnormalities or dilatations. There is no axillary or significant me diastinal adenopathy. The upper abdomen is not remarkable. Minimal degenerative change of the thoracic vertebral bodies is seen. CT/CT chest wo con [id number] Impression: 1. Measurement of the right upper lobe nodule was reviewed on the prior exam an d the nodule has not changed in size or configuration. 2. Recommend repeat CT chest in 6 months. 3. No change in small subpleural nodules and bilateral emphysema.
== END 2020-06-15 10:03 | disposition home or self-care (01) ==
PROVIDERS: PCP Nurse Practitioner; Visit Provider Internal Medicine
DX: R91.1 Solitary pulmonary nodule (principal); R59.9 Enlarged lymph nodes, unspecified
CPT/HCPCS: 71250

== ENCOUNTER → 2020-11-14 11:02 | Outpatient (BNVA) | payer MEDICARE, MEDICAID, SELFPAY | PROVIDERS: PCP Nurse Practitioner; Visit Provider Nurse Practitioner | DX: I10 Essential (primary) hypertension (principal); R73.9 Hyperglycemia, unspecified; E78.2 Mixed hyperlipidemia; L03.115 Cellulitis of right lower limb; I50.9 Heart failure, unspecified; J30.89 Other allergic rhinitis | CPT/HCPCS: 80053; 80061; 83036; 85025 ==

== ENCOUNTER 2020-12-25 12:13 | Outpatient (CLI) | payer MEDICARE, MEDICAID, SELFPAY ==
--- NOTE | 2020-12-25 13:00 | CT_ITS ---
WS: [id number] CT CHEST WITHOUT INTRAVENOUS CONTRAST HISTORY: R91.1 - Solitary pulmonary nodule TECHNIQUE: Contiguous 5 mm axial imaging performed on the thorax. Coronal and sagittal reformats are submitted. All CT scans at [facility] use at least one of these dose optimization techniq ues: automated exposure control; mA and/or kV adjustment per patient size (includes targeted exams wh ere dose is matched to clinical indication); or iterative reconstruction. CONTRAST: None DLP: 730.76 mGy-cm. COMPARISON: 06/15/2020, 10/28/2016 and 05/25/2020. Lungs and central airway: Moderate emphysema and changes. There are numerous RIGHT upper lobe subcent imeter pulmonary nodules. These nodules have not significantly increased in size or number since 2017 . No new nodule or pneumonia. Pleura: Normal. No pleural effusion. Heart and pericardium: Normal size heart with no pericardial effusion. Mediastinum and eliana: Subcentimeter mediastinal and hilar lymph nodes. Some these lymph nodes contain calcifications. Vessels: Dilated pulmonary artery measuring up to 3.3 cm. Mild atherosclerosis aorta. Chest wall and lower neck: No soft tissue masses. Upper abdomen: Negative. Osseous structures: No destructive process. CT/CT chest wo con [id number] IMPRESSION: 1. No increase in size and number of the RIGHT upper lobe subcentimeter pulmon angelita nodules. These nodules have been stable since 10/28/2016. 2. Indeterminate but stable mediastinal and hilar lymphadenopathy since 2017. 3. Chronic emphysema. 4. Mild pulmonary hypertension.
== END 2020-12-25 12:14 | disposition home or self-care (01) ==
LOC: RADWPI 12:17
PROVIDERS: PCP Nurse Practitioner; Visit Provider Nurse Practitioner
DX: R91.1 Solitary pulmonary nodule (principal); J43.9 Emphysema, unspecified; I27.20 Pulmonary hypertension, unspecified
CPT/HCPCS: 71250

== ENCOUNTER → 2021-05-07 13:35 | Outpatient (BNVA) | payer MEDICARE, MEDICAID, SELFPAY | PROVIDERS: PCP Nurse Practitioner; Visit Provider Internal Medicine Critical Care Medicine | DX: I50.9 Heart failure, unspecified (principal) | CPT/HCPCS: 80048 ==

== ENCOUNTER → 2021-05-14 11:17 | Outpatient (BNVA) | payer MEDICARE, MEDICAID, SELFPAY | PROVIDERS: PCP Nurse Practitioner; Visit Provider Internal Medicine Critical Care Medicine | DX: I27.81 Cor pulmonale (chronic) (principal); J44.9 Chronic obstructive pulmonary disease, unspecified; J96.91 Respiratory failure, unspecified with hypoxia; J96.92 Respiratory failure, unspecified with hypercapnia; F17.200 Nicotine dependence, unspecified, uncomplicated; R91.1 Solitary pulmonary nodule | CPT/HCPCS: 80048 ==

== ENCOUNTER → 2021-05-28 14:47 | Outpatient (BNVA) | payer MEDICARE, MEDICAID, SELFPAY | PROVIDERS: PCP Nurse Practitioner; Visit Provider Nurse Practitioner | DX: E78.2 Mixed hyperlipidemia (principal); I50.9 Heart failure, unspecified; J30.89 Other allergic rhinitis | CPT/HCPCS: 80053; 80061 ==

== ENCOUNTER → 2021-11-26 12:41 | Outpatient (BNVA) | payer MEDICARE, MEDICAID, SELFPAY | PROVIDERS: PCP Nurse Practitioner; Visit Provider Internal Medicine Critical Care Medicine | DX: I27.81 Cor pulmonale (chronic) (principal); E78.2 Mixed hyperlipidemia; F17.210 Nicotine dependence, cigarettes, uncomplicated; J44.9 Chronic obstructive pulmonary disease, unspecified; J96.91 Respiratory failure, unspecified with hypoxia; J96.92 Respiratory failure, unspecified with hypercapnia; R91.1 Solitary pulmonary nodule; E78.5 Hyperlipidemia, unspecified; I10 Essential (primary) hypertension | CPT/HCPCS: 80048; 80061; 81003; 99214 ==

== ENCOUNTER → 2022-06-20 11:55 | Outpatient (BNVA) | payer MEDICARE, MEDICAID, SELFPAY | PROVIDERS: PCP Nurse Practitioner; Visit Provider Nurse Practitioner | DX: I10 Essential (primary) hypertension (principal); R73.9 Hyperglycemia, unspecified; E78.2 Mixed hyperlipidemia; J30.89 Other allergic rhinitis; J96.91 Respiratory failure, unspecified with hypoxia; I50.9 Heart failure, unspecified; Z23 Encounter for immunization | CPT/HCPCS: 80053; 80061; 83036 ==

== ENCOUNTER → 2022-10-17 13:20 | Outpatient (BNVA) | payer MEDICARE, MEDICAID, SELFPAY | PROVIDERS: PCP Nurse Practitioner; Visit Provider Nurse Practitioner | DX: E78.2 Mixed hyperlipidemia (principal); I10 Essential (primary) hypertension; J44.9 Chronic obstructive pulmonary disease, unspecified; I50.9 Heart failure, unspecified; R91.1 Solitary pulmonary nodule | CPT/HCPCS: 80053; 80061; 84443; 85025 ==

== ENCOUNTER 2022-11-07 13:01 | Outpatient (CLI) | payer MEDICARE, MEDICAID, SELFPAY ==
--- NOTE | 2022-11-07 13:00 | CT_ITS ---
WS: [id number] CT chest wo con [id number] HISTORY: R91.1 - Solitary pulmonary nodule TECHNIQUE: Axial imaging performed through the thorax. Coronal and sagittal reformats are submitted. All CT scans at [facility] use at least one of these dose optimization techniques: automated exposure control; mA and/or kV adjustment per patient size (includes targeted exams where dose is mat ched to clinical indication); or iterative reconstruction. CONTRAST: None DLP: 382.21 mGy.cm COMPARISON: 12/25/2020, 10/28/2016 Lungs and central airway: Severe hyperexpansion with central lobular emphysema and interstitial fibro sis. Patient has known multiple bilateral pulmonary nodules which are stable. The largest is 8 mm in the RIGHT upper lobe. There is a new 8 mm subpleural nodule in the posterior LEFT upper lobe. Majorit y of the nodules are stable. Pleura: Normal. No pleural effusion. Heart and pericardium: Normal size heart with no pericardial effusion. Mediastinum and eliana: No mediastinum or hilar adenopathy. Vessels: Mild atherosclerosis aorta. No aneurysm. Normal size pulmonary artery. Chest wall and lower neck: No soft tissue masses. Upper abdomen: Hepatic steatosis. No adrenal mass. Osseous structures: No destructive process. CT/CT chest wo con [id number] IMPRESSION: 1. Severe centrilobular emphysema and interstitial fibrosis. 2. New LEFT upper lobe 8 mm subpleural nodule. Recommend follow-up chest CT in 6 months. 3. Numerous right-sided pulmonary nodules are stable. Long-term stability sinc e 2017. Minimal manager exchange several prior years. Change in size can be related to volume averaging.
== END 2022-11-07 13:02 | disposition home or self-care (01) ==
LOC: RAD 13:07
PROVIDERS: PCP Nurse Practitioner; Visit Provider Nurse Practitioner
DX: J44.9 Chronic obstructive pulmonary disease, unspecified (principal); R91.1 Solitary pulmonary nodule
CPT/HCPCS: 71250

== ENCOUNTER 2023-01-28 02:12 | Inpatient (IN) | payer MEDICARE, MEDICAID, SELFPAY ==
[2023-01-28] VITALS (53 sets, daily range): BP systolic 103–143; BP diastolic 56–105; PULSE 69–107; RESP 5–33; TEMP 36.1–37; O2SAT 84–98; BMI 32.5; BMI 29.7
--- NOTE | 2023-01-28 02:16 | XRR_ITS ---
PROCEDURE INFORMATION: Exam: XR Chest Exam date and time: 01/28/2023 2:20 AM Age: 62 years old Clinical indication: Cough and shortness of breath; Patient HX: Cough with SOB and hypoxia. History of copd and chf. TECHNIQUE: Imaging protocol: Radiologic exam of the chest. Views: 1 view. Total images: 986 COMPARISON: CT chest wo con [id number] 11/07/2022 1:23 PM FINDINGS: Lungs: Nonspecific mild left lung base opacity favors atelectasis or pneumonia. Pleural spaces: Unremarkable. No pleural effusion. No pneumothorax. Heart/Mediastinum: Unremarkable. No cardiomegaly. Bones/joints: Unremarkable. XR/XR chest 1V portable [id number] IMPRESSION: Nonspecific mild left lung base opacity favors atelectasis or pneumonia.
--- NOTE | 2023-01-28 02:18 | ECG_ITS ---
[facility] Test Date: 2023-01-28 Pat Name: Conrad Ramirez (Dale) Department: Room: [facility] Gender: Male Hand I Cutter: : 1960 Requested By: Nicki Monzon Order Number: [id number] Reading MD: Ashlyn Maxwell M.D. Measurements Intervals [place] Rate: 82 P: 76 [place]: 154 QRS: 87 QRSD: 91 T: 74 QT: 347 QTc: 407 Interpretive Statements SINUS RHYTHM WITH OCCASIONAL ECTOPIC PREMATURE COMPLEXES Compared to ECG 05/25/2020 16:01:05 Sinus tachycardia no longer present T-wave abnormality no longer present Electronically Signed On 01-28-2023 16:24:53 CDT by Ashlyn Maxwell M.D. [id number]
--- NOTE | 2023-01-28 02:24 | W.ED.SOB ---
HPI - SOB/Dyspnea General: Chief Complaint: Shortness of Breath/Dyspnea Stated Complaint: SOB Time Seen by Provider: 01/28/23 02:13 Source: patient and EMS Mode of arrival: EMS Limitations: no limitations History of Present Illness: HPI Narrative: 62-year-old male with a history of CHF along with COPD wears 4 L oxygen at baseline he has had increasing shortness of breath over the last 2 to 3 days called EMS EMS states when they arrived he was in the 70s on his 4 L of given breathing treatment along with Solu-Medrol but turned him up to 6 L he is still on 6 L here he is able speak in 5-6 word sentences does have respiratory distress he denies any pain or fever He does have some confusion here as well but able answer most my questions appropriatel. Associated symptoms: Deny abdominal pain, chest pain, fever(s), nausea or vomiting Review of Systems Const: Denies: fever(s), chills or change in appetite ENMT: Denies: throat pain or dental pain Card: Denies: chest pain Resp: Reports: dyspnea GI: Denies: abdominal pain, nausea, vomiting or diarrhea : Denies: dysuria Musc: Denies: neck pain or back pain Skin/Breast: Denies: rash Neuro: Denies: headache(s) PFSH ED PFSH: Medical History CHF (congestive heart failure) Environmental and seasonal allergies Hyperlipidemia Hypertension Severe chronic obstructive pulmonary disease Surgical History History of colonoscopy with polypectomy 2015 Hx of inguinal hernia surgery Family History Brother Diabetes Social History Smoking and tobacco status: current every day smoker cigarettes Packs smoked per day: 1 Years cigarettes smoked: 48 [ Other cigarette details: Hx of 2PPD, started at age 13] Quit status (tobacco): considering quitting Second hand smoke exposure: Yes Smoking risk assessment/counseling performed?: Yes Alcohol intake: never Desire information about alcohol rehabilitation?: No Counseling given: No Substance/Drug Use: never Desire information about substance/drug rehabilitation?: No Counseling given: No Adopted: No Caregiver/support person: No Lives independently: Yes Household members: children Housing: House Marital status: Single service: No Current occupational status: disabled Do you think of yourself as: Straight/Heterosexual Current gender identity: Male Physical Exam Const: COMMON NORMALS: patient oriented x3 GENERAL APPEARANCE: in distress, disheveled and ill appearing HENMT: COMMON NORMALS: normocephalic and atraumatic HEAD & SCALP: normocephalic and atraumatic Eye: COMMON NORMALS: Equal, round and reactive pupils present and EOMs intact bilaterally PUPIL: Yes Equal, round and reactive pupils present Neck/C-Spine: COMMON NORMALS: full ROM and supple Chest: COMMONS NORMALS: normal inspection of the chest and normal palpation of entire chest wall Resp: EFFORT & INSPECTION: Yes respiratory distress AUSCULTATION: rales and wheezes Cardio: COMMON NORMALS: regular rate, regular rhythm and No murmurs present (Cardio) RATE: regular rate RHYTHM: regular rhythm GI: COMMON NORMALS: Normal to inspection, nondistended, normoactive bowel sounds present, Soft to palpation, non-tender and no masses PALPATION: Yes Soft to palpation Extremity: COMMON NORMALS: normal to inspection and full ROM Neuro: COMMON NORMALS: patient oriented x3, moves all extremities and no focal motor deficits Psych: COMMON NORMALS: mental status grossly normal, Normal thought process present and cooperative THOUGHT PROCESS: Normal thought process present Skin: COMMON NORMALS: no rashes or lesions noted and no wounds GENERAL SKIN EXAM: no rashes or lesions noted Course Vital Signs: Vital signs: Vital Signs Temperature 97.8 F 01/28/23 02:17 Pulse Rate 72 01/28/23 03:58 Respiratory Rate 26 H 01/28/23 02:58 Blood Pressure 126/73 01/28/23 03:58 Pulse Oximetry 94 01/28/23 04:06 Oxygen Delivery Me thod BiPAP 01/28/23 04:06 Oxygen Flow Rate 6 01/28/23 02:17 Fraction of Inspir ed Oxygen 40 01/28/23 04:06 MDM - SOB/Dyspnea Medical Decision Making Patient presents here with shortness of breath he does have hypercapnia. His CO2 here is improved on BiPAP he still is lethargic we will continue BiPAP him patient was seen in the ER by Dr. Rebolledo will admit the ICU at this time no signs of pneumonia. Medical Records I reviewed the patient's medical records. Lab Data I reviewed the patient's lab results. 01/28/23 02:33 01/28/23 02:33 Labs/Radiology: Laboratory Results WBC 7.6 10^3/uL (4.0-10.0) 01/28/23 02:33 RBC 4.44 10^6/uL (4.1-5.3) 01/28/23 02:33 Hgb 12.0 g/dL (11.7-16.6) 01/28/23 02:33 Hct 42.2 % (42.0-52.0) 01/28/23 02:33 MCV 95.0 fl (80-94) H 01/28/23 02:33 MCH 27.0 pg (28.0-34.0) L 01/28/23 02:33 MCHC 28.4 g/dL (30.0-36.0) L 01/28/23 02:33 RDW 13.5 % (12.1-15.1) 01/28/23 02:33 Plt Count 86 10^3/cmm (130-400) L 01/28/23 02:33 MPV 11.9 fL (7.4-10.4) H 01/28/23 02:33 Neut % (Auto) 80.3 % 01/28/23 02:33 Lymph % (Auto) 11.7 % 01/28/23 02:33 [place] % (Auto) 7.3 % 01/28/23 02:33 Eos % (Auto) 0.3 % 01/28/23 02:33 Baso % (Auto) 0.3 % 01/28/23 02:33 Neut # (Auto) 6.12 10^3/uL (1.8-7.7) 01/28/23 02:33 Lymph # (Auto) 0.9 10^3/uL (0.8-4.8) 01/28/23 02:33 [place] # (Auto) 0.6 10^3/uL (0.2-0.9) 01/28/23 02:33 Eos # (Auto) 0.0 10^3/uL (0.0-0.8) 01/28/23 02:33 Baso # (Auto) 0.0 10^3/uL (0.0-0.1) 01/28/23 02:33 Nucleated RBC % (auto) 0 % 01/28/23 02:33 Nucleated RBCs # 0.0 /100WBC 01/28/23 02:33 PT 12.70 SECONDS (12.1-14.9) 01/28/23 02:33 INR 0.93 (0.8-1.2) 01/28/23 02:33 Specimen Type Arterial 01/28/23 03:36 Sample Site Radial, left 01/28/23 03:36 ABG pH 7.34 (7.35-7.45) L 01/28/23 03:36 ABG pCO2 103.0 mmHg (35-45) H* 01/28/23 03:36 ABG pO2 58.5 mmHg (80.0-100.0) L 01/28/23 03:36 ABG HCO3 55.0 mmol/L (22-26) H 01/28/23 03:36 ABG Base Excess 23.5 mmol/L (-2.0-2.0) H 01/28/23 03:36 Miguel Angel Test Pos 01/28/23 03:36 Hematocrit 38.4 % (42-52) L 01/28/23 03:36 O2 Delivery Device Bipap 01/28/23 03:36 O2 Liters/Min 6.0 % 01/28/23 02:39 FiO2 40.0 % 01/28/23 03:36 Senior Software Engineering Manager ID [email or web address] 01/28/23 03:36 Sodium 141 mmol/L (136-145) 01/28/23 02:33 Potassium 3.8 mmol/L (3.5-5.1) 01/28/23 02:33 Chloride 89 mmol/L (98-107) L 01/28/23 02:33 Carbon Dioxide 49 mmol/L (22-29) H* 01/28/23 02:33 Anion Gap 6.8 (5-19) 01/28/23 02:33 BUN 14 mg/dL (8-23) 01/28/23 02:33 Creatinine 0.2 mg/dL (0.7-1.2) L 01/28/23 02:33 GFR Calculation 485.1 mL/min (90-130) H 01/28/23 02:33 Glucose 114 mg/dL (65-115) 01/28/23 02:33 Calculated Osmolality 293 mOsm/kg (285-295) 01/28/23 02:33 Calcium 8.5 mg/dL (8.5-10.5) 01/28/23 02:33 Total Bilirubin 0.3 mg/dL (0.15-1.2) 01/28/23 02:33 AST 12 U/L (0-40) 01/28/23 02:33 ALT 10 U/L (0-41) 01/28/23 02:33 Alkaline Phosphatase 55 U/L (40-130) 01/28/23 02:33 Troponin T Baseline 58 ng/L (0-15) H 01/28/23 02:33 NT-Pro-B Natriuret Pep 70 pg/mL (0-125) 01/28/23 02:33 Total Protein 5.9 g/dL (6.6-8.7) L 01/28/23 02:33 Albumin 3.6 g/dL (3.5-5.2) 01/28/23 02:33 Globulin 2.3 g/dL (1.3-4.6) 01/28/23 02:33 Urine Color Yellow (Yellow) 01/28/23 03:04 Urine Appearance Clear (CLEAR) 01/28/23 03:04 Urine pH 6 (5-7) 01/28/23 03:04 Ur Specific [place] 1.025 (1.005-1.030) 01/28/23 03:04 Urine Protein 1+ (Negative) H 01/28/23 03:04 Urine Glucose (UA) Norm (Normal) 01/28/23 03:04 Urine Ketones 1+ (Negative) H 01/28/23 03:04 Urine Blood Neg (Negative) 01/28/23 03:04 Urine Nitrate Negative (Negative) 01/28/23 03:04 Urine Bilirubin Neg (Negative) 01/28/23 03:04 Urine Urobilinogen 4 mg/dL (Negative) H 01/28/23 03:04 Ur Leukocyte Esterase Negative (Negative) 01/28/23 03:04 Urine RBC None /hpf (0-2) 01/28/23 03:04 Urine WBC None /hpf (0-5) 01/28/23 03:04 Ur Squamous Epith Cells 0-4 /hpf (0-5) H 01/28/23 03:04 Amorphous Sediment Not Reportable 01/28/23 03:04 Urine Bacteria Trace /hpf (NONE) 01/28/23 03:04 Urine Mucus 1+ /hpf 01/28/23 03:04 SARS-CoV-2 Ag (Rapid) negative (Negative) 01/28/23 02:32 EKG Data EKG 1: I personally reviewed and interpreted this EKG as follows: EKG Interpretation Date: 01/28/23 EKG interpretation time: 02:18 Interpretation: nsr hr [address] or t wave abnormalities qrs 91 qtc 386 Critical Care Time Critical Care Time: Critical Care Time: Yes Total Critical Care Time: 45 Attestation: The high probability of a clinically significant, sudden or life threatening deterioration of the patient's resp system(s) required my full and direct attention, intervention and personal management. The critical care time is as shown. This time is in addition to time spent performing any reported procedures but includes the following: [x] Data and vital sign review and interpretation [x] Patient assessment, examination and intervention [x] Documentation [x] Medication orders and management Discharge Plan Discharge Patient Disposition: Admitted As Inpatient Admit Provider: David Bond Clinical Impression: Respiratory failure with hypoxia and hypercapnia, Acute exacerbation of chronic obstructive airways disease Condition: Stable Coding Level of Care Code ED Medical Massage Therapist for Katelyn Duncan
[2023-01-28 02:38] LABS: Basophils % 0.3 %; Eosinophils % 0.3 %; Hematocrit 42.2 % (42.0-52.0); Lymphocytes # 0.9 10^3/uL (0.8-4.8); Lymphocytes % 11.7 %; Mean Corpuscular HGB Conc 28.4 g/dL (30.0-36.0); Mean Platelet Volume 11.9 fL (7.4-10.4); Monocytes # 0.6 10^3/uL (0.2-0.9); Monocytes % 7.3 %; Neutrophils # 6.12 10^3/uL (1.8-7.7); Neutrophils % 80.3 %; Nucleated Red Blood Cells % 0 %; Platelet Count 86 10^3/cmm (130-400); Red Blood Count 4.44 10^6/uL (4.1-5.3); Red Cell Distribution Width 13.5 % (12.1-15.1); White Blood Count 7.6 10^3/uL (4.0-10.0)
[2023-01-28 02:45] LABS: Arterial Blood Gas Hematocrit 37.9 % (42-52); Base Excess ABG 22.9 mmol/L (-2.0-2.0); Blood Gas Allen Test Pos; Blood Gas Sample Site Radial, left; Blood Gas Sample Type Arterial; HCO3 ABG 55.1 mmol/L (22-26); PO2 ABG 49.4 mmHg (80.0-100.0)
[2023-01-28 02:46] LABS: Oxygen Device BIPAP
[2023-01-28 02:48] LABS: INR 0.93 (0.8-1.2)
[2023-01-28 02:55] LABS: SARS Covid-2 Antigen negative (Negative)
[2023-01-28 03:02] LABS: Troponin(5th) Baseline 58 ng/L (0-15)
[2023-01-28 03:09] LABS: Alanine Aminotransferase 10 U/L (0-41); Albumin Level 3.6 g/dL (3.5-5.2); Alkaline Phosphatase 55 U/L (40-130); Anion Gap 6.8 (5-19); Aspartate Amino Transferase 12 U/L (0-40); Blood Urea Nitrogen 14 mg/dL (8-23); Calcium 8.5 mg/dL (8.5-10.5); Chloride 89 mmol/L (98-107); Globulin 2.3 g/dL (1.3-4.6); Glomerular Filtration Rate 485.1 mL/min (90-130); Glucose 114 mg/dL (65-115); NT Pro B Type Natriuretic Pept 70 pg/mL (0-125); Osmolality Calculated 293 mOsm/kg (285-295); Potassium 3.8 mmol/L (3.5-5.1); Sodium 141 mmol/L (136-145); Total Bilirubin 0.3 mg/dL (0.15-1.2); Total Protein 5.9 g/dL (6.6-8.7)
[2023-01-28 03:14] LABS: Carbon Dioxide 49 mmol/L (22-29)
[2023-01-28 03:16] LABS: Urine Color Yellow (Yellow)
[2023-01-28 03:17] LABS: Bilirubin Urine Neg (Negative); Blood Urine Neg (Negative); Glucose Urine UA Norm (Normal); Ketones Urine 1+ (Negative); Leukocyte Esterase Urine Negative (Negative); Nitrate Urine Negative (Negative); Protein Urine 1+ (Negative); Specific Gravity, Urine 1.025 (1.005-1.030); Urine Appearance Clear (CLEAR); Urobilinogen Urine 4 mg/dL (Negative); pH Urine 6 (5-7)
[2023-01-28 03:18] LABS: Add Urine Microscopic? YES; Bacteria Urine TRACE /hpf; Mucus Urine 1+ /hpf; Squamous Epithelial Cell Urine 0-4 /hpf (0-5)
[2023-01-28] MEDS: FUROsemide 10 mg/mL SDV 4mL 40 MG IVP (03:23)
[2023-01-28 03:44] LABS: ABG PH Result 7.34 (7.35-7.45); Arterial Blood Gas Hematocrit 38.4 % (42-52); Base Excess ABG 23.5 mmol/L (-2.0-2.0); Blood Gas Allen Test Pos; Blood Gas Sample Site Radial, left; Blood Gas Sample Type Arterial; Oxygen Device BIPAP; PO2 ABG 58.5 mmHg (80.0-100.0)
[2023-01-28] MEDS: albuterol 2.5 mg/3 mL Neb INHALATION (04:05)
--- NOTE | 2023-01-28 04:16 | ECG_ITS ---
[facility] Test Date: 2023-01-28 Pat Name: Conrad Ramirez (Dale) Department: Room: [facility] Gender: Male Legal Consultant: : 1960 Requested By: Nikci Monzon Order Number: [id number] Madalyn MD: Ashlyn Maxwell M.D. Measurements Intervals [place] Rate: 99 P: 86 HI: 163 QRS: 86 QRSD: 92 T: 80 QT: 321 QTc: 414 Interpretive Statements SINUS RHYTHM WITH OCCASIONAL VENTRICULAR PREMATURE COMPLEXES POSSIBLE RIGHT ATRIAL ENLARGEMENT [0.25mV P-WAVE] POSSIBLE LEFT ATRIAL ENLARGEMENT [-0.1mV P-WAVE IN V1/V2] Compared to ECG 01/28/2023 02:18:59 Ventricular premature complex(es) now present Electronically Signed On 01-28-2023 16:29:41 CDT by Ashlyn Maxwell M.D. [id number]
--- NOTE | 2023-01-28 04:16 | P.HP_ITS ---
Providers/Chief Complaint Admitting Physician: David Bond MD Primary Care Provider: EMMIE Freedman Chief Complaint: SOB History of Present Illness Conrad Ramirez (Dale) is a 62 year old male presenting to the emergency department from EMS with shortness of breath for at least 2 to 3 days. He received Solu-Medrol during transport as well as a nebulized treatment. The emergency department physician reports he had some confusion on arrival here. He cannot give an adequate history for me secondary to continued confusion/CO2 narcosis. I can get him to withdraw slightly, and groan with stimulation. Respiratory alerts me that they have just changed settings on AVAPS to try to improve his CO2. Review of Systems General: Reports: ROS unobtainable due to medical condition Medications/Allergies Home Medications Medication Instructions Recorded Confirmed Last Taken Type compressor, for nebulizer #1 ea 05/31/21 10/17/22 Unknown Rx levalbuterol tartrate 45 2 inh inhalation Q4H #15 grams 07/06/21 10/17/22 Un known Rx mcg/actuation aerosol inhaler (Xopenex HFA) formoterol fumarate 20 mcg/2 mL See Rx Instructions .Route 10/01/21 10/17/22 Unknown Rx solution for nebulization .COMPLEX #60 vials (Perforomist) aspirin 81 mg tablet,delayed 81 mg PO DAILY #30 tabs 11/28/21 10/17/22 Unknown Rx release azelastine-fluticasone 137 mcg-50 1 spray intranasal BID #23 grams 06/20/22 10/17/22 Unknown Rx mcg/spray nasal spray levalbuterol HCl 1.25 mg/3 mL 1.25 mg (3 mL) inhalation QID PRN 06/20/22 10/17/22 Unknown Rx solution for nebulization shortness of breath or wheezing #300 mL metolazone 2.5 mg tablet 2.5 mg PO .QOD 60 days #30 tabs 06/20/22 10/17/22 Un known Rx budesonide 0.5 mg/2 mL suspension 0.5 mg (2 mL) inhalation Q12H #60 10/09/22 10/17/22 Unknown Rx for nebulization vials revefenacin 175 mcg/3 mL solution 175 mcg (3 mL) inhalation DAILY 10/09/22 10/17/22 Unknown Rx for nebulization (Yupelri) #30 vials atorvastatin 40 mg tablet 40 mg PO BEDTIME #30 tabs 10/17/22 10/17/22 Unknown Rx furosemide 40 mg tablet 40 mg PO BID 30 days #60 tabs 10/17/22 10/17/22 Unknown Rx metoprolol tartrate 25 mg tablet 12.5 mg PO BID #30 tabs 10/17/22 10/17/22 Unknown Rx mupirocin 2 % topical ointment 1 applic topical BID #22 grams 10/17/22 10/17/22 Unknown Rx potassium chloride 20 mEq See Rx Instructions PO .COMPLEX 10/17/22 10/17/22 Unknown Rx tablet,extended release #80 tabs sacubitril 24 mg-valsartan 26 mg 1 tab PO BID #60 tabs 10/17/22 10/17/22 Unknown Rx tablet (Entresto) azithromycin 250 mg tablet 250 mg PO .COMPLEX 90 days #45 tabs 11/28/22 Unknown Rx Allergies Allergy/AdvReac Type Severity Reaction Status Date / Time celecoxib [From Celebrex] Allergy Unknown Verified 10/17/22 13:15 simvastatin Allergy Unknown Verified 10/17/22 13:15 PFSH Acute PFSH: Medical History CHF (congestive heart failure) Environmental and seasonal allergies Hyperlipidemia Hypertension Severe chronic obstructive pulmonary disease Surgical History History of colonoscopy with polypectomy 2015 Hx of inguinal hernia surgery Family History Brother Diabetes Social History Smoking and tobacco status: current every day smoker cigarettes Packs smoked per day: 1 Years cigarettes smoked: 48 [ Other cigarette details: Hx of 2PPD, started at age 13] Quit status (tobacco): considering quitting Second hand smoke exposure: Yes Smoking risk assessment/counseling performed?: Yes Alcohol intake: never Desire information about alcohol rehabilitation?: No Counseling given: No Substance/Drug Use: never Desire information about substance/drug rehabilitation?: No Counseling given: No Adopted: No Caregiver/support person: No Lives independently: Yes Household members: children Housing: House Marital status: Single service: No Current occupational status: disabled Do you think of yourself as: Straight/Heterosexual Current gender identity: Male Vitals/I&O/Wt Last Vital Signs Temp 97.8 F 01/28/23 02:17 Pulse 72 01/28/23 03:58 Resp 26 H 01/28/23 02:58 BP 126/73 01/28/23 03:58 Pulse Ox 94 01/28/23 04:06 O2 Del Method BiPAP 01/28/23 04:06 O2 Flow Rate 6 01/28/23 02:17 FiO2 40 01/28/23 04:06 Weight last 48 hrs Weight 108.862 kg Physical Exam Narrative: General exam is a white male, groans with stimulation, currently on AVAPS HEENT: Atraumatic and normocephalic. Oropharynx not examined as he is currently on AVAPS Neck is supple no lymphadenopathy thyromegaly Cardiovascular regular rate and rhythm, no murmur, heart sounds distant Lungs diminished breath sounds bilaterally. No wheezes or crackles Abdomen is soft. Positive bowel sounds. No obvious organomegaly exam deferred Extremities no cyanosis clubbing. 1+ edema bilaterally. Skin no rash Neuro no focal deficits, diminished responsiveness is noted. Urinary Catheter Management: Lee: Cath Placed During This Visit: yes Urinary Catheter Date of Insertion: 01/28/23 Urinary Catheter Time of Insertion: 03:08 Data 01/28/23 02:33 01/28/23 02:33 Other Labs: Chest x-ray by my read demonstrates no obvious infiltrate, COPD Last ABG demonstrates pH 7.34, PCO2 of 103, PO2 of 58 that was done on BiPAP prior to current changes being done Calcium 8.5 LFTs normal Troponin 58 BNP 70 Urinalysis negative EKG demonstrates normal sinus rhythm, borderline right axis deviation, otherwise no acute changes per my read. Rapid COVID-negative A&P Assessment and plan (1) Respiratory failure with hypoxia and hypercapnia: Patient presents with acute on chronic hypoxic and hypercarbic respiratory failure He has been changed to AVAPS settings Secondary to level of consciousness, will place in ICU Continue steroids in the form of dexamethasone currently 6 mg IV every 24 hours DuoNeb every 4 hours Budesonide twice daily Try to keep O2 saturations 88 to 92%, especially if AVAPS is discontinued Levaquin IV (2) Acute exacerbation of chronic obstructive airways disease: See above (3) Cor pulmonale: Patient with longstanding right heart failure from pulmonary hypertension. Last echocardiogram was several years ago, of severely poor quality, demonstrating preserved EF. BNP is not elevated today. Will evaluate for further diuretics, continuation of diuretics when respiratory status is improving and he is able to take p.o. N.p.o. for now. CBC, CMP in the morning (4) Tobacco dependency: Encourage abstinence (5) Thrombocytopenia: Continue to monitor. Appears to be chronic and stable. Check ammonia level to evaluate for potential liver disease considering his level of consciousness. CBC in the morning Plan Multiple other medical problems as outlined in his past medical history Full code currently. Lovenox for DVT prophylaxis Protonix for GI prophylaxis Med rec as soon as possible. Attestations Medical Necessity Statement*: Will require greater than 2 midnight stay for severe COPD exacerbation and respiratory failure Diagnoses Respiratory failure with hypoxia and hypercapnia J96.91; J96.92 Acute exacerbation of chronic obstructive airways disease J44.1 Cor pulmonale I27.81 Tobacco dependency F17.200 Thrombocytopenia D69.6 Time Spent (min) 53
--- NOTE | 2023-01-28 04:17 | PC.NURSE ---
Report called to PIERRE Sierra in ICU.
[2023-01-28] MEDS: ipratropium-albuterol 3 mL Neb INHALATION ×6 (04:51→23:35)
[2023-01-28 04:56] LABS: Troponin 5 2HR 56.37 ng/L (0-15)
[2023-01-28 05:00] LABS: Troponin 5 2HR Delta -1.63 ABS# (0-10)
[2023-01-28 05:02] LABS: ABG PH Result 7.35 (7.35-7.45); Blood Gas Allen Test Pos; Blood Gas Sample Site Radial, left; Blood Gas Sample Type Arterial
[2023-01-28 05:23] LABS: Ammonia 56 umol/L (16-60)
[2023-01-28] MEDS: dexamethasone 10 mg/mL INJ 6 MG IVP (06:19)
[2023-01-28] MEDS: levofloxacin-dextrose 5 % 750 MG/150 ML PREMIX 100 MG IV (06:19)
[2023-01-28 06:57] LABS: Arterial Blood Gas Hematocrit 39.7 % (42-52); Base Excess ABG 24.1 mmol/L (-2.0-2.0); HCO3 ABG 55.7 mmol/L (22-26); Oxygen Device BIPAP; PO2 ABG 66.3 mmHg (80.0-100.0)
--- NOTE | 2023-01-28 07:20 | P.PN_ITS ---
Subjective Subjective: Opens eyes to verbal stimuli. Still somewhat slow to respond. Certainly more alert than yesterday. Medications: Reviewed: Yes Vitals/I&O/Wt Last Vital Signs Temp 97.0 F L 01/28/23 04:41 Pulse 69 01/28/23 06:00 Resp 20 H 01/28/23 06:00 BP 103/57 01/28/23 06:00 Pulse Ox 92 01/28/23 06:00 O2 Del Method BiPAP 01/28/23 05:00 O2 Flow Rate 6 01/28/23 02:17 FiO2 40 01/28/23 06:00 01/27/23 01/28/23 01/28/23 22:59 06:59 14:59 Output Total 1200 / 1200 Balance -1200 / -1200 Weight last 48 hrs Weight 99.5 kg Weight 108.862 kg Physical Exam Narrative: General exam is a white male, opens eyes to verbal stimuli, on BiPAP Neck is supple no lymphadenopathy thyromegaly Cardiovascular regular rate and rhythm, no murmur, heart sounds distant Lungs diminished breath sounds bilaterally. No wheezes or crackles Abdomen is soft. Positive bowel sounds. No obvious organomegaly Extremities no cyanosis clubbing. 1+ edema bilaterally. Neuro no focal deficits Urinary Catheter Management: Lee: Cath Placed During This Visit: yes Reason for Continuing Indwelling Catheter: Accurate Measurement of Urinary Output in Critically Ill Patients Urinary Catheter Date of Insertion: 01/28/23 Urinary Catheter Time of Insertion: 03:08 Data 01/28/23 02:33 01/28/23 02:33 A&P Assessment and plan (1) Respiratory failure with hypoxia and hypercapnia: Patient presents with acute on chronic hypoxic and hypercarbic respiratory failure He has been changed to AVAPS settings Mental alertness is improved Continue dexamethasone Continue DuoNeb every 4 hours Continue budesonide twice daily Try to keep O2 saturations 88 to 92%, especially if AVAPS is discontinued Continue Levaquin IV, sputum culture ordered (2) Acute exacerbation of chronic obstructive airways disease: See above (3) Cor pulmonale: Patient with longstanding right heart failure from pulmonary hypertension. Last echocardiogram was several years ago, of severely poor quality, demonstrating preserved EF. BNP is not elevated today. Will evaluate for further diuretics, continuation of diuretics when respiratory status is improving and he is able to take p.o. still n.p.o. today but I suspect with his level of awareness improving this can be changed at some point during the day. CBC, CMP in the morning He does have significant metabolic alkalosis likely from diuretics. They are being held today as he is n.p.o., and could consider acetazolamide if he becomes alert enough to swallow pills (4) Tobacco dependency: Encourage abstinence (5) Thrombocytopenia: Continue to monitor. Appears to be chronic and stable. Ammonia level was c hecked to evaluate for potential liver disease considering his level of consciousness. It was normal CBC in the morning Plan Multiple other medical problems as outlined in his past medical history Full code currently. Lovenox for DVT prophylaxis Protonix for GI prophylaxis Med rec as soon as possible. Attestations Medical Necessity Statement*: Needs continued hospitalization secondary to acute on chronic respiratory failure requiring AVAPS, IV steroids, close monitoring. Still with significant risk of needing intubation and mechanical ventilation. Diagnoses Respiratory failure with hypoxia and hypercapnia J96.91; J96.92 Acute exacerbation of chronic obstructive airways disease J44.1 Cor pulmonale I27.81 Tobacco dependency F17.200 Thrombocytopenia D69.6 Time Spent (min) 26
[2023-01-28] MEDS: budesonide 0.5 mg/2 mL Neb INHALATION ×2 (07:26→19:46)
--- NOTE | 2023-01-28 08:16 | ECG_ITS ---
[facility] Test Date: 2023-01-28 Pat Name: Conrad Ramirez Department: Room: [facility] Gender: Male [employer]: : 1960 Requested By: Nicki Monzon Order Number: [id number] Madalyn MD: Ashlyn Maxwell M.D. Measurements Intervals [place] Rate: 82 P: 76 PA: 154 QRS: 87 QRSD: 91 T: 74 QT: 347 QTc: 407 Interpretive Statements SINUS RHYTHM WITH OCCASIONAL ECTOPIC PREMATURE COMPLEXES Compared to ECG 05/25/2020 16:01:05 Sinus tachycardia no longer present T-wave abnormality no longer present Electronically Signed On 01-28-2023 16:30:04 CDT by Ashlyn Maxwell M.D. [email or web address] [email or web address] mississippi regional medical centerCruse Environmental Technologyselect medical [facility] [place].Qitio/store/NU/[id number] f
[2023-01-28 09:24] LABS: Troponin 5 6HR 54.61 ng/L (0-15)
[2023-01-28 09:25] LABS: Troponin 5 6HR Delta -3.39 ng/L (0-12)
--- NOTE | 2023-01-28 09:31 | PC.PHAR ---
pt unable to verify medications-medications entered are from what roberto key and what was on previously entered med list-metolazone 2.5mg eod filled 11/04/22 30d/s [facility] refill request was denied-
[2023-01-28] MEDS: pantoprazole 40 mg SDV IVP (10:53)
[2023-01-29] VITALS (34 sets, daily range): BP systolic 96–138; BP diastolic 56–79; PULSE 71–112; RESP 10–26; TEMP 36.6–37.3; O2SAT 87–97; BMI 29.5
[2023-01-29] MEDS: acetaminophen 325 mg Tablet 650 MG PO (02:45)
[2023-01-29 03:15] LABS: Basophils % 0.3 %; Eosinophils % 0.3 %; Hematocrit 34.6 % (42.0-52.0); Hemoglobin 10.5 g/dL (11.7-16.6); Lymphocytes # 0.9 10^3/uL (0.8-4.8); Lymphocytes % 11.9 %; Mean Corpuscular HGB Conc 30.3 g/dL (30.0-36.0); Mean Corpuscular Hemoglobin 27.2 pg (28.0-34.0); Mean Corpuscular Volume 89.6 fl (80-94); Mean Platelet Volume 12.4 fL (7.4-10.4); Monocytes % 12.7 %; Neutrophils # 5.89 10^3/uL (1.8-7.7); Neutrophils % 74.4 %; Nucleated Red Blood Cells % 0 %; Platelet Count 88 10^3/cmm (130-400); Red Blood Count 3.86 10^6/uL (4.1-5.3); Red Cell Distribution Width 14.2 % (12.1-15.1); White Blood Count 7.9 10^3/uL (4.0-10.0)
[2023-01-29] MEDS: ipratropium-albuterol 3 mL Neb INHALATION ×6 (03:16→23:50)
[2023-01-29 03:40] LABS: Alanine Aminotransferase 9 U/L (0-41); Albumin Level 3.4 g/dL (3.5-5.2); Alkaline Phosphatase 53 U/L (40-130); Anion Gap 8.5 (5-19); Aspartate Amino Transferase 11 U/L (0-40); Blood Urea Nitrogen 13 mg/dL (8-23); Calcium 9.5 mg/dL (8.5-10.5); Chloride 84 mmol/L (98-107); Globulin 2.3 g/dL (1.3-4.6); Glomerular Filtration Rate 485.1 mL/min (90-130); Glucose 81 mg/dL (65-115); Magnesium 1.6 mg/dL (1.7-2.3); Osmolality Calculated 283 mOsm/kg (285-295); Potassium 3.5 mmol/L (3.5-5.1); Sodium 137 mmol/L (136-145); Total Bilirubin 0.4 mg/dL (0.15-1.2); Total Protein 5.7 g/dL (6.6-8.7)
[2023-01-29 03:52] LABS: Carbon Dioxide 48 mmol/L (22-29)
[2023-01-29] MEDS: levofloxacin-dextrose 5 % 750 MG/150 ML PREMIX 100 MG IV (04:31)
[2023-01-29] MEDS: magnesium sulfate premix 2 GM/50 ML PIGGYBACK IV (06:15)
[2023-01-29] MEDS: dexamethasone 10 mg/mL INJ 6 MG IVP (06:16)
[2023-01-29] MEDS: budesonide 0.5 mg/2 mL Neb INHALATION ×2 (07:49→20:32)
[2023-01-29] MEDS: pantoprazole 40 mg SDV IVP (07:59)
[2023-01-29] MEDS: metoprolol tartrate 25 mg Tablet 12.5 MG PO ×2 (09:54→20:05)
[2023-01-29] MEDS: aspirin 81 mg EC Tablet PO (09:54)
[2023-01-29] MEDS: FUROsemide 40 mg Tablet PO (09:54)
[2023-01-29 09:59] LABS: ABG PH Result 7.48 (7.35-7.45); Arterial Blood Gas Hematocrit 35.1 % (42-52); Base Excess ABG 25.5 mmol/L (-2.0-2.0); Blood Gas Allen Test Pos; Blood Gas Sample Type Arterial; HCO3 ABG 53.3 mmol/L (22-26); PO2 ABG 68.1 mmHg (80.0-100.0)
[2023-01-29 10:00] LABS: Blood Gas Drawn By CAK; Blood Gas Sample Site LR; Oxygen Device HIGH FLOW NC
[2023-01-29 10:01] LABS: ABG PCO2 71.9 mmHg (35-45); Blood Gas Operator Identificat CAK
--- NOTE | 2023-01-29 10:47 | PC.NURSE ---
Addendum entered by Uri Mejia RN 01/29/23 10:49: Patient has an ulcer to the let elbow which drains purulent fluids. 10mm in diameter. NUrse took picture and sent to Dr Suarez via voalte. Sent wound culture to lab. Patient states the wound has been there for about 2 months and he has not sought treatment. Original Note: Patient has an uncler to the let elbow which drains purulent fluids. 10mm in diameter. NUrse took picture and sent to Dr Suarez via voalte. Sent wound culture to lab. Patient states the wound has been there for about 2 months and he has not sough treatment.
--- NOTE | 2023-01-29 11:12 | P.PN_ITS ---
Subjective Subjective: Patient lives with his son who works full-time He has AVAPS at home Patient is extremely weak and lethargic He might need rehab We will request PT OT Patient is awake and alert Resume Lasix along potassium supplements Discontinue IV medication and changed to p.o. Patient currently is on 8 L nasal cannula Patient uses 5-6 L at baseline Vitals/I&O/Wt Last Vital Signs Temp 99.1 F 01/29/23 08:00 Pulse 97 01/29/23 09:00 Resp 23 H 01/29/23 09:00 BP 134/71 01/29/23 10:00 Pulse Ox 87 L 01/29/23 09:00 O2 Del Method Nasal Cannula 01/29/23 08:00 O2 Flow Rate 8 01/29/23 08:00 FiO2 35 01/29/23 07:53 01/28/23 01/29/23 01/29/23 22:59 06:59 14:59 Intake Total 260 / 410 290 / 290 Output Total 1200 / 2400 200 / 2600 Balance -1200 / -2250 60 / -2190 290 / 290 Weight last 48 hrs Weight 98.838 kg Weight 99.5 kg Weight 108.862 kg Physical Exam Narrative: Awake and alert Fluid overloaded Unkept appearance Anasarca Lower extremity edema Nonpurulent cellulitis venous stasis dermatitis Able to give me history No asterixis Weak and lethargic Nonfocal neuro exam Abdomen distended Currently on 8 L nasal cannula saturating 92% I did not appreciate active wheezing Urinary Catheter Management: Lee: Cath Placed During This Visit: yes Reason for Continuing Indwelling Catheter: Accurate Measurement of Urinary Out put in Critically Ill Patients Urinary Catheter Date of Insertion: 01/28/23 Urinary Catheter Time of Insertion: 03:08 Data 01/29/23 02:30 01/29/23 02:30 A&P Assessment and plan (1) Thrombocytopenia: (2) Cor pulmonale: (3) Nicotine addiction: (4) CHF (congestive heart failure): (5) Cellulitis of right leg: (6) Respiratory failure with hypoxia: Qualifiers: Chronicity: acute on chronic Qualified Code(s): J96.21 - Acute and chronic respiratory failure with hypoxia (7) Acute exacerbation of chronic obstructive airways disease: (8) Oxygen deficiency: (9) Severe chronic obstructive pulmonary disease: (10) Physical deconditioning: Plan Physical deconditioning Requested PT/OT May require rehab direct care worker updated Acute COPD exacerbation Active smoker Cough pulmonary pulmonary hypertension Start diuresis along potassium supplement Acute diastolic CHF exacerbation Continue diuresis Grade 1 diastolic dysfunction Acute on chronic hypoxia related to CHF exacerbation We will try to wean him down to his home requirement of 5 to 6 L of oxygen Full code Cardiac diet He can be transferred out of ICU Should use BiPAP every night Uses AVAPS at home Non compliant, active smoker High risk for readmission Patient is stating that in case of cardiac arrest or respiratory depression he does not want to be resuscitated with chest compressions, shock or intubation I will change his CODE STATUS to DNR/DNI Attestations Medical Necessity Statement*: Out of ICU Diagnoses Thrombocytopenia D69.6 Cor pulmonale I27.81 Nicotine addiction F17.200 CHF (congestive heart failure) I50.9 Cellulitis of right leg L03.115 Respiratory failure with hypoxia J96.21 Chronicity: acute on chronic Acute exacerbation of chronic obstructive airways disease J44.1 Oxygen deficiency R09.02 Severe chronic obstructive pulmonary disease J44.9 Physical deconditioning R53.81
[2023-01-29] MEDS: potassium chloride ER 20 mEq Tablet 40 MEQ PO (12:27)
--- NOTE | 2023-01-29 16:13 | PC.OT ---
OT EVALUATION ATTEMPTED THIS P.M. PATIENT SOUNDLY SLEEPING AND DOES NOT AWAKEN; WILL ATTEMPT AGAIN TOMORROW.
--- NOTE | 2023-01-29 16:18 | PC.NURSE ---
TRansferred patient to [facility] surge room 255. [facility] send up with patient. REport given to Niki JAY.
--- NOTE | 2023-01-29 16:19 | PC.NURSE ---
ICU shift summary: Uneventful shift, Patient is alert to person, place, time, a little confused about situation and events leading up to hospitalization. Swelling in the feet has been decreasing. Wound culture of left elbow is pending.
[2023-01-30] VITALS (16 sets, daily range): BP systolic 103–120; BP diastolic 64–73; PULSE 60–87; RESP 13–18; TEMP 36.7–37; O2SAT 90–100
[2023-01-30 01:39] LABS: Basophils % 0.3 %; Eosinophils % 0.3 %; Hemoglobin 10.4 g/dL (11.7-16.6); Lymphocytes % 13.5 %; Mean Corpuscular HGB Conc 30.6 g/dL (30.0-36.0); Mean Corpuscular Hemoglobin 27.6 pg (28.0-34.0); Mean Corpuscular Volume 90.2 fl (80-94); Mean Platelet Volume 12.7 fL (7.4-10.4); Monocytes # 0.8 10^3/uL (0.2-0.9); Monocytes % 10.4 %; Neutrophils # 5.61 10^3/uL (1.8-7.7); Neutrophils % 75.4 %; Nucleated Red Blood Cells % 0 %; Platelet Count 90 10^3/cmm (130-400); Red Blood Count 3.77 10^6/uL (4.1-5.3); Red Cell Distribution Width 14.4 % (12.1-15.1); White Blood Count 7.4 10^3/uL (4.0-10.0)
[2023-01-30 02:01] LABS: Anion Gap 3.8 (5-19); Blood Urea Nitrogen 15 mg/dL (8-23); Calcium 9.3 mg/dL (8.5-10.5); Chloride 90 mmol/L (98-107); Glomerular Filtration Rate 485.1 mL/min (90-130); Glucose 108 mg/dL (65-115); Osmolality Calculated 289 mOsm/kg (285-295); Potassium 3.8 mmol/L (3.5-5.1); Sodium 139 mmol/L (136-145)
[2023-01-30 02:17] LABS: Carbon Dioxide 49 mmol/L (22-29)
[2023-01-30] MEDS: ipratropium-albuterol 3 mL Neb INHALATION ×6 (03:18→23:34)
[2023-01-30] MEDS: levoFLOXacin 750 mg Tablet PO (05:47)
[2023-01-30] MEDS: metoprolol tartrate 25 mg Tablet 12.5 MG PO ×2 (08:13→21:15)
[2023-01-30] MEDS: FUROsemide 40 mg Tablet PO (08:13)
[2023-01-30] MEDS: potassium chloride ER 20 mEq Tablet 40 MEQ PO (08:14)
[2023-01-30] MEDS: aspirin 81 mg EC Tablet PO (08:16)
[2023-01-30] MEDS: budesonide 0.5 mg/2 mL Neb INHALATION ×2 (08:18→20:19)
[2023-01-30] MEDS: pantoprazole 40 mg SDV IVP (09:26)
--- NOTE | 2023-01-30 10:56 | PM.PN ---
Subjective Subjective: Increase the dose of diuretics Patient is clinically fluid overloaded No active chest pain shortness of breath, currently on 6 L of oxygen Patient is willing to go to rehab I also discussed with him the indication for palliative in case he gets worse in the future He does not want chest compressions or intubation He is DNI/DNI Vitals/I&O/Wt Last Vital Signs Temp 98.6 F 01/30/23 07:23 Pulse 87 01/30/23 08:26 Resp 16 01/30/23 08:00 BP 120/73 01/30/23 07:23 Pulse Ox 96 01/30/23 08:00 O2 Del Method High Flow Nasal Cannula 01/30/23 08:00 O2 Flow Rate 6 01/30/23 08:00 FiO2 35 01/30/23 03:19 01/29/23 01/30/23 01/30/23 22:59 06:59 14:59 Intake Total 480 / 770 240 / 240 Output Total 1475 / 2275 100 / 2375 Balance -995 / -1505 -100 / -1605 240 / 240 Weight last 48 hrs Weight 97.267 kg Weight 98.838 kg Physical Exam Narrative: Awake and alert Sign of fluid load slightly better Abdomen soft Lower extremity edema Currently on 6 L Awake alert GCS 15 Abdomen distended Nonfocal neuro exam Nurse at the bedside Urinary Catheter Management: Lee: Cath Placed During This Visit: yes Reason for Continuing Indwelling Catheter: Other Urinary Catheter Date of Insertion: 01/28/23 Urinary Catheter Time of Insertion: 03:08 Data 01/30/23 01:04 01/30/23 01:04 A&P Assessment and plan (1) Physical deconditioning: (2) Thrombocytopenia: (3) Cor pulmonale: (4) Pulmonary nodule: (5) Nicotine addiction: (6) CHF (congestive heart failure): (7) Cellulitis of right leg: (8) Oxygen deficiency: (9) Acute exacerbation of chronic obstructive airways disease: (10) Hyperglycemia: (11) Severe chronic obstructive pulmonary disease: (12) Hypertension: Qualifiers: Hypertension type: essential hypertension Qualified Code(s): I10 - Essential (primary) hypertension Plan Physical deconditioning: Started authorization, Patient will require rehab End-stage COPD Required 6 L of oxygen Gradually improving Acute diastolic CHF exacerbation Continue diuresis Contraction alkalosis which is in compensation to hypercapnia which is chronic DNR/DNI CODE STATUS changed Patient is on MedSurg Awaiting placement Requires BiPAP every night Attestations Medical Necessity Statement*: Continue medical management Diagnoses Physical deconditioning R53.81 Thrombocytopenia D69.6 Cor pulmonale I27.81 Pulmonary nodule R91.1 Nicotine addiction F17.200 CHF (congestive heart failure) I50.9 Cellulitis of right leg L03.115 Oxygen deficiency R09.02 Acute exacerbation of chronic obstructive airways disease J44.1 Hyperglycemia R73.9 Severe chronic obstructive pulmonary disease J44.9 Hypertension I10 Hypertension type: essential hypertension
[2023-01-31] VITALS (21 sets, daily range): BP systolic 100–132; BP diastolic 56–71; PULSE 73–96; RESP 13–19; TEMP 36.4–37.1; O2SAT 91–100
[2023-01-31] MEDS: ipratropium-albuterol 3 mL Neb INHALATION ×6 (04:53→23:56)
[2023-01-31 05:13] LABS: Anion Gap 10.1 (5-19); Blood Urea Nitrogen 15 mg/dL (8-23); Calcium 9.2 mg/dL (8.5-10.5); Chloride 91 mmol/L (98-107); Glomerular Filtration Rate 485.1 mL/min (90-130); Glucose 88 mg/dL (65-115); Osmolality Calculated 292 mOsm/kg (285-295); Potassium 4.1 mmol/L (3.5-5.1); Sodium 141 mmol/L (136-145)
[2023-01-31 05:27] LABS: Carbon Dioxide 44 mmol/L (22-29)
[2023-01-31] MEDS: levoFLOXacin 750 mg Tablet PO (05:41)
[2023-01-31] MEDS: metoprolol tartrate 25 mg Tablet 12.5 MG PO ×2 (08:12→21:47)
[2023-01-31] MEDS: aspirin 81 mg EC Tablet PO (08:13)
[2023-01-31] MEDS: acetaZOLAMIDE 250 mg Tablet PO (08:13)
[2023-01-31] MEDS: potassium chloride ER 20 mEq Tablet 40 MEQ PO (08:13)
[2023-01-31] MEDS: pantoprazole 40 mg SDV IVP (08:13)
[2023-01-31] MEDS: budesonide 0.5 mg/2 mL Neb INHALATION ×2 (08:36→20:34)
[2023-01-31] MEDS: acetaminophen 325 mg Tablet 650 MG PO (09:15)
--- NOTE | 2023-01-31 10:46 | P.PN_ITS ---
Subjective Subjective: Patient doing well I would give him 1 dose of acetazolamide today Awaiting placement Is asking for pain medication, he stating that he is hurting all over in his joints Vitals/I&O/Wt Last Vital Signs Temp 98.0 F 01/31/23 07:25 Pulse 88 01/31/23 08:54 Resp 18 01/31/23 08:35 BP 120/71 01/31/23 07:25 Pulse Ox 95 01/31/23 08:35 O2 Del Method High Flow Nasal Cannula 01/31/23 08:35 O2 Flow Rate 5 01/31/23 08:35 FiO2 35 01/30/23 23:39 01/30/23 01/31/23 01/31/23 22:59 06:59 14:59 Intake Total 240 / 480 120 / 600 240 / 240 Output Total 800 / 800 350 / 1150 Balance -560 / -320 -230 / -550 240 / 240 Weight last 48 hrs Weight 102.693 kg Weight 97.267 kg Physical Exam Narrative: Laying supine Fluid overloaded signs improving Abdomen soft S1, S2 GCS 15 Currently on 5 L Nonfocal neuro exam Urinary Catheter Management: Lee: Cath Placed During This Visit: yes Reason for Continuing Indwelling Catheter: Acute Urinary Retention or Obstruct ion Urinary Catheter Date of Insertion: 01/28/23 Urinary Catheter Time of Insertion: 03:08 Data 01/30/23 01:04 01/31/23 04:23 Micro: Microbiology 01/29/23 09:40 Wound Culture - Preliminary Elbow - Left 01/29/23 09:40 Gram Stain - Final Sputum - Expectorated Sputum Sputum Culture - Preliminary A&P Assessment and plan (1) Physical deconditioning: (2) Thrombocytopenia: (3) Cor pulmonale: (4) Pulmonary nodule: (5) CHF (congestive heart failure): (6) Severe chronic obstructive pulmonary disease: (7) Hyperlipidemia: Qualifiers: Hyperlipidemia type: mixed hyperlipidemia Qualified Code(s): E78.2 - Mixed hyperlipidemia (8) Respiratory failure with hypoxia and hypercapnia: (9) Cellulitis of right leg: Plan Contraction alkalosis In compensation to hypercapnia I will give him 1 dose of acetazolamide today Continue with diuretics tomorrow Awaiting placement We will repeat BMP for tomorrow BiPAP every night DNR/DNI Cellulitis of leg improving Chronic hypoxia requires 5 to 6 L of oxygen at baseline Guarded prognosis High risk for readmissions Attestations Medical Necessity Statement*: Awaiting placement Diagnoses Physical deconditioning R53.81 Thrombocytopenia D69.6 Cor pulmonale I27.81 Pulmonary nodule R91.1 CHF (congestive heart failure) I50.9 Severe chronic obstructive pulmonary disease J44.9 Hyperlipidemia E78.2 Hyperlipidemia type: mixed hyperlipidemia Respiratory failure with hypoxia and hypercapnia J96.91; J96.92 Cellulitis of right leg L03.115
[2023-02-01] VITALS (19 sets, daily range): BP systolic 100–113; BP diastolic 61–72; PULSE 72–96; RESP 15–23; TEMP 36.3–37.3; O2SAT 91–99
[2023-02-01] MEDS: ipratropium-albuterol 3 mL Neb INHALATION ×6 (03:07→23:04)
[2023-02-01] MEDS: levoFLOXacin 750 mg Tablet PO (06:40)
[2023-02-01] MEDS: acetaminophen 325 mg Tablet 650 MG PO (07:23)
[2023-02-01] MEDS: metoprolol tartrate 25 mg Tablet 12.5 MG PO ×2 (08:33→20:19)
[2023-02-01] MEDS: pantoprazole 40 mg SDV IVP (08:33)
[2023-02-01] MEDS: aspirin 81 mg EC Tablet PO (08:34)
[2023-02-01] MEDS: potassium chloride ER 20 mEq Tablet 40 MEQ PO (08:34)
[2023-02-01] MEDS: budesonide 0.5 mg/2 mL Neb INHALATION ×2 (08:58→20:25)
[2023-02-01] MEDS: FUROsemide 40 mg Tablet PO (09:42)
[2023-02-01] MEDS: oxyCODONE-APAP 5-325 mg Tablet 1 TAB PO ×2 (09:42→17:12)
--- NOTE | 2023-02-01 10:37 | P.PN_ITS ---
Subjective Subjective: Patient endorsing feeling better complaining of hip pain working with PT this morning Currently on 5 L Vitals/I&O/Wt Last Vital Signs Temp 97.7 F 02/01/23 08:00 Pulse 96 02/01/23 08:00 Resp 18 02/01/23 09:42 BP 113/66 02/01/23 08:00 Pulse Ox 92 02/01/23 09:42 O2 Del Method Nasal Cannula 02/01/23 08:00 O2 Flow Rate 6 02/01/23 08:00 FiO2 35 02/01/23 03:09 01/31/23 02/01/23 02/01/23 22:59 06:59 14:59 Intake Total 860 / 1340 120 / 1460 480 / 480 Output Total 1600 / 1600 1100 / 1100 Balance -740 / -260 120 / -140 -620 / -620 Weight last 48 hrs Weight 100.425 kg Weight 102.693 kg Physical Exam Urinary Catheter Management: Lee: Cath Placed During This Visit: yes, but has since been removed by the nurse Reason for Continuing Indwelling Catheter: Decision to DC Catheter Urinary Catheter Date of Insertion: 01/28/23 Urinary Catheter Time of Insertion: 03:08 Date Urinary Catheter Removed: 02/01/23 Time Urinary Catheter Discontinued: 09:55 Data 01/30/23 01:04 01/31/23 04:23 Micro: Microbiology 01/29/23 09:40 Wound Culture - Preliminary Elbow - Left Coag negative Staphylococcus 01/29/23 09:40 Gram Stain - Final Sputum - Expectorated Sputum Sputum Culture - Final A&P Assessment and plan (1) Physical deconditioning: (2) Cor pulmonale: (3) Nicotine addiction: (4) CHF (congestive heart failure): (5) Cellulitis of right leg: (6) Respiratory failure with hypoxia: Qualifiers: Chronicity: acute on chronic Qualified Code(s): J96.21 - Acute and chronic respiratory failure with hypoxia (7) Acute exacerbation of chronic obstructive airways disease: (8) Severe chronic obstructive pulmonary disease: (9) Respiratory failure with hypoxia and hypercapnia: Plan 62-year-old male who carries history of severe COPD uses 5 to 6 L of oxygen at baseline present to the hospital for worsening of shortness of breath with hypoxia and hypercarbia improved with use of BiPAP, he does have AVAPS at home, he lives with his son who works full-time, in the ICU his symptoms improved, because of COPD exacerbation was heart failure exacerbation with underlying pulmonary hypertension, limited functional capacity, patient is agreeable to go to senior living, we are waiting for placement, Cultures negative, patient is back to his normal oxygen requirement of 5 to 6 L, working with PT, complains of joint pains all over, because of contraction alkalosis I gave him 2 doses of acetazolamide Friday and Friday, back on his Lasix dose starting Friday, -6 L fluid balance patient will go to rehab most likely on Friday with BiPAP and Lasix along potassium supplements. Patient did change his CODE STATUS to DNR/DNI, ICU nurse was the witness as well. He is high risk for readmissions because of his severe comorbid conditions. Acute COPD exacerbation Related to heart failure exacerbation with underlying pulm hypertension BiPAP overnight patient is doing well Compensated now Requires 5 to 6 L during the daytime which is his baseline requirement Contraction alkalosis: Stop acetazolamide today Start Lasix along potassium Diastolic CHF exacerbation: Continue diuresis Cor pulmonale may resume Entresto at discharge, blood pressure is stable Physical deconditioning: Requiring rehab awaiting placement Working with PT on daily basis Osteoarthritis related joint pain I will give him Tylenol and oxycodone on as- needed basis Right leg cellulitis: Improving, venous stasis dermatitis Skin wrinkling noted No need of antibiotics at this point CODE STATUS: DNR/DNI that was changed at this hospitalization Cardiac diet Remove Lee catheter 02/01 Attestations Medical Necessity Statement*: Anticipating discharge on Friday Diagnoses Physical deconditioning R53.81 Cor pulmonale I27.81 Nicotine addiction F17.200 CHF (congestive heart failure) I50.9 Cellulitis of right leg L03.115 Respiratory failure with hypoxia J96.21 Chronicity: acute on chronic Acute exacerbation of chronic obstructive airways disease J44.1 Severe chronic obstructive pulmonary disease J44.9 Respiratory failure with hypoxia and hypercapnia J96.91; J96.92
[2023-02-01] MEDS: doxycycline 100 mg Tablet PO (17:10)
[2023-02-02] VITALS (18 sets, daily range): BP systolic 99–130; BP diastolic 54–77; PULSE 76–94; RESP 16–24; TEMP 36.3–36.8; O2SAT 93–99
[2023-02-02] MEDS: ipratropium-albuterol 3 mL Neb INHALATION ×5 (03:01→20:05)
[2023-02-02 03:58] LABS: Basophils % 0.4 %; Eosinophils # 0.3 10^3/uL (0.0-0.8); Eosinophils % 4.7 %; Hematocrit 34.2 % (42.0-52.0); Hemoglobin 10.2 g/dL (11.7-16.6); Lymphocytes # 1.1 10^3/uL (0.8-4.8); Lymphocytes % 19.9 %; Mean Corpuscular HGB Conc 29.8 g/dL (30.0-36.0); Mean Corpuscular Volume 90.5 fl (80-94); Mean Platelet Volume 12.3 fL (7.4-10.4); Monocytes # 0.6 10^3/uL (0.2-0.9); Monocytes % 10.2 %; Neutrophils # 3.62 10^3/uL (1.8-7.7); Neutrophils % 64.6 %; Nucleated Red Blood Cells % 0 %; Platelet Count 81 10^3/cmm (130-400); Red Blood Count 3.78 10^6/uL (4.1-5.3); Red Cell Distribution Width 14.2 % (12.1-15.1); White Blood Count 5.6 10^3/uL (4.0-10.0)
[2023-02-02 04:20] LABS: Anion Gap 5.9 (5-19); Blood Urea Nitrogen 13 mg/dL (8-23); Calcium 9.1 mg/dL (8.5-10.5); Chloride 95 mmol/L (98-107); Glomerular Filtration Rate 168.5 mL/min (90-130); Glucose 90 mg/dL (65-115); Osmolality Calculated 288 mOsm/kg (285-295); Potassium 3.9 mmol/L (3.5-5.1); Sodium 139 mmol/L (136-145)
[2023-02-02 04:26] LABS: Carbon Dioxide 42 mmol/L (22-29)
[2023-02-02] MEDS: budesonide 0.5 mg/2 mL Neb INHALATION ×2 (07:58→20:05)
[2023-02-02] MEDS: metoprolol tartrate 25 mg Tablet 12.5 MG PO ×2 (08:35→20:30)
[2023-02-02] MEDS: doxycycline 100 mg Tablet PO ×2 (08:35→17:04)
[2023-02-02] MEDS: potassium chloride ER 20 mEq Tablet 40 MEQ PO (08:35)
[2023-02-02] MEDS: oxyCODONE-APAP 5-325 mg Tablet 1 TAB PO (08:35)
[2023-02-02] MEDS: FUROsemide 40 mg Tablet PO (08:36)
[2023-02-02] MEDS: aspirin 81 mg EC Tablet PO (08:36)
[2023-02-02] MEDS: pantoprazole 40 mg SDV IVP (09:01)
--- NOTE | 2023-02-02 09:24 | PC.SOCIAL ---
IMM update IMM updated with patient. Verbalized an understanding. Copy Pg 2 provided. Initialled, dated, timed, and placed in chart.
--- NOTE | 2023-02-02 13:18 | P.PN_ITS ---
Subjective Subjective: Hospital course, labs appreciated. Examination patient sitting up in bed having his meal. Denies any nausea, vomiting, headache. States he is feeling back to his baseline. Continues to remain on 5 L of baseline oxygen supplementation. Blood work shows a stable CBC with a hemoglobin of 10.2, CMP showing sodium 139, bicarb of 42 which seems to be around his baseline, creatinine of 0.5 Medications: Reviewed: Yes Vitals/I&O/Wt Last Vital Signs Temp 97.5 F L 02/02/23 12:00 Pulse 84 02/02/23 12:19 Resp 20 H 02/02/23 12:15 BP 121/75 02/02/23 12:00 Pulse Ox 98 02/02/23 12:15 O2 Del Method Nasal Cannula 02/02/23 12:15 O2 Flow Rate 6 02/02/23 12:15 FiO2 35 02/01/23 03:09 02/01/23 02/02/23 02/02/23 22:59 06:59 14:59 Intake Total 480 / 1200 960 / 2160 600 / 600 Output Total 500 / 1600 Balance 480 / 100 460 / 560 600 / 600 Weight last 48 hrs Weight 100.425 kg Weight 100.425 kg Physical Exam Narrative: General: No acute distress, AO x3, NC oxygen supplementation HEENT: PERRLA, pupils bilaterally equal and reactive Chest: Bronchial breath sounds b/l , equal air entry all over lung bowling with occasional rhonchi and coarse crackles CVS: S1-S2 regular, no murmurs, no tachycardia, no gallops, no rubs Abdomen: Soft, nontender, no organomegaly, bowel sounds present, morbidly obese Neuro: No focal deficits, no facial deformity, AO x3, power 5/5 in all limbs Urinary Catheter Management: Lee: Cath Placed During This Visit: yes, but has since been removed by the nurse Reason for Continuing Indwelling Catheter: Decision to DC Catheter Urinary Catheter Date of Insertion: 01/28/23 Urinary Catheter Time of Insertion: 03:08 Date Urinary Catheter Removed: 02/01/23 Time Urinary Catheter Discontinued: 09:55 Data 02/02/23 02:37 02/02/23 02:37 Micro: Microbiology 01/29/23 09:40 Wound Culture - Preliminary Elbow - Left Coag negative Staphylococcus A&P Assessment and plan (1) Respiratory failure with hypoxia and hypercapnia: (2) Acute exacerbation of chronic obstructive airways disease: (3) Cor pulmonale: (4) CHF (congestive heart failure): (5) Cellulitis of right leg: (6) Physical deconditioning: (7) Nicotine addiction: (8) Respiratory failure with hypoxia: Qualifiers: Chronicity: acute on chronic Qualified Code(s): J96.21 - Acute and ch ronic respiratory failure with hypoxia (9) Severe chronic obstructive pulmonary disease: Plan 62-year-old male who carries history of severe COPD uses 5 to 6 L of oxygen at baseline present to the hospital for worsening of shortness of breath with hypoxia and hypercarbia improved with use of BiPAP, he does have AVAPS at home, he lives with his son who works full-time, in the ICU his symptoms improved, because of COPD exacerbation was heart failure exacerbation with underlying pulmonary hypertension, limited functional capacity, patient is agreeable to go to halfway, we are waiting for placement, Cultures negative, patient is back to his normal oxygen requirement of 5 to 6 L, working with PT, complains of joint pains all over, because of contraction alkalosis I gave him 2 doses of acetazolamide Friday and Friday, back on his Lasix dose starting Friday, -6 L fluid balance patient will go to rehab most likely on Friday with BiPAP and Lasix along potassium supplements. Patient did change his CODE STATUS to DNR/DNI, ICU nurse was the witness as well. He is high risk for readmissions because of his severe comorbid conditions. Acute on chronic hypoxic and hypercapnic respiratory failure: Most likely in setting of COPD exacerbation with cor pulmonale and diastolic heart failure. Resolving back down to baseline. Patient is at his baseline oxygen supplementation. Continue with DuoNeb every 6 hour, budesonide twice daily. Oxygen supplementation keeping saturation over 88%. Contraction alkalosis: Seems to have resolved. Patient back to his baseline bicarb of 40-45. Continue with home dose of Lasix along potassium Diastolic CHF exacerbation: Continue diuresis Cor pulmonale Hypertension: Goal blood pressure less than 140/90 mmHg. At home takes beta-mariano and Entresto. Holding off on Entresto given borderline normal blood pressures. We will continue to monitor. Physical deconditioning: Appreciate PT recommendations. Awaiting placement Right leg cellulitis: Resolved. Does have possible cellulitis on right elbow. Started back on doxycycline. For now we will continue. Continue to wound cultures. Venous stasis dermatitis CODE STATUS: DNR/DNI. Cardiac diet Protonix for PUD prophylaxis Lovenox for DVT prophylaxis. Discharge planning: Plan to discharge to SNF once medically stable. Awaiting placement. Most likely possible discharge in the next 24 hours. Attestations Medical Necessity Statement*: Requires further hospitalization for management of acute on chronic hypoxic and hypercapnic respiratory failure in setting of COPD exacerbation, cor pulmonale and diastolic heart failure while safe discharge planning is sought and contraction alkalosis is monitored. Diagnoses Respiratory failure with hypoxia and hypercapnia J96.91; J96.92 Acute exacerbation of chronic obstructive airways disease J44.1 Cor pulmonale I27.81 CHF (congestive heart failure) I50.9 Cellulitis of right leg L03.115 Physical deconditioning R53.81 Nicotine addiction F17.200 Respiratory failure with hypoxia J96.21 Chronicity: acute on chronic Severe chronic obstructive pulmonary disease J44.9
[2023-02-02] MEDS: nicotine 14 mg Patch 1 PATCH TRANSDERMA (14:15)
[2023-02-02] MEDS: enoxaparin 40 mg/0.4 mL Syringe SUBCUT (14:15)
[2023-02-03] VITALS (11 sets, daily range): BP systolic 98–126; BP diastolic 55–74; PULSE 69–92; RESP 16–18; TEMP 36.4–36.6; O2SAT 90–99
[2023-02-03] MEDS: ipratropium-albuterol 3 mL Neb INHALATION ×4 (03:00→15:00)
[2023-02-03] MEDS: oxyCODONE-APAP 5-325 mg Tablet 1 TAB PO ×2 (04:11→08:09)
[2023-02-03] MEDS: budesonide 0.5 mg/2 mL Neb INHALATION (07:22)
[2023-02-03] MEDS: doxycycline 100 mg Tablet PO ×2 (08:09→17:07)
[2023-02-03] MEDS: potassium chloride ER 20 mEq Tablet 40 MEQ PO (08:10)
[2023-02-03] MEDS: aspirin 81 mg EC Tablet PO (08:10)
[2023-02-03] MEDS: FUROsemide 40 mg Tablet PO (08:10)
[2023-02-03] MEDS: metoprolol tartrate 25 mg Tablet 12.5 MG PO (08:10)
[2023-02-03] MEDS: pantoprazole 40 mg SDV IVP (08:12)
[2023-02-03] MEDS: nicotine 14 mg Patch 1 PATCH TRANSDERMA (08:12)
--- NOTE | 2023-02-03 10:21 | PM.DCS ---
Discharge Providers Date of Admission: 01/28/23 04:53 Date of Discharge: February 03, 2023 Attending Provider at Admission: David Bond MD Attending Provider at Discharge: Ivan Chau MD Primary Care Provider: EMMIE Freedman Diagnoses at Discharge Discharge Diagnosis (1) Respiratory failure with hypoxia and hypercapnia: Status: Acute (2) Acute exacerbation of chronic obstructive airways disease: Status: Acute (3) Cor pulmonale: Status: Acute (4) CHF (congestive heart failure): Status: Chronic (5) Cellulitis of right leg: Status: Acute (6) Physical deconditioning: Status: Acute (7) Nicotine addiction: Status: Chronic (8) Respiratory failure with hypoxia: Status: Acute Qualifiers: Chronicity: acute on chronic Qualified Code(s): J96.21 - Acute and chronic respiratory failure with hypoxia (9) Severe chronic obstructive pulmonary disease: Status: Chronic Reason for Visit Reason for Visit: SOB Brief History: History as per HPI: Conrad Ramirez (Dale) is a 62 year old male presenting to the emergency department from EMS with shortness of breath for at least 2 to 3 days.? He received Solu-Medrol during transport as well as a nebulized treatment.? The emergency department physician reports he had some confusion on arrival here.? He cannot give an adequate history for me secondary to continued confusion/CO2 narcosis.? I can get him to withdraw slightly, and groan with stimulation.? Respiratory alerts me that they have just changed settings on AVAPS to try to improve his CO2. Hospital Course Hospital Course Patient was admitted to the ICU for further evaluation and management of acute on chronic hypoxic and hypercapnic respiratory failure leading to metabolic encephalopathy in setting of COPD exacerbation. There was also concern for exacerbation of baseline cor pulmonale. He was started on diuretic therapy along with IV steroids and inhalation treatment. Patient responded well to the treatment and gradually improved. He was transferred out of ICU to [facility] floor. Patient did develop mild contraction alkalosis for which she was started on acetazolamide for a short while. He has been back to his baseline oxygen supplementation for last 72 hours. Patient was found to be severely deconditioned for which physical therapy evaluation was done. Patient was recommended to be transferred to SNF for further rehabilitation. Patient was found to have mild abrasion on the elbow for which wound culture was drawn and he was started on oral doxycycline. Patient was recommended to be discharged to SNF for further rehabilitation. Patient verbalized understanding and is agreeable to discharge to SNF for further rehabilitation. Physical Exam Narrative: General: No acute distress, AO x3, NC oxygen supplementation HEENT: PERRLA, pupils bilaterally equal and reactive Chest: Bronchial breath sounds b/l , equal air entry all over lung bowling with occasional rhonchi and coarse crackles CVS: S1-S2 regular, no murmurs, no tachycardia, no gallops, no rubs Abdomen: Soft, nontender, no organomegaly, bowel sounds present, morbidly obese Neuro: No focal deficits, no facial deformity, AO x3, power 5/5 in all limbs Urinary Catheter Management: Lee: Cath Placed During This Visit: yes, but has since been removed by the nurse Reason for Continuing Indwelling Catheter: Decision to DC Catheter Urinary Catheter Date of Insertion: 01/28/23 Urinary Catheter Time of Insertion: 03:08 Date Urinary Catheter Removed: 02/01/23 Time Urinary Catheter Discontinued: 09:55 Discharge Data Studies Completed and Pending Completed Studies During Hospitalization Category Date Time Status XR chest 1V portable [id number] Stat Exams 01/28/23 02:16 Completed Pending at discharge Category Date Time Status Wound Culture Routine Lab 01/29/23 09:40 Results Radiology Impressions Chest X-Ray 01/28/23 02:16 IMPRESSION: Nonspecific mild left lung base opacity favors atelectasis or pneumonia. Microbiology 01/29/23 09:40 Elbow - Left Wound Culture - Final Staphylococcus epidermidis 01/29/23 09:40 Sputum - Expectorated Sputum Gram Stain - Final 01/29/23 09:40 Sputum - Expectorated Sputum Sputum Culture - Final Laboratory Results WBC 5.6 10^3/uL (4.0-10.0) 02/02/23 02:37 RBC 3.78 10^6/uL (4.1-5.3) L 02/02/23 02:37 Hgb 10.2 g/dL (11.7-16.6) L 02/02/23 02:37 Hct 34.2 % (42.0-52.0) L 02/02/23 02:37 MCV 90.5 fl (80-94) 02/02/23 02:37 MCH 27.0 pg (28.0-34.0) L 02/02/23 02:37 MCHC 29.8 g/dL (30.0-36.0) L 02/02/23 02:37 RDW 14.2 % (12.1-15.1) 02/02/23 02:37 Plt Count 81 10^3/cmm (130-400) L 02/02/23 02:37 MPV 12.3 fL (7.4-10.4) H 02/02/23 02:37 Neut % (Auto) 64.6 % 02/02/23 02:37 Lymph % (Auto) 19.9 % 02/02/23 02:37 [place] % (Auto) 10.2 % 02/02/23 02:37 Eos % (Auto) 4.7 % 02/02/23 02:37 Baso % (Auto) 0.4 % 02/02/23 02:37 Neut # (Auto) 3.62 10^3/uL (1.8-7.7) 02/02/23 02:37 Lymph # (Auto) 1.1 10^3/uL (0.8-4.8) 02/02/23 02:37 [place] # (Auto) 0.6 10^3/uL (0.2-0.9) 02/02/23 02:37 Eos # (Auto) 0.3 10^3/uL (0.0-0.8) 02/02/23 02:37 Baso # (Auto) 0.0 10^3/uL (0.0-0.1) 02/02/23 02:37 Nucleated RBC % (auto) 0 % 02/02/23 02:37 Nucleated RBCs # 0.0 /100WBC 02/02/23 02:37 PT 12.70 SECONDS (12.1-14.9) 01/28/23 02:33 INR 0.93 (0.8-1.2) 01/28/23 02:33 Specimen Type Arterial 01/29/23 09:48 Sample Site Lr 01/29/23 09:48 O2 Sat Pulse Oximetry Electrical Engineering Designer 01/28/23 05:01 ABG pH 7.48 (7.35-7.45) H 01/29/23 09:48 ABG pCO2 71.9 mmHg (35-45) H* 01/29/23 09:48 ABG pO2 68.1 mmHg (80.0-100.0) L 01/29/23 09:48 ABG HCO3 53.3 mmol/L (22-26) H 01/29/23 09:48 ABG Base Excess 25.5 mmol/L (-2.0-2.0) H 01/29/23 09:48 Miguel Angel Test Pos 01/29/23 09:48 Hematocrit 35.1 % (42-52) L 01/29/23 09:48 Respiration Rate Electrical Engineering Designer 01/28/23 05:01 O2 Delivery Device High flow nc 01/29/23 09:48 O2 Liters/Min 8.0 % 01/29/23 09:48 SIMV Electrical Engineering Designer 01/28/23 05:01 Vent Mode Electrical Engineering Designer 01/28/23 05:01 Mechanical Rate Electrical Engineering Designer 01/28/23 05:01 Spontaneous Rate Electrical Engineering Designer 01/28/23 05:01 FiO2 40.0 % 01/28/23 05:01 Tidal Volume Electrical Engineering Designer 01/28/23 05:01 PEEP Electrical Engineering Designer 01/28/23 05:01 Pressure Support Electrical Engineering Designer 01/28/23 05:01 Pressure Control Electrical Engineering Designer 01/28/23 05:01 CPAP Electrical Engineering Designer 01/28/23 05:01 Mode BiPAP Electrical Engineering Designer 01/28/23 05:01 Specimen Drawn By Demario 01/29/23 09:48 Drying Supervisor ID Demario 01/29/23 09:48 Crit Value Read Back Electrical Engineering Designer 01/28/23 05:01 Blood Gas Notified Time Electrical Engineering Designer 01/28/23 05:01 Sodium 139 mmol/L (136-145) 02/02/23 02:37 Potassium 3.9 mmol/L (3.5-5.1) 02/02/23 02:37 Chloride 95 mmol/L (98-107) L 02/02/23 02:37 Carbon Dioxide 42 mmol/L (22-29) H* 02/02/23 02:37 Anion Gap 5.9 (5-19) 02/02/23 02:37 BUN 13 mg/dL (8-23) 02/02/23 02:37 Creatinine 0.5 mg/dL (0.7-1.2) L 02/02/23 02:37 GFR Calculation 168.5 mL/min (90-130) H 02/02/23 02:37 Glucose 90 mg/dL (65-115) 02/02/23 02:37 Calculated Osmolality 288 mOsm/kg (285-295) 02/02/23 02:37 Calcium 9.1 mg/dL (8.5-10.5) 02/02/23 02:37 Magnesium 1.6 mg/dL (1.7-2.3) L 01/29/23 02:30 Total Bilirubin 0.4 mg/dL (0.15-1.2) 01/29/23 02:30 AST 11 U/L (0-40) 01/29/23 02:30 ALT 9 U/L (0-41) 01/29/23 02:30 Alkaline Phosphatase 53 U/L (40-130) 01/29/23 02:30 Ammonia 56 umol/L (16-60) 01/28/23 05:00 Troponin T Baseline 58 ng/L (0-15) H 01/28/23 02:33 Troponin T 120 Minute 56.37 ng/L (0-15) H 01/28/23 04:30 Delta Troponin T -1.63 ABS# (0-10) L 01/28/23 04:30 Troponin T Hi Sens 6Hr 54.61 ng/L (0-15) H 01/28/23 08:41 Troponin T Hi Sens 6Hr Delta -3.39 ng/L (0-12) L 01/28/23 08:41 NT-Pro-B Natriuret Pep 70 pg/mL (0-125) 01/28/23 02:33 Total Protein 5.7 g/dL (6.6-8.7) L 01/29/23 02:30 Albumin 3.4 g/dL (3.5-5.2) L 01/29/23 02:30 Globulin 2.3 g/dL (1.3-4.6) 01/29/23 02:30 Urine Color Yellow (Yellow) 01/28/23 03:04 Urine Appearance Clear (CLEAR) 01/28/23 03:04 Urine pH 6 (5-7) 01/28/23 03:04 Ur Specific [place] 1.025 (1.005-1.030) 01/28/23 03:04 Urine Protein 1+ (Negative) H 01/28/23 03:04 Urine Glucose (UA) Norm (Normal) 01/28/23 03:04 Urine Ketones 1+ (Negative) H 01/28/23 03:04 Urine Blood Neg (Negative) 01/28/23 03:04 Urine Nitrate Negative (Negative) 01/28/23 03:04 Urine Bilirubin Neg (Negative) 01/28/23 03:04 Urine Urobilinogen 4 mg/dL (Negative) H 01/28/23 03:04 Ur Leukocyte Esterase Negative (Negative) 01/28/23 03:04 Urine RBC None /hpf (0-2) 01/28/23 03:04 Urine WBC None /hpf (0-5) 01/28/23 03:04 Ur Squamous Epith Cells 0-4 /hpf (0-5) H 01/28/23 03:04 Amorphous Sediment Not Reportable 01/28/23 03:04 Urine Bacteria Trace /hpf (NONE) 01/28/23 03:04 Urine Mucus 1+ /hpf 01/28/23 03:04 SARS-CoV-2 Ag (Rapid) negative (Negative) 01/28/23 02:32 Vitals Last Vital Signs Temp 97.8 F 02/03/23 07:52 Pulse 92 02/03/23 07:52 Resp 18 02/03/23 08:09 BP 126/67 02/03/23 07:52 Pulse Ox 90 02/03/23 07:52 O2 Del Method Nasal Cannula 02/03/23 07:52 O2 Flow Rate 6 02/03/23 08:00 FiO2 35 02/01/23 03:09 Discharge Plan Discharge Patient Disposition: Xfer SNF Condition: Stable Prescriptions: New doxycycline monohydrate 100 mg Tablet 100 mg PO BID 3 Days Qty: 6 0RF levofloxacin 500 mg tablet 500 mg PO Q24H 3 Days Qty: 3 0RF Continued azelastine-fluticasone 137-50 mcg/spray spray,non-aerosol 1 spray INTRANASAL BID Qty: 23 5RF Rx Instructions: administer into each nostril levalbuterol HCl 1.25 mg/3 mL solution for nebulization 1.25 mg INHALATION QID PRN (Reason: shortness of breath or wheezing) Qty: 300 5RF atorvastatin 40 mg tablet 40 mg PO BEDTIME Qty: 30 5RF Entresto 24-26 mg tablet 1 tab PO BID Qty: 60 5RF Rx Instructions: EF 59% Stop plain Diovan metoprolol tartrate 25 mg tablet 12.5 mg PO BID Qty: 30 5RF mupirocin 2 % ointment 1 applic topical BID Qty: 22 0RF aspirin 81 mg tablet,delayed release (DR/EC) 81 mg PO DAILY Qty: 30 5RF (DME) compressor, for nebulizer Device See Rx Instructions .ROUTE .MEDSUPPLY Qty: 1 0RF Rx Instructions: As directed budesonide 0.5 mg/2 mL suspension for nebulization 0.5 mg inhalation Q12H Qty: 60 11RF Yupelri 175 mcg/3 mL solution for nebulization 175 mcg inhalation DAILY Qty: 30 11RF azithromycin 250 mg tablet 250 mg PO .COMPLEX 90 Days Qty: 45 4RF Rx Instructions: 250 mg by mouth on Friday and Friday Perforomist 20 mcg/2 mL solution for nebulization 2 ml inhalation Q12H Changed furosemide 40 mg tablet 40 mg PO DAILY 30 Days Qty: 60 5RF potassium chloride 20 mEq tablet extended release 20 meq PO DAILY Qty: 80 5RF Discharge Orders: Discharge Order (Routine); Ordered 02/03/23 Ordered By: Ivan Chau Referrals: [facility] [Outside] Stephani Pitts, RICOC [Primary Care Provider] - 7-10 days Discharge Diet: Regular Discharge Activity: Resume usual activity and Increase activity as tolerated Patient Instructions: Doxycycline (By mouth), Opioid Safety Activity Restrictions/Additional Instructions: Dose of Lasix has been changed to 40 mg daily, potassium has been changed to 20 mg daily. Repeat BMP in 1 week. Please continue to use BiPAP/AVAPS at night or when resting. Levaquin and doxycycline are the antibiotics which is supposed to take for next 3 days. Discharge Attestations Time Spent in Discharge Care*: greater than 30 min Specific Discharge Activities: educating patient, educating and/or supporting family/caregiver, discussing with pcp/other providers, discussing with dependency case manager/social workers/dc planners, documenting/other paperwork and evaluating patient/reviewing data Status at Discharge: Cognitive status at discharge: cognitively intact, Behavioral status at discharge: cooperative, Functional status at discharge: uses cane/walker, Overall status at discharge: patient is back to baseline Quality Metrics Clinical Quality Measures [ No reported AMI, CVA or VTE this stay] Coding Level of Care Code 09441 Total time (in minutes) for Discharge: 50 Diagnoses Respiratory failure with hypoxia and hypercapnia J96.91; J96.92 Acute exacerbation of chronic obstructive airways disease J44.1 Cor pulmonale I27.81 CHF (congestive heart failure) I50.9 Cellulitis of right leg L03.115 Physical deconditioning R53.81 Nicotine addiction F17.200 Respiratory failure with hypoxia J96.21 Chronicity: acute on chronic Severe chronic obstructive pulmonary disease J44.9
[2023-02-03 11:43] LABS: SARS Covid-2 Antigen negative (Negative)
--- NOTE | 2023-02-03 14:19 | PC.NURSE ---
This nurse called and gave report to DEE Quigley at [facility] via phone at 1420. Discharge pending medicaid transport.
== END 2023-02-03 18:32 | disposition skilled nursing facility (03) | DRG 291 ==
LOC: ER 03:54 → ICU 04:17 → MEDSURG 01-29 16:37
PROVIDERS: Internal Medicine; Admitting Provider Internal Medicine; Emergency Provider Emergency Medicine; PCP Nurse Practitioner; Visit Provider Student in an Organized Health Care Education/Training Program
DX: I11.0 Hypertensive heart disease with heart failure (principal); G93.41 Metabolic encephalopathy; I50.33 Acute on chronic diastolic (congestive) heart failure; J96.22 Acute and chronic respiratory failure with hypercapnia; J96.21 Acute and chronic respiratory failure with hypoxia; J44.1 Chronic obstructive pulmonary disease with (acute) exacerbation; E87.3 Alkalosis; L03.115 Cellulitis of right lower limb; F17.210 Nicotine dependence, cigarettes, uncomplicated; Z99.81 Dependence on supplemental oxygen; I50.810 Right heart failure, unspecified; E78.5 Hyperlipidemia, unspecified; Z79.82 Long term (current) use of aspirin; R91.1 Solitary pulmonary nodule; R73.9 Hyperglycemia, unspecified; M19.90 Unspecified osteoarthritis, unspecified site; I87.2 Venous insufficiency (chronic) (peripheral); I27.81 Cor pulmonale (chronic); I27.29 Other secondary pulmonary hypertension; D69.6 Thrombocytopenia, unspecified; Z66 Do not resuscitate
CPT/HCPCS: 36415; 36600; 51702; 71045; 80048; 80053; 81001; 82140; 82803; 83735; 83880; 84484; 85025; 85610; 87070; 87077; 87186; 87205; 87426; 93005; 94640; 94660; 96372; 96374; 96376; 97110; 97116; 97161; 97166; 97530; 99291; C9113; J1100; J1650; J1940; J1956; J3475; J7613; J7626

== ENCOUNTER → 2023-02-12 14:38 | Outpatient (BNVA) | payer MEDICARE, MEDICAID, SELFPAY | PROVIDERS: PCP Nurse Practitioner; Visit Provider Nurse Practitioner Family | DX: L02.414 Cutaneous abscess of left upper limb (principal); Z51.89 Encounter for other specified aftercare | CPT/HCPCS: 87070 ==

== ENCOUNTER → 2023-02-27 14:08 | Outpatient (BNVA) | payer MEDICARE, MEDICAID, SELFPAY | PROVIDERS: PCP Nurse Practitioner; Visit Provider Nurse Practitioner Family | DX: I96 Gangrene, not elsewhere classified (principal); L98.492 Non-pressure chronic ulcer of skin of other sites with fat layer exposed | CPT/HCPCS: 11042; 99213 ==

== ENCOUNTER → 2023-03-06 14:36 | Outpatient (BNVA) | payer MEDICARE, MEDICAID, SELFPAY | PROVIDERS: PCP Nurse Practitioner; Visit Provider Nurse Practitioner Family | DX: I96 Gangrene, not elsewhere classified (principal); L98.492 Non-pressure chronic ulcer of skin of other sites with fat layer exposed | CPT/HCPCS: 11042; A6212; A6446 ==

== ENCOUNTER → 2023-03-13 13:42 | Outpatient (BNVA) | payer MEDICARE, MEDICAID, SELFPAY | PROVIDERS: PCP Nurse Practitioner; Visit Provider Nurse Practitioner Family | DX: I96 Gangrene, not elsewhere classified (principal); L98.492 Non-pressure chronic ulcer of skin of other sites with fat layer exposed; L97.122 Non-pressure chronic ulcer of left thigh with fat layer exposed | CPT/HCPCS: 97597; A6219 ==

== ENCOUNTER → 2023-03-19 11:57 | Outpatient (BNVA) | payer MEDICARE, MEDICAID, SELFPAY | PROVIDERS: PCP Nurse Practitioner; Visit Provider Nurse Practitioner | DX: E55.9 Vitamin D deficiency, unspecified (principal); I50.9 Heart failure, unspecified; E78.2 Mixed hyperlipidemia; J30.89 Other allergic rhinitis | CPT/HCPCS: 80053; 80061; 82306; 82607; 83540; 84443; 85025 ==

== ENCOUNTER → 2023-03-27 14:22 | Outpatient (BNVA) | payer MEDICARE, MEDICAID, SELFPAY | PROVIDERS: PCP Nurse Practitioner; Visit Provider Nurse Practitioner Family | DX: I96 Gangrene, not elsewhere classified (principal); L98.492 Non-pressure chronic ulcer of skin of other sites with fat layer exposed; Z09 Encounter for follow-up examination after completed treatment for conditions other than malignant neoplasm | CPT/HCPCS: 11042 ==

== ENCOUNTER → 2023-04-03 13:36 | Outpatient (BNVA) | payer MEDICARE, MEDICAID, SELFPAY | PROVIDERS: PCP Nurse Practitioner; Visit Provider Nurse Practitioner Family | DX: I96 Gangrene, not elsewhere classified (principal); L98.492 Non-pressure chronic ulcer of skin of other sites with fat layer exposed | CPT/HCPCS: 11042 ==

== ENCOUNTER → 2023-04-17 12:49 | Outpatient (BNVA) | payer MEDICARE, MEDICAID, SELFPAY | PROVIDERS: PCP Nurse Practitioner; Visit Provider Nurse Practitioner Family | DX: I96 Gangrene, not elsewhere classified (principal); L98.492 Non-pressure chronic ulcer of skin of other sites with fat layer exposed | CPT/HCPCS: 11042; A6219 ==

== ENCOUNTER → 2023-05-08 13:41 | Outpatient (BNVA) | payer MEDICARE, MEDICAID, SELFPAY | PROVIDERS: PCP Nurse Practitioner; Visit Provider Nurse Practitioner Family | DX: I96 Gangrene, not elsewhere classified (principal); L98.492 Non-pressure chronic ulcer of skin of other sites with fat layer exposed | CPT/HCPCS: 11042; A6219 ==

== ENCOUNTER 2023-05-13 07:33 | Outpatient (CLI) | payer MEDICARE, MEDICAID, SELFPAY ==
--- NOTE | 2023-05-13 08:00 | CT_ITS ---
WS: [id number] CT CHEST, ABDOMEN, AND PELVIS TECHNIQUE: Noncontrast CT of the chest, abdomen, and pelvis with coronal and sagittal reformatted jaylen ges. CLINICAL INFORMATION: R91.1 - Solitary pulmonary nodule COMPARISON: CT chest 11/07/2022 DLP: 975.[address] scans at [facility] use at least one of these dose optimization techniques: automated e xposure control; mA and/or kV adjustment per patient size (includes targeted exams where dose is matc hed to clinical indication); or iterative reconstruction. CT CHEST: Advanced chronic centrilobular emphysematous change. Stable 8 mm LEFT upper lobe subpleural pulmonary nodule. Additional stable subcentimeter nodules bilaterally are similar in appearance. Subpleural no dularity RIGHT upper lobe is stable. Notable 8 mm nodule RIGHT upper lobe is stable. No mediastinal or hilar lymphadenopathy. No axillary lymphadenopathy. CT ABDOMEN AND PELVIS: Normal noncontrast liver. Normal noncontrast spleen. Normal GE junction. Diffuse gastric wall thicken ing with thickening of the rugal folds suspicious for gastritis. This could be further evaluated with endoscopy. Normal noncontrast pancreas. Adrenal glands are normal. No hydronephrosis in either kidne y. Normal caliber abdominal aorta. Aortic calcification. Urine distended bladder. Small cystocele. No ab dominal or pelvic lymphadenopathy. No high-grade small large bowel obstruction. Disc narrowing worse at L3-4. Noncontrast gallbladder appears normal. Sclerotic changes in both femoral heads. Correlation for hip pain. IMPRESSION: 1. Stable pulmonary nodules in both lungs. Largest nodules in the upper lobes bilaterally measuring 8 mm are unchanged. 2. No mediastinal or hilar lymphadenopathy. 3. Stable advanced chronic emphysematous changes. 4. Diffuse gastric wall thickening with thickening of the rugal folds suspicious for gastritis. This could be further evaluated with endoscopy 5. Sclerotic changes both femoral heads. Recommend correlation with hip pain.
[2023-05-13] MEDS: iohexol 350 mg/mL 500 mL Btl (per mL) PO (08:29)
== END 2023-05-13 07:34 | disposition home or self-care (01) ==
PROVIDERS: PCP Nurse Practitioner; Visit Provider Nurse Practitioner
DX: R10.11 Right upper quadrant pain (principal); R10.12 Left upper quadrant pain; R91.8 Other nonspecific abnormal finding of lung field
CPT/HCPCS: 71250; 74176; Q9967

== ENCOUNTER → 2023-05-22 13:25 | Outpatient (BNVA) | payer MEDICARE, MEDICAID, SELFPAY | PROVIDERS: PCP Nurse Practitioner; Visit Provider Nurse Practitioner Family | DX: I96 Gangrene, not elsewhere classified (principal); L98.492 Non-pressure chronic ulcer of skin of other sites with fat layer exposed | CPT/HCPCS: 11042; A6219 ==

== ENCOUNTER → 2023-06-12 13:55 | Outpatient (BNVA) | payer MEDICARE, MEDICAID, SELFPAY | PROVIDERS: PCP Nurse Practitioner; Visit Provider Nurse Practitioner Family | DX: Z09 Encounter for follow-up examination after completed treatment for conditions other than malignant neoplasm (principal); Z87.2 Personal history of diseases of the skin and subcutaneous tissue | CPT/HCPCS: 99212; A6212 ==

== ENCOUNTER → 2023-06-16 14:47 | Outpatient (BNVA) | payer MEDICARE, MEDICAID, SELFPAY | PROVIDERS: PCP Nurse Practitioner; Referring Provider Nurse Practitioner; Visit Provider Surgery | DX: K21.9 Gastro-esophageal reflux disease without esophagitis (principal); R53.81 Other malaise; I27.81 Cor pulmonale (chronic); F17.200 Nicotine dependence, unspecified, uncomplicated; I50.9 Heart failure, unspecified; J96.21 Acute and chronic respiratory failure with hypoxia | CPT/HCPCS: 99205 ==

== ENCOUNTER 2023-07-17 06:41 | Day surgery (SDC) | payer MEDICARE, MEDICAID, SELFPAY ==
--- NOTE | 2023-07-14 10:10 | ANES.PREANE2 ---
Pre-Anesthetic Assessment Height/Weight: Height 1.83 m Operation Date: 07/17/23 11:30 Proposed Procedures p [id number] egd K21.9(Not Applicable) - Jonny Cisneros MD Familial anesthetic complications: none Was Beta Mckayla taken within 24 hours: Yes Was Clonidine taken within 24 hours: N/A Social Tobacco and No alcohol Exam alert, oriented x 3 and regular rate & rhythm Airway Submandibular: within normal limits Cervical ROM: within normal limits Mallampati: Class I Dentition: false Pulmonary Chronic Obstructive Pulmonary Disease Home O2 6L CV/HEM Anemia and Hypertension CONCLUSIONS Left ventricular cavity not well visualized. Normal left ventricular size, systolic function and wall thickness, with no regional wall motion abnormalities. Grade I/IV diastolic dysfunction (abnormal relaxation filling pattern), normal to mildly elevated filling pressures. Left ventricular ejection fraction is estimated at 60%. Technically limited study. No significant valve abnormalities. No change from the previous study done 04/03/2015 Dr. Villa Hart MD (Electronically Signed) Final Date: 26 September 2019 GI Gastroesophageal Reflux Disease Gastritis Musc/skel Lower Back Pain and Osteoarthritis/DJD Anesthetic Plan ASA status: 4 Anesthesia: MAC Medications/Allergies Home Medications Medication Instructions Recorded Confirmed Last Taken Type compressor, for nebulizer #1 ea 05/31/21 06/16/23 Unknown Rx revefenacin 175 mcg/3 mL solution 175 mcg (3 mL) inhalation DAILY 10/09/22 07/14/23 07/13/23 Rx for nebulization (Yupelri) #30 vials mupirocin 2 % topical ointment 1 applic topical BID #22 grams 10/17/22 07/14/23 Unknown Rx azithromycin 250 mg tablet 250 mg PO .COMPLEX 90 days #45 tabs 11/28/22 07/14/23 07/11/23 Rx formoterol fumarate 20 mcg/2 mL 2 ml inhalation Q12H 01/28/23 07/14/23 07/13/23 History solution for nebulization (Perforomist) furosemide 40 mg tablet 40 mg PO DAILY 30 days #60 tabs 02/03/23 07/14/23 07/13/23 Rx azelastine-fluticasone 137 mcg-50 1 spray intranasal BID #23 grams 03/19/23 07/14/23 07/14/23 Rx mcg/spray nasal spray metoprolol tartrate 25 mg tablet 25 mg PO BID #60 tabs 03/19/23 07/14/23 07/13/23 Rx sacubitril 24 mg-valsartan 26 mg See Rx Instructions PO BID 04/30/23 07/14/23 07/13/23 History tablet (Entresto) atorvastatin 40 mg tablet 40 mg PO BEDTIME #30 tabs 07/03/23 07/14/23 07/13/23 Rx ergocalciferol (vitamin D2) 1,250 1,250 mcg PO .monthly #1 cap 07/03/23 07/14/23 07/11/23 Rx mcg (50,000 unit) capsule ferrous sulfate 325 mg (65 mg 325 mg PO DAILY #30 tabs 07/03/23 07/14/23 07/13/23 Rx iron) tablet levalbuterol HCl 1.25 mg/3 mL 1.25 mg (3 mL) inhalation QID PRN 07/07/23 07/14/23 07/13/23 Rx solution for nebulization shortness of breath or wheezing #300 mL aspirin 81 mg tablet,delayed 325 mg PO DAILY 07/14/23 07/14/23 07/13/23 History release budesonide 0.5 mg/2 mL suspension 0.5 mg inhalation Q12H 07/14/23 07/14/23 07/13/23 History for nebulization (Pulmicort) potassium chloride 20 mEq See Rx Instructions .Route .COMPLEX 07/14/23 07/14/23 07/13/23 History tablet,extended release 20 meq Allergies Allergy/AdvReac Type Severity Reaction Status Date / Time celecoxib [From Celebrex] Allergy Unknown Verified 07/14/23 09:43 simvastatin Allergy Unknown Verified 07/14/23 09:43 [facility] Anesthesia Medical History (Updated 06/16/23 @ 15:29 by Jonny Cisneros MD) Environmental and seasonal allergies CHF (congestive heart failure) Hyperglycemia Hyperlipidemia Hypertension Severe chronic obstructive pulmonary disease Surgical History (Updated 06/16/23 @ 14:59 by SARAH Goodrich) History of colonoscopy with polypectomy 2014 Hx of inguinal hernia surgery Family History Brother Diabetes Social History Smoking and tobacco/nicotine status: current every day tobacco/nicotine user cigarettes Packs smoked per day: 1 Years cigarettes smoked: 48 [ Other cigarette details: Hx of 2PPD, started at age 13] Quit status (tobacco/nicotine): considering quitting Second hand smoke exposure: Yes Alcohol intake: never Substance/Drug Use: never Adopted: No Caregiver/support person: No Lives independently: Yes Household members: children Housing: House Marital status: Single service: No Current occupational status: disabled Do you think of yourself as: Straight/Heterosexual Current gender identity: Male Data Anesthesia Cardiac Studies: Echocardiogram Ultrasound 09/26/19
--- NOTE | 2023-07-17 06:50 | W.PM.OPSFHP ---
Same Day Surgery H&P Indication for Procedure/HPI DATE OF PROCEDURE: July 17, 2023 CHIEF COMPLAINT/INDICATIONFOR SURGICAL PROCEDURE: upper GI symptoms PREOP DIAGNOSIS: GERD PLANNED PROCEDURE: Operation Date: 07/17/23 07:40 Proposed Procedures p [id number] egd K21.9(Not Applicable) - Jonny Cisneros MD Medications/Allergies* Home Medications Medication Instructions Recorded Confirmed Type formoterol fumarate 20 mcg/2 mL 2 ml inhalation Q12H 01/28/23 07/14/23 History solution for nebulization (Perforomist) sacubitril 24 mg-valsartan 26 mg See Rx Instructions PO BID 04/30/23 07/14/23 History tablet (Entresto) aspirin 81 mg tablet,delayed 325 mg PO DAILY 07/14/23 07/14/23 History release budesonide 0.5 mg/2 mL suspension 0.5 mg inhalation Q12H 07/14/23 07/14/23 History for nebulization (Pulmicort) potassium chloride 20 mEq See Rx Instructions .Route .COMPLEX 07/14/23 07/14/23 History tablet,extended release Allergies/Adverse Reactions Allergy/AdvReac Type Severity Reaction Status Date / Time celecoxib [From Celebrex] Allergy Unknown Verified 07/14/23 09:43 simvastatin Allergy Unknown Verified 07/14/23 09:43 Pertinent History/Comorbid Conditions* Medical History (Updated 06/16/23 @ 15:29 by Jonny Cisneros MD) Environmental and seasonal allergies CHF (congestive heart failure) Hyperglycemia Hyperlipidemia Hypertension Severe chronic obstructive pulmonary disease Surgical History (Updated 10/06/19 @ 10:05 by EMMIE Freedman) History of colonoscopy with polypectomy 2014 Hx of inguinal hernia surgery Family History (Updated 09/26/19 @ 01:40 by Harry Fair MD) Diabetes Brother Social History Smoking and tobacco/nicotine status: current every day tobacco/nicotine user cigarettes Packs smoked per day: 1 Years cigarettes smoked: 48 [ Other cigarette details: Hx of 2PPD, started at age 13] Quit status (tobacco/nicotine): considering quitting Second hand smoke exposure: Yes Alcohol intake: never Substance/Drug Use: never Adopted: No Caregiver/support person: No Lives independently: Yes Household members: children Housing: House Marital status: Single service: No Current occupational status: disabled Do you think of yourself as: Straight/Heterosexual Current gender identity: Male Pertinent Exam Findings alert, oriented x 3, clear to auscultation bilaterally and regular rate & rhythm Recommendations Surgery/Procedure today Coding Level of Care Code Acute Code for Chg [place]
[2023-07-17 06:55] VITALS: BP 127/64; PULSE 80; RESP 20; TEMP 36.7; O2SAT 93
[2023-07-17 07:05] VITALS: BMI 27.1
--- NOTE | 2023-07-17 07:08 | P.ANESUD_ITS ---
Pre-Anesthetic Update Pre-Anesthetic Assessment: Date of Surgery/Procedure: 07/17/23 Preop Sandra gnosis: GERD Proposed Procedure: Operation Date: 07/17/23 07:40 Proposed Procedures p [id number] egd K21.9(Not Applicable) - Jonny Cisneros MD Any changes to Pre-Anesthetic Assessment?: No Last Intake: solid: 07/16/23 @2300 Liquid: 07/17/23 @0500 (sip of black coffee) Vitals: Temperature 98.0 F 07/17/23 06:55 Temperature Source Temporal Artery S can 07/17/23 06:55 Pulse Rate 80 07/17/23 06:55 Respiratory Rate 20 H 07/17/23 06:55 Blood Pressure 127/64 07/17/23 06:55 Blood Pressure Lucille n 85 07/17/23 06:55 Pulse Oximetry 93 07/17/23 06:55 Oxygen Delivery Me thod Nasal Cannula 07/17/23 06:55 Oxygen Flow Rate 6 07/17/23 06:55 Exam: Pre-Anes Outpt Exam: alert and oriented x 3 Cardiac Studies: Echocardiogram Ultrasound 09/26/19
[2023-07-17] MEDS: sodium chloride 0.9% 1,000 ML 30 ML IV (07:13)
[2023-07-17] MEDS: ipratropium-albuterol 3 mL Neb INHALATION (07:17)
[2023-07-17 07:21] VITALS: PULSE 79; RESP 20; O2SAT 93
[2023-07-17 07:29] VITALS: PULSE 83
[2023-07-17 08:09] VITALS: BP 96/72; PULSE 79; RESP 14; TEMP 36.3; O2SAT 96
[2023-07-17 08:21] VITALS: BP 119/58; PULSE 78; RESP 16; O2SAT 97
[2023-07-17 08:30] VITALS: BP 107/64; PULSE 74; RESP 16; O2SAT 93
--- NOTE | 2023-07-17 15:43 | ANE.PACU2 ---
Inpatient post-anesthesia follow up: Airway intact: Yes Vital signs: Temperature 97.3 F Pulse Rate 74 Respiratory Rate 16 Blood Pressure 107/64 Pulse Oximetry 93 Oxygen Delivery Me thod Nasal Cannula Oxygen Flow Rate 6 Fraction of Inspir ed Oxygen Hydration adequate: Yes Nausea and vomiting: No Pain level: 2 Mental status: Baseline
== END 2023-07-17 09:00 | disposition home or self-care (01) ==
PROVIDERS: PCP Nurse Practitioner; Visit Provider Surgery
PROC: 0DJ08ZZ Inspection of Upper Intestinal Tract, Via Natural or Artificial Opening Endoscopic (ICD-10-PCS; CPT 43235; principal; 2023-07-17 07:40)
DX: K21.9 Gastro-esophageal reflux disease without esophagitis (principal); K29.50 Unspecified chronic gastritis without bleeding; K29.80 Duodenitis without bleeding; Z79.82 Long term (current) use of aspirin; I11.0 Hypertensive heart disease with heart failure; I50.9 Heart failure, unspecified; E78.5 Hyperlipidemia, unspecified; J44.9 Chronic obstructive pulmonary disease, unspecified; F17.210 Nicotine dependence, cigarettes, uncomplicated; Z99.81 Dependence on supplemental oxygen
CPT/HCPCS: 43239; 88305; 88342; 94640; J2704; J7030

== ENCOUNTER → 2023-08-07 15:11 | Outpatient (BNVA) | payer MEDICARE, MEDICAID, SELFPAY | PROVIDERS: PCP Nurse Practitioner; Visit Provider Surgery | DX: Z09 Encounter for follow-up examination after completed treatment for conditions other than malignant neoplasm (principal) | CPT/HCPCS: 99213 ==

== ENCOUNTER → 2023-09-18 14:47 | Outpatient (BNVA) | payer MEDICARE, MEDICAID, SELFPAY | PROVIDERS: PCP Nurse Practitioner; Visit Provider Nurse Practitioner | DX: I50.9 Heart failure, unspecified (principal); E78.2 Mixed hyperlipidemia; J30.89 Other allergic rhinitis; E55.9 Vitamin D deficiency, unspecified; E61.1 Iron deficiency; I10 Essential (primary) hypertension; Z79.899 Other long term (current) drug therapy | CPT/HCPCS: 80053; 80061; 82306; 83540; 84443; 85025 ==

== ENCOUNTER → 2024-01-15 16:17 | Outpatient (BNVA) | payer MEDICARE, MEDICAID, SELFPAY | PROVIDERS: PCP Nurse Practitioner; Visit Provider Nurse Practitioner | DX: R10.9 Unspecified abdominal pain (principal); E78.2 Mixed hyperlipidemia; J30.89 Other allergic rhinitis; E55.9 Vitamin D deficiency, unspecified; E61.1 Iron deficiency; I50.9 Heart failure, unspecified; I50.32 Chronic diastolic (congestive) heart failure; I10 Essential (primary) hypertension; Z79.899 Other long term (current) drug therapy | CPT/HCPCS: 80053; 82607; 83880; 84443; 85025 ==

== ENCOUNTER 2024-02-04 08:18 | Outpatient (CLI) | payer MEDICARE, MEDICAID, SELFPAY ==
[2024-02-04] MEDS: iohexol 350 mg/mL 500 mL Btl (per mL) PO (09:16)
--- NOTE | 2024-02-04 09:30 | CTR_ITS ---
PROCEDURE INFORMATION: Exam: CT Abdomen And Pelvis With Contrast Exam date and time: 02/04/2024 9:42 AM Age: 63 years old Clinical indication: Abdominal pain; Generalized; Prior surgery; Surgery date: 6+ months; Patient HX: Pain in stomache after eating, wt loss, no appetite, umbilical hernia pain; Additional info: R10.9 - unspecified abdominal pain TECHNIQUE: Imaging protocol: Computed tomography of the abdomen and pelvis with contrast. Radiation optimization: All CT scans at this facility use at least one of these dose optimization techniques: automated exposure control; mA and/or kV adjustment per patient size (includes targeted exams where dose is matched to clinical indication); or iterative reconstruction. Contrast material: OMNI 350; Contrast volume: 100 ml; Contrast route: INTRAVENOUS (IV); COMPARISON: [place] [id number] 05/13/2023 8:23 AM RADIATION DOSE METRICS: Total DLP (mGy-cm): 511.57 FINDINGS: Lungs: No infiltrate or effusion is seen within the visualized lung bases. Liver: Normal. No mass. Gallbladder and biliary ducts: Normal. No calcified stones. No ductal dilation. Pancreas: Normal. No ductal dilation. Spleen: Normal. No splenomegaly. Adrenal glands: Normal. No mass. Kidneys and ureters: Very small rounded hypodense focus medial mid to upper pole cortex of the right kidney likely small renal cyst when correlated with 2022 exam. Kidneys are otherwise unremarkable. No urinary tract stone or obstructive uropathy or perinephric stranding. Stomach and bowel: Incompletely distended stomach. Gastric thickening versus appearance related to underdistention. No bowel obstruction. [id number] stool content in the colon and consider constipation. No pericolonic mesenteric stranding or focal inflammatory changes. Appendix: No evidence of appendicitis. Intraperitoneal space: No free fluid or ascites or fluid collection. No free air. Vasculature: Mild atherosclerotic calcification of the abdominal aorta and iliac arteries with nonaneurysmal abdominal aorta. Major vascular structures appear patent. Lymph nodes: No significant lymphadenopathy. Urinary bladder: Underdistended urinary bladder with nonspecific wall thickening. Reproductive: Mild prostate enlargement. 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 Chronic sclerotic change of the bilateral femoral heads with 2022 exam. Soft tissues: Mild inguinal fat hernias bilaterally. CT/CT abdomen pelvis w con* [id number] IMPRESSION: 1. Gastric thickening versus appearance related to incomplete distension. 2. [id number] stool content in the colon and consider constipation. 3. Underdistended urinary bladder with nonspecific wall thickening. 4. Mild inguinal fat hernias bilaterally. No findings of bowel hernia. 5. No acute findings otherwise. COMMENTS: Consistent with the [employer]'s Incidental Findings Committee white paper (J Am Hernando Radiol 2018): Any incidental renal lesion less than 1 cm or classified as too small to characterize, or any incidental cystic renal lesion characterized as simple-appearing, is likely benign. No follow-up imaging is recommended for these lesions per consensus recommendations based on imaging criteria.
[2024-02-04] MEDS: iohexol 350 mg/mL 500 mL Btl (per mL) IV (09:52)
== END 2024-02-04 08:19 | disposition home or self-care (01) ==
PROVIDERS: PCP Nurse Practitioner; Visit Provider Nurse Practitioner
DX: K31.89 Other diseases of stomach and duodenum (principal); Z98.890 Other specified postprocedural states; K56.41 Fecal impaction; N32.89 Other specified disorders of bladder; R10.9 Unspecified abdominal pain
CPT/HCPCS: 74177; Q9967